=== PATIENT | male | born 1950 | race Caucasian/White ===

== ENCOUNTER 2023-06-19 11:35 | Inpatient (IN) | payer BC, MEDICARE ==
--- NOTE | 2023-06-19 12:15 | ED ---
Abdominal Pain HPI - General Chief Complaint: Abdominal Pain Stated Complaint: ABD pain Time Seen by Provider: 06/19/23 11:50 Source: patient, RN notes reviewed Mode of arrival: EMS Limitations: no limitations - History of Present Illness Initial Comments: Patient is a 72-year-old man who presents to the ED via EMS with a chief complaint of abdominal pain. Patient states this pain started 2 weeks ago and has been increasing since. Patient's pain is localized to the left lower quadrant and periumbilical region and is colicky in nature. Patient denies constipation, but endorses diarrhea over the past 2 days. Denies dark or tarry stools or blood in stool, urinary frequency and urgency. Patient saw his PCP last week, who ordered an abdominal x-ray, which revealed no acute process and was informed by PCP to visit ER for further evaluation due to worsening pain. Patient has a history of multiple abdominal aneurysms, and follows with a vascular team where he is scheduled to see them in August. Patient had reconstructive surgery of his abdominal aorta multiple times. Denies history of CVA and NV. Patient is not on a blood thinner. - Related Data Allergies Allergy/AdvReac Type Severity Reaction Status Date / Time Sulfa (Sulfonamide Allergy Rash/Hives Verified 06/19/23 11:44 Antibiotics) Review of Systems ROS Statement: Those systems with pertinent positive or pertinent negative responses have been documented in the HPI. ROS Other: All systems not noted in ROS Statement are negative. Past Medical History Past Medical History: Diabetes Mellitus, Hypertension Additional Past Medical History / Comment(s): AAA - 2009 History of Any Multi-Drug Resistant Organisms: None Reported Additional Past Surgical History / Comment(s): Aortic aneurysm repair Past Psychological History: No Psychological Hx Reported Smoking Status: Never smoker Past Alcohol Use History: Rare Past Drug Use History: None Reported General Exam Limitations: no limitations General appearance: alert, in no apparent distress Head exam: Present: atraumatic, normocephalic, normal inspection Eye exam: Present: normal appearance, PERRL, EOMI. Absent: scleral icterus, conjunctival injection, periorbital swelling Respiratory exam: Present: normal lung sounds bilaterally. Absent: respiratory distress, wheezes, rales, rhonchi, stridor Cardiovascular Exam: Present: regular rate, normal rhythm, normal heart sounds. Absent: systolic murmur, diastolic murmur, rubs, gallop, clicks GI/Abdominal exam: Present: soft, distended, tenderness (left lower quadrant and periumbilical region), normal bowel sounds Extremities exam: Present: normal inspection, full ROM, normal capillary refill. Absent: tenderness, pedal edema, joint swelling, calf tenderness Back exam: Present: normal inspection Neurological exam: Present: alert, oriented X3, CN II-XII intact Course Vital Signs 06/19/23 11:38 Temperature 98.3 F Pulse Rate 64 Respiratory 18 Rate Blood Pressure 160/81 O2 Sat by Pulse 65 L Oximetry Medical Decision Making - Medical Decision Making Was pt. sent in by a medical professional or institution (, PA, [employer], urgent care, hospital, or longterm...) When possible be specific @ -Was instructed by PCP to come to the ER to be further evaluated for his abdominal pain Did you speak to anyone other than the patient for history (EMS, parent, family, police, friend...)? What history was obtained from this source @ -No Did you review nursing and triage notes (agree or disagree)? Why? @ -I reviewed and agree with nursing and triage notes Were old charts reviewed (outside hosp., previous admission, EMS record, old EKG, old radiological studies, urgent care reports/EKG's, longterm records)? Report findings @ -No old charts were reviewed Differential Diagnosis (chest pain, altered mental status, abdominal pain women, abdominal pain men, vaginal bleeding, weakness, fever, dyspnea, syncope, headache, dizziness, GI bleed, back pain, seizure, CVA, palpatations, mental health, musculoskeletal)? @ -Differential Abdominal Pain Men: Appendicitis, cholecystitis, diverticulosis, ischemic bowel, pancreatitis, hepatitis, UTI, gastroenteritis, AAA, incarcerated hernia, bowel obstruction, constipation, inflammatory bowel, hepatitis, peptic ulcer disease, splenic infarction, perforated viscus, testicular torsion, this is not meant to be an all-inclusive list EKG interpreted by me (3pts min.). @ -None X-rays interpreted by me (1pt min.). @ -None done CT interpreted by me (1pt min.). @ -Ct revealed pathological fracture of the T10 vertebral body and Scattered pulmonary nodules determined by radiology. U/S interpreted by me (1pt. min.). @ -None done What testing was considered but not performed or refused? (CT, X-rays, U/S, labs)? Why? @ -None What meds were considered but not given or refused? Why? @ -None Did you discuss the management of the patient with other professionals (professionals i.e. , PA, [employer], lab, RT, psych nurse, criminal justice social worker, time clock repairer, teacher, prison officer, rn field case manager)? Give summary @ -Discussed with attending admission for further evaluation and treatment by Ortho and oncology Was smoking cessation discussed for >3mins.? @ -No Was critical care preformed (if so, how long)? @ -No Were there social determinants of health that impacted care today? How? (Homelessness, low income, unemployed, alcoholism, drug addiction, transportation, low edu. Level, literacy, decrease access to med. care, fci, r ehab)? @ -No Was there de-escalation of care discussed even if they declined (Discuss DNR or withdrawal of care, Hospice)? DNR status @ -No What co-morbidities impacted this encounter? (DM, HTN, Smoking, COPD, CAD, Cancer, CVA, ARF, Chemo, Hep., AIDS, mental health diagnosis, sleep apnea, morbid obesity)? @ -Diabetes Was patient admitted / discharged? Hospital course, mention meds given and route, prescriptions, significant lab abnormalities, going to OR and other pertinent info. @ -Admitted. 89-year-old male presented to the ED with chief complaint of abdominal pain. CT results concerning for pathological fracture in T10, and multiple scattered nodules in the lungs with a recommendation for metastatic workup. Significant for mild acidosis, fluid bolus given. Patient's pain given IV push of morphine for pain control. Undiagnosed new problem with uncertain prognosis? @ - Yes. Concern for potential metastatic disease. Drug Therapy requiring intensive monitoring for toxicity (Heparin, Nitro, Insulin, Cardizem)? @ -No Were any procedures done? @ -No Diagnosis/symptom? @ -Pathological fracture and metastatic disease Acute, or Chronic, or Acute on Chronic? @ -Acute Uncomplicated (without systemic symptoms) or Complicated (systemic symptoms)? @ -Complicated Side effects of treatment? @ -No Exacerbation, Progression, or Severe Exacerbation? @ -No Poses a threat to life or bodily function? How? (Chest pain, USA, NV, pneumonia, PE, COPD, DKA, ARF, appy, cholecystitis, CVA, Diverticulitis, Homicidal, Suicidal, threat to staff... and all critical care pts) @ -Yes, Probable. CT results likely reveal underlying metastatic disease. - Lab Data Result diagrams: 06/19/23 12:53 06/19/23 12:53 Lab Results 06/19/23 06/19/23 06/19/23 Range/Units 12:53 12:53 12:53 WBC 8.4 (3.8-10.6) k/uL RBC 4.62 (4.30-5.90) m/uL Hgb 15.3 (13.0-17.5) gm/dL Hct 45.9 (39.0-53.0) % MCV 99.3 (80.0-100.0) fL MCH 33.1 (25.0-35.0) pg MCHC 33.3 (31.0-37.0) g/dL RDW 12.3 (11.5-15.5) % Plt Count 247 (150-450) k/uL MPV 7.7 Neutrophils % 77 % Lymphocytes % 12 % Monocytes % 6 % Eosinophils % 2 % Basophils % 1 % Neutrophils # 6.5 (1.3-7.7) k/uL Lymphocytes # 1.1 (1.0-4.8) k/uL Monocytes # 0.5 (0-1.0) k/uL Eosinophils # 0.2 (0-0.7) k/uL Basophils # 0.0 (0-0.2) k/uL Sodium 134 L (137-145) mmol/L Potassium 4.6 (3.5-5.1) mmol/L Chloride 107 (98-107) mmol/L Carbon Dioxide 20 L (22-30) mmol/L Anion Gap 7 mmol/L BUN 24 H (9-20) mg/dL Creatinine 1.35 H (0.66-1.25) mg/dL Est GFR (CKD-EPI)AfAm 60 (>60 ml/min/1.73 sqM) Est GFR (CKD-EPI)NonAf 52 (>60 ml/min/1.73 sqM) Glucose 175 H (74-99) mg/dL Plasma Lactic Acid Simone 1.2 (0.7-2.0) mmol/L Calcium 9.3 (8.4-10.2) mg/dL Total Bilirubin 1.1 (0.2-1.3) mg/dL AST 34 (17-59) U/L ALT 28 (4-49) U/L Alkaline Phosphatase 179 H (38-126) U/L Total Protein 6.8 (6.3-8.2) g/dL Albumin 3.9 (3.5-5.0) g/dL Amylase 65 (30-110) U/L Disposition Clinical Impression: Pathological fracture, Pulmonary nodules/lesions, multiple Disposition: ADMITTED IP TO THIS HOSP Condition: Good Referrals: Ambrocio Senior MD [Primary Care Provider] - 1-2 days Time of Disposition: 15:15
[2023-06-19 12:58] LABS: Basophils % (A) 1 %; Eosinophils # (A) 0.2 k/uL (0-0.7); Eosinophils % (A) 2 %; HCT 45.9 % (39.0-53.0); HGB 15.3 gm/dL (13.0-17.5); Lymphocytes # (A) 1.1 k/uL (1.0-4.8); Lymphocytes % (A) 12 %; MCH 33.1 pg (25.0-35.0); MCHC 33.3 g/dL (31.0-37.0); MCV 99.3 fL (80.0-100.0); Mean Platelet Volume 7.7; Monocytes # (A) 0.5 k/uL (0-1.0); Monocytes % (A) 6 %; Neutrophils # (A) 6.5 k/uL (1.3-7.7); Neutrophils % (A) 77 %; Platelet Count 247 k/uL (150-450); RBC 4.62 m/uL (4.30-5.90); RDW 12.3 % (11.5-15.5); WBC 8.4 k/uL (3.8-10.6)
[2023-06-19 13:11] LABS: ALT 28 U/L (4-49); AST 34 U/L (17-59); African American GFR (CKD) 60 (>60 ml/min/1.73 sqM); Albumin 3.9 g/dL (3.5-5.0); Alkaline Phosphatase 179 U/L (38-126); Amylase 65 U/L (30-110); Anion Gap 7 mmol/L; Blood Urea Nitrogen 24 mg/dL (9-20); Calcium 9.3 mg/dL (8.4-10.2); Carbon Dioxide 20 mmol/L (22-30); Chloride 107 mmol/L (98-107); Glucose 175 mg/dL (74-99); Non-African American GFR(CKD) 52 (>60 ml/min/1.73 sqM); Potassium 4.6 mmol/L (3.5-5.1); Sodium 134 mmol/L (137-145); Total Bilirubin 1.1 mg/dL (0.2-1.3); Total Protein 6.8 g/dL (6.3-8.2)
[2023-06-19] MEDS: SODIUM CHLORIDE 0.9% 500 ML 500 ML IV STA (13:28)
[2023-06-19] MEDS: ONDANSETRON 4 MG/2 ML VIAL IVP STA (14:46)
[2023-06-19] MEDS: MORPHINE SULFATE 2 MG/ML SYRINGE IVP ONE (14:48)
--- NOTE | 2023-06-19 14:48 | CT ---
EXAMINATION TYPE: CT abdomen pelvis w con CT DLP: 2028.9 mGycm, Automated exposure control for dose reduction was used. DATE OF EXAM: 06/19/2023 2:30 PM COMPARISON: None CLINICAL INDICATION:Male, 72 years old with history of pain; LLQ pain TECHNIQUE: Axial CT abdomen pelvis w con;Sagittal and coronal reformats were created on a separate w orkstation. Contrast used:80 mL of Isovue 300 with IV Contrast, (none if empty) Oral contrast used: without Oral Contrast (none if empty) FINDINGS: LOWER CHEST: Scattered pulmonary nodules measuring up to 11 mm in the left lower lobe and millimeters in the right lower lobe. Heart is mildly enlarged for size. Gynecomastia changes. ABDOMEN LIVER: Diffusely hypoattenuating parenchyma. GALLBLADDER AND BILE DUCTS: Unremarkable. PANCREAS: Unremarkable. SPLEEN: Unremarkable. ADRENAL GLANDS: Unremarkable. KIDNEYS AND URETERS: No evidence of hydronephrosis or renal calculus. The ureters are unremarkable. PELVIS BLADDER: Unremarkable REPRODUCTIVE: Prostate is enlarged in size measuring 5.5 cm in transverse dimension. ABDOMEN & PELVIS STOMACH AND BOWEL: No evidence of bowel obstruction. PERITONEUM/RETROPERITONEUM: No evidence of pneumoperitoneum or free fluid. VASCULATURE: No evidence of aortic aneurysm. Left common iliac artery stent graft is patent. Fusiform dilation of the celiac axis just after its origin measuring up to 13 mm. MUSCULOSKELETAL: There is a lucent lesion in the T10 vertebral body and possibly involving T9 and T11 vertebral bodies. There is a fracture line extending through the T10 vertebral body anterior to post erior with extension into the posterior elements the pedicle on the right. Vertebral body series 301 image 19. Moderate disc degeneration changes are present throughout the thoracolumbar spine. Pseudoar throsis of the spinous processes with severe facet joint arthropathy throughout the lower spine. LYMPH NODES: No gross evidence for lymphadenopathy. SOFT TISSUE/ABDOMINAL WALL: Fat-containing inguinal hernias. Fat-containing umbilical hernia. IMPRESSION: 1. Pathologic fracture of the T10 vertebral body. Given there is bridging syndesmophytes throughout the spine, this makes this fracture a pathologic brittle back fracture. Spinal surgical consultation recommended. Further workup for malignancy also recommended. 2. Scattered pulmonary nodules partially visualized consistent for metastatic disease. Further leonora p for malignancy also recommended. 3. 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 4. Prostatomegaly correlate with serum PSA. 5. Hepatic steatosis 6. Left iliac artery stent graft is patent.
[2023-06-19] MEDS ORDERED: NALOXONE 0.4 MG/ML 1 ML VIAL IV PRN (15:39)
[2023-06-19 21:35] LABS: INR 0.9 (<1.2); Partial Thromboplastin Time 23.9 sec (22.0-30.0); Prothrombin Time 10.3 sec (10.0-12.5)
[2023-06-19] MEDS: MORPHINE SULFATE 4 MG/ML SYRINGE IV PRN (23:35)
[2023-06-19] MEDS: ONDANSETRON 4 MG/2 ML VIAL IVP PRN (23:36)
--- NOTE | 2023-06-20 06:48 | P.HPIM ---
History of Present Illness this is a pleasant 72 yo male with past medical history of diabetes , mellitus and hypertension , hyperlipidemia , peripheral vascular disease who present because of abdominal pain , he has this pain for about two weeks now and it started as mild pain in the lower and middle abdomen on the left side at the area of the left flank and was radiating to the front at the level of the umbilicus , he went to see his pcp who did xray for him but this came back negative , it is thought to be a pulled muscle by his doctor so prescribed some excersizes for him , but over the last few days his pain became really worse so he decided to come to the hospital, his pain is 0 without movement shortness of 28-9/10 in severity with movement besides his abdominal exam is benign soft with no abdominal tenderness. The pain feels like sharp. No associated nausea vomiting, he has little bowel movement yesterday. No diarrhea. Patient denies chest pain dyspnea or coughing. No urinary complaints. No weakness or tingling in upper or lower extremities. No headache or dizziness. Patient states he never smoked cigarettes, no alcohol or illicit drugs. He denies any trauma or falling. He just moved from [place] back to [place] last December. 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 However recently his movement. More difficult because of his abdominal pain. Hemodynamically he is stable Laps were unremarkable including CBC, INR, liver enzymes and BMP except for mildly elevated creatinine 1.35, unknown baseline so this could be elements of chronic kidney disease versus multitude kidney injury CT of the abdomen and pelvis with contrast showing pathological fracture of T10 and scattered pulmonary nodule suspicious for metastatic disease. This information were related to the patient and he agrees with the management so far. Currently is on aspirin 81 mg, metoprolol, losartan, hydralazine which are his home medication. Past Medical History Past Medical History: Diabetes Mellitus, Hypertension Additional Past Medical History / Comment(s): AAA - 2010 History of Any Multi-Drug Resistant Organisms: None Reported Additional Past Surgical History / Comment(s): Aortic aneurysm repair Past Psychological History: No Psychological Hx Reported Smoking Status: Never smoker Past Alcohol Use History: Rare Past Drug Use History: None Reported Medications and Allergies Home Medications Medication Instructions Recorded Confirmed Type Ascorbic Acid [Vitamin C] 1,000 mg PO DAILY 06/19/23 06/19/23 History Aspirin EC [Ecotrin Low Dose] 81 mg PO HS 06/19/23 06/19/23 History Atorvastatin Calcium [Lipitor] 80 mg PO HS 06/19/23 06/19/23 History Cholecalciferol [Vitamin D3 (25 25 mcg PO DAILY@1200 06/19/23 06/19/23 History Mcg = 1000 Iu)] Dapagliflozin Propanediol [Farxiga] 10 mg PO DAILY@119906/19/23 06/19/23 History Ezetimibe [Zetia] 10 mg PO 06/19/23 06/19/23 History Famotidine [Pepcid] 20 mg PO BID 06/19/23 06/19/23 History Fenofibrate Nanocrystallized 48 mg PO DAILY@119906/19/23 06/19/23 History [Fenofibrate] Finasteride [Proscar] 5 mg PO DAILY@119906/19/23 06/19/23 History Glimepiride [Amaryl] 2 mg PO DAILY@119906/19/23 06/19/23 History Losartan [Cozaar] 25 mg PO 06/19/23 06/19/23 History Metoprolol Tartrate [Lopressor] 100 mg PO BID 06/19/23 06/19/23 History Mv-Min/Folic/K1/Lycopen/Lutein 1 tab PO DAILY@119906/19/23 06/19/23 History [Centrum Silver Men Tablet] Ninole-3/Dha/Epa/Fish Oil [Fish Oil 1 cap PO DAILY 06/19/23 06/19/23 History 1,000 mg Softgel] cilostazoL 100 mg PO DAILY 06/19/23 06/19/23 History hydrALAZINE HCL [Apresoline] 10 mg PO TID 06/19/23 06/19/23 History Allergies Allergy/AdvReac Type Severity Reaction Status Date / Time Sulfa (Sulfonamide Allergy Rash/Hives Verified 06/19/23 16:19 Antibiotics) Physical Exam Vitals: Vital Signs Temp Pulse Resp BP Pulse Ox 06/20/23 04:38 97.2 F L 72 16 96/61 95 06/19/23 23:40 74 18 119/72 95 06/19/23 16:25 61 18 133/78 93 L 06/19/23 11:38 98.3 F 64 18 160/81 65 L Intake and Output 06/19/23 06/19/23 06/20/23 14:59 22:59 06:59 Output Total 275 Balance -275 Output: Urine 275 Other: # Voids 3 Weight 117.934 kg Results CBC & Chem 7: 06/19/23 12:53 06/19/23 12:53 Labs: Abnormal Lab Results - Last 24 Hours (Table) 06/19/23 Range/Units 12:53 Sodium 134 L (137-145) mmol/L Carbon Dioxide 20 L (22-30) mmol/L BUN 24 H (9-20) mg/dL Creatinine 1.35 H (0.66-1.25) mg/dL Glucose 175 H (74-99) mg/dL Alkaline Phosphatase 179 H (38-126) U/L Assessment and Plan Assessment: Pathological fracture of T10 vertebra suspicious for metastatic disease Abdominal pain secondary to above Multiple pulmonary nodules suspicious for metastatic disease, unknown primary source Hypertension Diabetes mellitus Obesity with BMI of 35.3. Peripheral vascular disease. Continue with pain management Plan: Bedrest with pain management Gentle hydration for 24 hours Orthopedic team consult Patient required to rule out malignancy, he might benefit from biopsy on and/or PET scan hematology/oncology team consult Labs and medication were reviewed.. Continue same treatment. Continue with sym ptomatic treatment. Resume home medication. Monitor labs and vitals. DVT and GI prophylaxis. Further recommendations as per clinical course of the patient DVT prophylaxis: Subcutaneous heparin GI Prophylaxis: Pepcid Prognosis is guarded
[2023-06-20] MEDS: SODIUM CHLORIDE 0.9% 1,000 ML IV SCH (06:59)
[2023-06-20 08:09] LABS: Glucose,Whole Blood 118 mg/dL (70-110)
[2023-06-20] MEDS: METOPROLOL TARTRATE 50 MG TAB PO SCH (08:19)
[2023-06-20] MEDS: FAMOTIDINE 20 MG TAB PO SCH (08:19)
[2023-06-20] MEDS: HEPARIN SODIUM,PORCINE 5,000 UNIT/ML 1 ML VIAL SQ SCH (08:20)
--- NOTE | 2023-06-20 10:52 | P.CNOR ---
History of Present Illness - [facility] Consult date: 06/20/23 Consult reason: other (New left abdominal pain with lesions at T7-8-9 and 10) History of present illness: Patient is a pleasant very pleasant 72-year-old male who is seen and examined at bedside in the emergency room. He is accompanied by his son and his . The patient's primary complaint is that of abdominal pain on his left abdomen which has been worsening over the past several days but started a few weeks ago. He has come to the point where he was having great difficulty trying to get in and out of bed or up at home and presented to the hospital last night. The patient says the pain is at his left abdomen and radiates down along his anterior abdominal wall towards his navel. He says he is not having back pain. He denies any new injury. He is not having changes bowel bladder function. He says he has a history of vascular issues and has had aortic valve and his aorta stented and essentially replaced. He says that was 13 years ago. He says he has had difficulty with his ambulation since that time. He denies any new changes in his lower extremities. He says he is having greater difficulty getting around because of the pain in his abdomen. He says that typically over the past few months he has been having some difficulty walking more than quarter mile or half mile and then has to sit down where his pain subsides and he can get up and walk again. He says he is not having any pain at all while he sits. He says he can lay down without pain but gets uncomfortable because he cannot move well. He denies any chest pain or shortness of breath. He denies any fevers chills or night sweats. He denies any history of any cancers. He admits to history of diabetes. He admits to his significant history with his aorta and aortic surgery at [facility] where he essentially had what sounds like aortic grafting due to significant complications with vascular stenting. He still follows regularly with MRIs yearly for this. He had been having his treatment in [place] where he lives but moved back to [place] about 6 months ago. His issues with his left abdomen are new for him over the past several weeks but have been worsening. He denies any weakness in his lower extremities but has difficulty getting around in general and has been having much more difficulty getting around due to the pain in his abdomen. He denies any specific trauma. He denies any back pain. Review of Systems As stated per HPI. Denies any chest pain shortness of breath. Denies changes of bowel bladder function. Denies any new weakness in his lower extremities but he has had chronic weakness in his lower extremities since his aortic surgery 13 years ago. Past Medical History Past Medical History: Diabetes Mellitus, Hypertension Additional Past Medical History / Comment(s): AAA - 2010 History of Any Multi-Drug Resistant Organisms: None Reported Additional Past Surgical History / Comment(s): Aortic aneurysm repair Past Psychological History: No Psychological Hx Reported Smoking Status: Never smoker Past Alcohol Use History: Rare Past Drug Use History: None Reported Medications and Allergies Home Medications Medication Instructions Recorded Confirmed Type Ascorbic Acid [Vitamin C] 1,000 mg PO DAILY 06/19/23 06/19/23 History Aspirin EC [Ecotrin Low Dose] 81 mg PO HS 06/19/23 06/19/23 History Atorvastatin Calcium [Lipitor] 80 mg PO 06/19/23 06/19/23 History Cholecalciferol [Vitamin D3 (25 25 mcg PO DAILY@119906/19/23 06/19/23 History Mcg = 1000 Iu)] Dapagliflozin Propanediol [Farxiga] 10 mg PO DAILY@119906/19/23 06/19/23 History Ezetimibe [Zetia] 10 mg PO 06/19/23 06/19/23 History Famotidine [Pepcid] 20 mg PO BID 06/19/23 06/19/23 History Fenofibrate Nanocrystallized 48 mg PO DAILY@119906/19/23 06/19/23 History [Fenofibrate] Finasteride [Proscar] 5 mg PO DAILY@119906/19/23 06/19/23 History Glimepiride [Amaryl] 2 mg PO DAILY@119906/19/23 06/19/23 History Losartan [Cozaar] 25 mg PO 06/19/23 06/19/23 History Metoprolol Tartrate [Lopressor] 100 mg PO BID 06/19/23 06/19/23 History Mv-Min/Folic/K1/Lycopen/Lutein 1 tab PO DAILY@119906/19/23 06/19/23 History [Centrum Silver Men Tablet] [place]-3/Dha/Epa/Fish Oil [Fish Oil 1 cap PO DAILY 06/19/23 06/19/23 History 1,000 mg Softgel] cilostazoL 100 mg PO DAILY 06/19/23 06/19/23 History hydrALAZINE HCL [Apresoline] 10 mg PO TID 06/19/23 06/19/23 History Allergies Allergy/AdvReac Type Severity Reaction Status Date / Time Sulfa (Sulfonamide Allergy Rash/Hives Verified 06/19/23 16:19 Antibiotics) Physical Examination Osteopathic Statement: *. No significant issues noted on an osteopathic structural exam other than those noted in the History and Physical/Consult. - L Spine: dermatomal strength & reflexes bilateral Strength: hip flexion: 4/5 (At his bilateral lower extremities he is able to lift his legs up. He is sitting up in a chair when I walked in and says that he feels good while sitting. He is able to flex his hips bilaterally with about 4+ out of 5 strength equal bilaterally. 4+ out of 5 strength with knee e xtension. 5 out of) Strength: hip extension: 4/5 (5 out of 5 strength with dorsiflexion plantarflexion. No significant pain with internal/external rotation of his hips. Calves and thighs soft nontender.) Strength: ankle dorsiflexion: 5/5 (His abdomen is distended. He has a well- healed incision at the left lower abdomen. He locates that where his pain is. Towards his navel. There is some firmness. He has some tenderness with palpation) Results The CT scan results are reviewed as are the images. It shows his prior surgical intervention of his abdominal aorta. I can see the changes at the vertebral bodies at T8-9 and 10 with bony erosion. There is some expansion through T10 and a fracture line at the posterior aspect of the T10 vertebral body. 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 There is marginal syndesmophytes throughout. There is no gross dislocation of the vertebral bodies or joints. There is pseudoarthrosis through the spinous processes with severe facet arthropathy throughout. There is significant disc degeneration at his lower lumbar spine with loss of disc height. - Labs Labs: Abnormal Lab Results - Last 24 Hours (Table) 06/19/23 06/20/23 Range/Units 12:53 08:08 Sodium 134 L (137-145) mmol/L Carbon Dioxide 20 L (22-30) mmol/L BUN 24 H (9-20) mg/dL Creatinine 1.35 H (0.66-1.25) mg/dL Glucose 175 H (74-99) mg/dL POC Glucose (mg/dL) 118 H (70-110) mg/dL Alkaline Phosphatase 179 H (38-126) U/L H & H 06/19/23 Range/Units 12:53 Hgb 15.3 (13.0-17.5) gm/dL Hct 45.9 (39.0-53.0) % Coagulation 06/19/23 Range/Units 20:31 INR 0.9 (<1.2) Result Diagrams: 06/19/23 12:53 06/19/23 12:53 Assessment and Plan Assessment: Multiple thoracic bony lesions T8-9 and 10 with expansile lesion at T10 fracture line at the posterior aspect of the vertebral body of T10 Unknown pathologic diagnosis for bony lesions with possible metastasis of uncertain etiology Abdominal pain at the left towards the umbilicus which may correlate with radiculopathy from T10 level History of significant abdominal and abdominal aorta surgery Enlarged prostate Plan: Multiple thoracic bony lesions T8-9 and 10 with expansile lesion at T10 fracture line at the posterior aspect of the vertebral body of T10 Unknown pathologic diagnosis for bony lesions with possible metastasis of uncertain etiology Abdominal pain at the left towards the umbilicus which may correlate with radi culopathy from T10 level History of significant abdominal and abdominal aorta surgery Enlarged prostate The patient has a number of significant changes at his thoracic spine. There are some potential bony changes at the lumbar spine as well. With the erosive lesions and his pain I think that he needs further imaging. We will need to obtain an MRI of his thoracic spine and his lumbar spine to determine if there are specific lesions and how much they may involve the canal. Will order stat thoracic and lumbar MRIs with and without contrast. He seems to have metastatic lesions at his spine with unknown primary. Hematology oncology has been consulted and will need further workup. In regards to his spine he has significant ankylosis which can put his spine at further risk in terms of stability. For now I have him on bedrest. He may elevate his bed up to 30 degrees without a brace on. Beyond 30 degrees he should have a brace on up to 45 degrees. He should not be getting out of bed. When I saw him he was sitting at bedside and feeling very comfortable without any pain in his back. He has pain over his left abdomen toward his navel and this can correlate with T10 radicular issues and we will have further recommendations based on MRI findings. He should continue with his pain control. It is okay for him to eat today and will obtain the MRIs of his thoracic and lumbar spine as soon as possible. We have ordered a brace for him. I discussed at length the nature of the findings at the CT scan within his vertebrae. He understands that we will need much more workup and evaluation to try to determine the source of the bony erosions. We are initiating this workup now and having further consultation with multiple services. It is difficult to determine how involved this may become and will have further recommendations once we have more information with the MRI and further consulting services.
[2023-06-20] MEDS: FINASTERIDE 5 MG TAB PO SCH (12:34)
[2023-06-20] MEDS: CHOLECALCIFEROL 25 MCG (1000 IU) TABLET PO SCH (12:34)
[2023-06-20] MEDS: DAPAGLIFLOZIN PROPANEDIOL 10 MG TABLET PO SCH (14:54)
[2023-06-20] MEDS: FENOFIBRATE 54 MG TAB PO SCH (14:54)
--- NOTE | 2023-06-20 14:54 | P.CONS ---
History of Present Illness - Reason for Consult Consult date: 06/20/23 Concern for malignancy - Chief Complaint Abdominal pain - History of Present Illness Mr. Estrada is a 72-year-old gentleman with a past medical history significant for abdominal aortic aneurysm requiring vascular stenting for whom we are consulted with regards to metastatic lesions in the thoracic spine. Prior to admission, he noted pain in the left flank/abdomen precipitated by movement over the past 2 weeks. He notes the pain became progressive since onset without nausea, vomiting, diarrhea, or constipation. He denies any bladder/bowel incontinence. He denies any progressive focal weakness in the extremities or saddle anesthesia. Due to the progressive nature of the pain, he presented to [facility] ED for additional management. CT of the abdomen/pelvis on 06/19/2023 noted pathologic fracture of the T10 vertebral body in addition to lucent lesion involving T9-T11 vertebral bodies with fracture at T10 extending into the posterior elements of the pedicle on the right. There is also concern for scattered pulmonary nodules concerning for metastatic disease in addition to prostatomegaly. CMP noted creatinine 1.35 with alkaline phosphatase 179. CBC was normal. Orthopedics has been consulted with MRI of the thoracic and lumbar spine ordered. Currently, he denies any back pain, focal neurologic deficits, or constitutional symptoms. While he has nocturia, he denies any hematuria or dysuria. He denies any history of cigarette smoking or alcohol abuse. He had a brother who had esophageal cancer and mother who had lung cancer. Review of Systems 14 point review of systems was conducted with pertinent positives and negatives as noted per HPI Past Medical History Past Medical History: Diabetes Mellitus, Hypertension Additional Past Medical History / Comment(s): AAA - 2010 History of Any Multi-Drug Resistant Organisms: None Reported Additional Past Surgical History / Comment(s): Aortic aneurysm repair Past Psychological History: No Psychological Hx Reported Smoking Status: Never smoker Past Alcohol Use History: Rare Past Drug Use History: None Reported Medications and Allergies Home Medications Medication Instructions Recorded Confirmed Type Ascorbic Acid [Vitamin C] 1,000 mg PO DAILY 06/19/23 06/19/23 History Aspirin EC [Ecotrin Low Dose] 81 mg PO HS 06/19/23 06/19/23 History Atorvastatin Calcium [Lipitor] 80 mg PO HS 06/19/23 06/19/23 History Cholecalciferol [Vitamin D3 (25 25 mcg PO DAILY@1200 06/19/23 06/19/23 History Mcg = 1000 Iu)] Dapagliflozin Propanediol [Farxiga] 10 mg PO DAILY@1200 06/19/23 06/19/23 History Ezetimibe [Zetia] 10 mg PO HS 06/19/23 06/19/23 History Famotidine [Pepcid] 20 mg PO BID 06/19/23 06/19/23 History Fenofibrate Nanocrystallized 48 mg PO DAILY@1200 06/19/23 06/19/23 History [Fenofibrate] Finasteride [Proscar] 5 mg PO DAILY@1200 06/19/23 06/19/23 History Glimepiride [Amaryl] 2 mg PO DAILY@1200 06/19/23 06/19/23 History Losartan [Cozaar] 25 mg PO 06/19/23 06/19/23 History Metoprolol Tartrate [Lopressor] 100 mg PO BID 06/19/23 06/19/23 History Mv-Min/Folic/K1/Lycopen/Lutein 1 tab PO DAILY@1200 06/19/23 06/19/23 History [Centrum Silver Men Tablet] [place]-3/Dha/Epa/Fish Oil [Fish Oil 1 cap PO DAILY 06/19/23 06/19/23 History 1,000 mg Softgel] cilostazoL 100 mg PO DAILY 06/19/23 06/19/23 History hydrALAZINE HCL [Apresoline] 10 mg PO TID 06/19/23 06/19/23 History Allergies Allergy/AdvReac Type Severity Reaction Status Date / Time Sulfa (Sulfonamide Allergy Rash/Hives Verified 06/19/23 16:19 Antibiotics) Physical Exam Vitals: Vital Signs Temp Pulse Resp BP Pulse Ox 06/20/23 07:30 98.0 F 68 18 133/77 92 L 06/20/23 04:38 97.2 F L 72 16 96/61 95 06/19/23 23:40 74 18 119/72 95 06/19/23 16:25 61 18 133/78 93 L Intake and Output 06/19/23 06/20/23 06/20/23 22:59 06:59 14:59 Output Total 275 Balance -275 Output: Urine 275 Other: # Voids 3 - Constitutional General appearance: cooperative, no acute distress - EENT Eyes: EOMI - Neck Neck: no lymphadenopathy - Respiratory Respiratory: bilateral: CTA - Cardiovascular Rhythm: regular - Gastrointestinal General gastrointestinal: distended, soft, no tenderness - Integumentary Integumentary: normal, no rash - Neurologic Neurologic: CNII-XII intact - Psychiatric Psychiatric: A&O x's 3 Results CBC & Chem 7: 06/19/23 12:53 06/19/23 12:53 Labs: Abnormal Lab Results - Last 24 Hours (Table) 06/20/23 Range/Units 08:08 POC Glucose (mg/dL) 118 H (70-110) mg/dL CT scan - abdomen: report reviewed, image reviewed Assessment and Plan (1) Pathological fracture Current Visit: Yes Status: Acute Code(s): M84.40XA - PATHOLOGICAL FRACTURE, UNSP SITE, INIT ENCNTR FOR FRACTURE SNOMED Code(s): 185919777 (2) Pulmonary nodules/lesions, multiple Current Visit: Yes Status: Acute Code(s): R91.8 - OTHER NONSPECIFIC ABNORMAL FINDING OF LUNG FIELD SNOMED Code(s): 050633791 Plan: #Pathological fracture, lesions in the spine -Mr. Estrada had progressive left flank/abdominal pain of 2 weeks duration -CT abdomen/pelvis with contrast noted pathological fracture at T10 with expansile lesion to the posterior pedicles as well as the lesion involving the vertebral bodies of T9-T11 along with the presence of scattered pulmonary nodules bilaterally and prostatomegaly -He denies any saddle anesthesia, focal weakness, or bladder/bowel incontinence -Ortho consulted and recommended bed rest along with MRI of the thoracic and lumbar spine -Agree with MRIs ordered -Pending the results of MRIs, he may require surgical intervention to be guided by orthopedics -He likely 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 Estrada and his family, who expressed understanding of the plan as outlined above Sam Malone MD Time with Patient: Greater than 30
--- NOTE | 2023-06-20 15:11 | MR ---
EXAMINATION TYPE: MR estela/lspine wo/w con DATE OF EXAM: 06/20/2023 2:40 PM CLINICAL INDICATION:Male, 72 years old with history of Bony erosions T9-10-11, ankylosing spondylosis , back pain, pathologic fractures, mets COMPARISON: TECHNIQUE: Multi planar, multi sequence imaging was performed utilizing: T1-weighted, T2-weighted, a nd turbo inversion recovery imaging of the thoracic and lumbar spine. IV Contrast: 12 cc Gadavist. None. FINDINGS: Alignment: The thoracic and lumbar vertebral bodies have preserved heights and alignment. Cord: The conus medullaris and the distal spinal cord appear unremarkable with regards to their signa l intensity and morphology. Bones/Discs: Scattered abnormal bone marrow signal is seen throughout the spine most pronounced at th e T9 and T10 levels which extends down into the T11 vertebral body. The T10 vertebral body is and to lesser extent the T9 vertebrae are nearly completely replaced soft tissue mass. There are other scatt ered high inversion recovery signal lesions throughout the spine at nearly every vertebral level incl uding within the lumbar spine. Bridging syndesmophytes are better appreciated on CT imaging. Facet miguel int arthropathy throughout the spine worse in the lower lumbar spine particularly L4-L5. THORACIC: Pathologic fracture of T9 with edema anterior to the vertebral bodies at T9 T10-T11. There is soft tissue mass replacing the T9-T10 and T11 vertebral bodies which extends to the posterior endp late of the T10 vertebral body. The spinal canal at T10 is patent. There is mild narrowing posterior to the T10 vertebral body. LUMBAR: T12-L1: No evidence of significant spinal canal stenosis or neural foraminal stenosis. L1-L2: Disc bulge and facet joint arthropathy result in mild spinal canal and mild to moderate bilate ral neural foraminal stenosis. L2-L3: Disc bulge and facet joint arthropathy result in mild spinal canal and mild to moderate bilate ral neural foraminal stenosis. Moderate facet joint arthropathy at this level. L3-L4: Disc bulge and facet joint arthropathy result in mild spinal canal and mild to moderate bilate ral neural foraminal stenosis. L4-L5: Disc bulge and facet joint arthropathy result in mild spinal canal and moderate right and mode rate to severe left neural foraminal stenosis. Severe facet joint arthropathy at this level. L5-S1: The disc is rounded posterior morphology without significant spinal canal stenosis. Facet join t arthropathy with severe bilateral neural foraminal stenosis. Severe facet joint arthropathy at this level. Other findings: None. IMPRESSION: 1. Findings confirmed with pathologic fracture of T10 vertebral body with complete replacement of th e T10 vertebral body and to a lesser extent T9 vertebral body with soft tissue mass. Mass also extend s into the superior aspect of the anterior T11 vertebral body. Posterior extension of the tumor into the spinal canal without significant spinal canal stenosis at this time. 2. Scattered other tiny foci of suspected metastatic disease at nearly every vertebral body level. C orrelate with pet/CT. 3. No evidence for significant spinal canal stenosis in the thoracic spine. No significant neural fo raminal stenosis within the thoracic spine. 4. Degeneration changes in the lumbar spine worse at L4-L5 and L5-S1 with severe facet joint arthrop athy resulting in severe bilateral L5-S1 and moderate to severe left and moderate right L4-L5 neural foraminal stenosis.
[2023-06-20] MEDS: ATORVASTATIN 80 MG TAB PO SCH (21:41)
[2023-06-20] MEDS: EZETIMIBE 10 MG TAB PO SCH (21:41)
[2023-06-20] MEDS: ASPIRIN 81 MG PO SCH (21:42)
[2023-06-20] MEDS: LOSARTAN 25 MG TAB PO SCH (21:42)
[2023-06-20 23:39] LABS: Immunoglobulin M 73.6 mg/dL (40.0-280.0)
[2023-06-21 03:35] LABS: Basophils % (A) 1 %; Eosinophils # (A) 0.1 k/uL (0-0.7); Eosinophils % (A) 4 %; HCT 48.8 % (39.0-53.0); HGB 16.2 gm/dL (13.0-17.5); Lymphocytes # (A) 0.4 k/uL (1.0-4.8); Lymphocytes % (A) 22 %; MCH 33.7 pg (25.0-35.0); MCHC 33.2 g/dL (31.0-37.0); MCV 101.6 fL (80.0-100.0); Mean Platelet Volume 8.7; Monocytes # (A) 0.1 k/uL (0-1.0); Monocytes % (A) 7 %; Neutrophils # (A) 1.3 k/uL (1.3-7.7); Neutrophils % (A) 66 %; Platelet Count 163 k/uL (150-450); RDW 12.2 % (11.5-15.5); WBC 1.9 k/uL (3.8-10.6)
[2023-06-21] MEDS: SODIUM CHLORIDE 0.9% 500 ML 500 ML IV ONE (06:38)
[2023-06-21 06:54] LABS: Glucose,Whole Blood 117 mg/dL (70-110)
--- NOTE | 2023-06-21 07:05 | XR ---
EXAM: XR chest 1V portable CLINICAL INDICATION:Male, 72 years old with history of Increased oxygen needs; [facility] COMPARISON: None. TECHNIQUE: Chest single view. FINDINGS: Lines/tubes/devices: None. Cardiomediastinum: Cardiac silhouette appears moderately enlarged. Mediastinum is somewhat prominent possibilities include lipomatosis. Vasculature: Pulmonary vascular congestion. Mildly increased interstitial markings can be related to congestion or infiltrates. Lungs/pleura: No consolidation, sizeable effusion, or visible pneumothorax. Lung volumes are diminished. Bones/soft tissues: Bony thorax appears grossly intact as seen. Regional soft tissues appear unremarkable. IMPRESSION: Cardiomegaly with vascular congestion and increased interstitial markings, likely edema.
[2023-06-21 07:11] LABS: Glucose,Whole Blood 122 mg/dL (70-110)
[2023-06-21] MEDS: SODIUM CHLORIDE 0.9% 1,000 ML IV ONE (08:33)
[2023-06-21 09:08] LABS: HCT 44.6 % (39.0-53.0); HGB 14.4 gm/dL (13.0-17.5); MCHC 32.3 g/dL (31.0-37.0); MCV 102.3 fL (80.0-100.0); Mean Platelet Volume 8.1; Platelet Count 148 k/uL (150-450); RBC 4.36 m/uL (4.30-5.90); RDW 12.2 % (11.5-15.5); WBC 9.4 k/uL (3.8-10.6)
[2023-06-21 09:09] LABS: Appearance,Urine Cloudy (Clear); Bacteria,Urine Rare /hpf; Bilirubin,Urine Negative (Negative); Blood,Urine Large (Negative); Color,Urine Yellow; Glucose,Urine (UA) 4+ (Negative); Ketones,Urine Negative (Negative); Leukocyte Esterase,Urine Moderate (Negative); Mucus,Urine Rare /hpf; Nitrite,Urine Negative (Negative); Protein,Urine Trace (Negative); RBC,Urine >182 /hpf (0-5); Squamous Epithelial Cell,Urine 1 /hpf (0-4); Urobilinogen,Urine <2.0 mg/dL (<2.0); WBC,Urine 23 /hpf (0-5)
[2023-06-21 09:15] LABS: ALT 22 U/L (4-49); AST 38 U/L (17-59); African American GFR (CKD) 31 (>60 ml/min/1.73 sqM); Alkaline Phosphatase 146 U/L (38-126); Anion Gap 10 mmol/L; Blood Urea Nitrogen 29 mg/dL (9-20); Calcium 8.7 mg/dL (8.4-10.2); Carbon Dioxide 18 mmol/L (22-30); Chloride 109 mmol/L (98-107); Glucose 96 mg/dL (74-99); Magnesium 1.7 mg/dL (1.6-2.3); Non-African American GFR(CKD) 27 (>60 ml/min/1.73 sqM); Phosphorus 1.6 mg/dL (2.5-4.5); Potassium 3.9 mmol/L (3.5-5.1); Sodium 137 mmol/L (137-145); Total Bilirubin 1.8 mg/dL (0.2-1.3); Total Protein 5.6 g/dL (6.3-8.2)
[2023-06-21 09:51] LABS: Band Neutrophils % 4 %; Lymphocytes # (M) 0.38 k/uL (1.0-4.8); Metamyelocytes # (M) 0.09 k/uL (0); Metamyelocytes % 1 %; Monocytes # (M) 0.19 k/uL (0-1.0); Myelocytes # (M) 0.09 k/uL (0); Myelocytes % 1 %; Neutrophils % (M) 89 %; Nucleated Red Blood Cells 0 /100 WBC (0-0); Total Cells Counted 200
--- NOTE | 2023-06-21 10:06 | P.PN ---
Progress Note - Text Progress Note Date: 06/21/23 The patient is seen and examined today at bedside in the intensive care unit. The patient had been on the regular medical floor yesterday evening after the emergency room and had been maintaining well however earlier this morning he was diaphoretic and was found to have significant hypotension with a systolic to the 60s. The 18 was called and he was transferred to the intensive care unit. They have been continuing to manage his blood pressure which remains slightly low but he is responsive and maintaining with his systolic in the 80s to 90s. He is on oxygen as he was slightly hypoxic. He is cardiac rhythm spontaneously switch from sinus to atrial fibrillation this morning as well. He has no history of atrial fibrillation in the past. He has some increase in his creatinine clearance as well. There was blood at his urethra but there is no gross hematuria. The patient denies any new neurologic changes in his lower extremities. He denies any back pain. He still has some soreness and pain in his left abdomen. His MRI of his thoracic spine and his lumbar spine was completed yesterday evening, and I have reviewed the images and the results. Physical Exam He is awake and alert answering questions appropriately. He is not complaining of specific pain. Tmax of 101 His pressure is 81/40 currently he is in atrial fibrillation Abdomen is obese with slight distention. He is on oxygen mask and breathing comfortably at 50%. Chest has good excursion deep and space expiration Extremities have not had neurologic change from yesterday. Calves and thighs were soft nontender without evidence of DVT. Thoracic and lumbar MRI is reviewed. There are degenerative changes in the lumbar spine which appear chronic. At the thoracic spine there is complete infiltration of bony mass within T10. It is expanding towards the canal but does not have severe canal compromise. There is expansion across the disc space to T9 as well and towards T11. There are a number of small spots that numerous vertebrae most severe at T9-10. There is significant signal change to indicate bony metastasis. Assessment/Plan New onset hypotension and new onset atrial fibrillation this morning being managed in the intensive care unit Pathologic fracture T9 and T10 with bony infiltration completely at the T10 and into T9 as well as T11, without neurologic compromise Ankylosing spondylitis Metastasis with unknown primary In regards to the patient's thoracic spine, there is complete bony infiltration at T10 and into T9 and T11 as well. There is evidence of pathologic fracture and I think there is instability at these levels. The patient also has ankylosing spondylitis and with the weakening of the vertebrae in multiple levels and the ankylosis I think the patient would be at risk for significant instability. I think that the patient would need surgical stabilization with mu ltilevel fusion at his thoracic to his lumbar spine. This may involve multiple levels above and below the infiltrative levels possibly from T6-L2 with potential corpectomy and anterior grafting. Certainly this would be an extensive procedure and would involve significant risk even without the other medical current issues. I think that this case would be extending beyond the scope of our service here at [facility] and he would best served with transfer to a tertiary facility. I discussed the case with his primary care physician who is willing to accept the patient at [facility] for further workup and definitive care. I discussed case with the family and they are considering this as well. The patient is continuing his medical management in intensive care unit for his multiple current issues including his hypotension and new onset atrial fibrillation. The patient's creatinine clearance has significantly increased and his renal function will be compromised as well. He is continuing his current workup and with further imaging and testing. He is going to be managed and stabilized in terms of his pressures and rhythm intensive care unit. I think the best course would be to plan to transfer the patient as soon as he is able to [facility] for continued medical management workup and definitive treatment. I discussed this with the the ICU physician as well as primary service, and nursing staff. I also discussed this with family and they seem to understand.
[2023-06-21] MEDS: NOREPINEPHRINE 4 MG in SODIUM CHLORIDE 0.9% 250 ML IV SCH (10:15)
[2023-06-21] MEDS: AMIODARONE 360 MG in DEXTROSE 5% IN WATER 200 ML IV ONE (10:20)
[2023-06-21] MEDS: DEXTROSE 5% IN WATER 100 ML with AMIODARONE 150 MG IV ONE (10:25)
[2023-06-21] MEDS: SODIUM CHLORIDE 0.9% 1,000 ML IV SCH (10:27)
--- NOTE | 2023-06-21 10:53 | P.NPCON ---
History of Present Illness - Reason for Consult acute renal failure - History of Present Illness Patient is a 72-year-old male with history of type 2 diabetes, hypertension and peripheral vascular disease who is admitted to the hospital with complaints of abdominal pain which has been going on for about 2-3 weeks. No history of nausea vomiting or abdominal pain. No history of fever or chills No urinary complaints CT of the abdomen showed pathology Fracture of T10 with scattered pulmonary nodules suspicious for metastatic disease. Patient was transferred to the ICU due to hypotension. He developed A. fib with RVR with systolic blood pressure in the 70s. Urine output has been low. Serum creatinine was 1.3 on initial admission and increased to 2.[address] of the abdomen did not show any evidence of obstructive uropathy. Maintained on losartan and Farxiga prior to admission. Urethral bleeding was noted yesterday prior to Rivera catheter placement. Review of Systems As per HPI Past Medical History Past Medical History: Diabetes Mellitus, Hypertension Additional Past Medical History / Comment(s): AAA - 2009 History of Any Multi-Drug Resistant Organisms: None Reported Additional Past Surgical History / Comment(s): Aortic aneurysm repair Past Anesthesia/Blood Transfusion Reactions: No Reported Reaction Past Psychological History: No Psychological Hx Reported Smoking Status: Never smoker Past Alcohol Use History: Rare Past Drug Use History: None Reported Medications and Allergies Home Medications Medication Instructions Recorded Confirmed Type Ascorbic Acid [Vitamin C] 1,000 mg PO DAILY 06/19/23 06/19/23 History Aspirin EC [Ecotrin Low Dose] 81 mg PO HS 06/19/23 06/19/23 History Atorvastatin Calcium [Lipitor] 80 mg PO HS 06/19/23 06/19/23 History Cholecalciferol [Vitamin D3 (25 25 mcg PO DAILY@119906/19/23 06/19/23 History Mcg = 1000 Iu)] Dapagliflozin Propanediol [Farxiga] 10 mg PO DAILY@119906/19/23 06/19/23 History Ezetimibe [Zetia] 10 mg PO HS 06/19/23 06/19/23 History Famotidine [Pepcid] 20 mg PO BID 06/19/23 06/19/23 History Fenofibrate Nanocrystallized 48 mg PO DAILY@119906/19/23 06/19/23 History [Fenofibrate] Finasteride [Proscar] 5 mg PO DAILY@119906/19/2306/18/24 History Glimepiride [Amaryl] 2 mg PO DAILY@1200 06/19/23 06/19/23 History Losartan [Cozaar] 25 mg PO HS 06/19/23 06/19/23 History Metoprolol Tartrate [Lopressor] 100 mg PO BID 06/19/23 06/19/23 History Mv-Min/Folic/K1/Lycopen/Lutein 1 tab PO DAILY@1200 06/19/23 06/19/23 History [Centrum Silver Men Tablet] Hobbs-3/Dha/Epa/Fish Oil [Fish Oil 1 cap PO DAILY 06/19/23 06/19/23 History 1,000 mg Softgel] cilostazoL 100 mg PO DAILY 06/19/23 06/19/23 History hydrALAZINE HCL [Apresoline] 10 mg PO TID 06/19/23 06/19/23 History Allergies Allergy/AdvReac Type Severity Reaction Status Date / Time Sulfa (Sulfonamide Allergy Rash/Hives Verified 06/19/23 16:19 Antibiotics) Physical Exam Vitals: Vital Signs Temp Pulse Pulse Resp BP BP Pulse Ox 06/21/23 09:15 107 H 16 82/53 90 L 06/21/23 09:00 120 H 21 82/47 84 L 06/21/23 08:45 81 23 82/53 06/21/23 08:30 81 17 81/47 89 L 06/21/23 08:15 80 18 78/49 92 L 06/21/23 08:00 101.7 F H 82 15 81/50 89 L 06/21/23 07:45 83 24 76/50 95 06/21/23 07:30 84 19 70/49 96 06/21/23 07:15 102.6 F H 90 22 65/49 91 L 06/21/23 06:30 100.1 F H 90 21 63/40 92 L 06/21/23 06:00 100.8 F H 95 20 77/41 95 06/21/23 02:43 97.6 F 90 20 164/81 94 L 06/20/23 20:32 98.3 F 62 20 128/74 93 L 06/20/23 14:56 98.0 F 68 20 137/83 93 L Intake and Output 06/20/23 06/21/23 06/21/23 22:59 06:59 14:59 Intake Total 190 595 7674 Output Total 480 30 Balance 846 993 4935 Intake: IV 2000 Sodium Chloride 0.9% 1, 2000 000 ml @ 999 mls/hr IV . Q1H1M ONE Rx#:[id number] Intake, IV Titration 150 Amount Sodium Chloride 0.9% 1, 150 000 ml @ 75 mls/hr IV . [id number] [facility] Rx#:[id number] Oral 650 Output: Urine 480 30 Other: Voiding Method Urinal Urinal Indwelling Catheter Patient is awake, comfortable, no acute distress Examination of the heart S1 and S2 Examination of the lungs bilateral breath sounds are heard Abdomen is soft nontender Examination of lower extremities shows no significant edema [employer] exam grossly intact Results - Lab Results Most recent lab results Calcium 8.7 mg/dL (8.4-10.2) 06/21/23 08:37 Phosphorus 1.6 mg/dL (2.5-4.5) L 06/21/23 08:37 Magnesium 1.7 mg/dL (1.6-2.3) 06/21/23 08:37 06/21/23 08:37 06/21/23 08:37 Assessment and Plan Assessment: 1. Acute kidney injury ATN currently oliguric secondary to hypotension and A. fib. Angiotensin receptor blockers currently on hold.No evidence of obstruction on CT of the abdomen. currently maintained on IV fluids. UA shows RBCs more than 182 WBCs 23 with trace protein. Currently with indwelling Rivera catheter 2. A. fib with RVR 3. Pathology occult fracture in T10 with multiple scattered pulmonary nodules suggestive of metastatic process 4. History of BPH maintained on Proscar 5. Type 2 diabetes maintained on S GLT2i Plan: Continue IV saline Patient continue off of losartan Add pressors as blood pressure remains low Antiarrhythmic medications as per cardiology. Continue with empiric antibiotics. Urine culture is pending Thank you for the consultation. We will continue to follow the patient with you during his hospitalization.
[2023-06-21 11:44] LABS: INR 1.1 (<1.2); Partial Thromboplastin Time 26.7 sec (22.0-30.0); Prothrombin Time 12.2 sec (10.0-12.5)
[2023-06-21 11:47] LABS: Creatine Kinase 165 U/L (55-170)
[2023-06-21 11:51] LABS: Glucose,Whole Blood 101 mg/dL (70-110)
[2023-06-21 12:05] LABS: Troponin I 0.169 ng/mL (0.000-0.034)
--- NOTE | 2023-06-21 12:11 | US ---
EXAMINATION TYPE: US venous doppler duplex LE DATE OF EXAM: 06/21/2023 10:05 AM COMPARISON: NONE CLINICAL INDICATION: Male, 72 years old with history of r/o blood clot, check flow; Portable ICU breanna ent. No redness. SIDE PERFORMED: Bilateral TECHNIQUE: The lower extremity deep venous system is examined utilizing real time linear array sonog alhaji with graded compression, doppler sonography and color-flow sonography. VESSELS IMAGED: Common Femoral Vein Deep Femoral Vein Greater Saphenous Vein * Femoral Vein Popliteal Vein Small Saphenous Vein * Proximal Calf Veins (* superficial vessels) Right Leg: Negative for DVT, CFV and GSV not visualized due to arterial line bandage Left Leg: Negative for DVT, GSV not visualized IMPRESSION: Grayscale, color doppler, spectral doppler imaging performed of the deep veins of the lo wer extremities. There is normal flow, compressibility, vascular waveforms.
--- NOTE | 2023-06-21 12:12 | US ---
EXAMINATION TYPE: US kidneys/renal and bladder DATE OF EXAM: 06/21/2023 COMPARISON: NONE CLINICAL INDICATION: Male, 72 years old with history of PAM; Abnormal labs. Bladder solis. EXAM MEASUREMENTS: Right Kidney: 11.5 x 4.7 x 5.9 cm Left Kidney: 10.74 x 4.3 x 6.0 cm Right Kidney: No hydronephrosis or masses seen Left Kidney: Inferior pole obscured by bowel gas Bladder: Unable to visualize There is no evidence for hydronephrosis at this point in time. No nephrolithiasis is seen. No betty s are identified. The urinary bladder demonstrates Solis catheter in place. IMPRESSION: No evidence for obstructive uropathy. No renal calculi definitively visualized.
[2023-06-21 12:16] LABS: C Reactive Protein 6.4 mg/dL (<1.0)
[2023-06-21] MEDS ORDERED: Potassium Replacement Protocol 1 EACH MISC MISCELLANE PRN (13:16)
[2023-06-21] MEDS ORDERED: Phosphorus Replacement Protoco 1 EACH MISC MISCELLANE PRN (13:16)
[2023-06-21] MEDS ORDERED: Magnesium Replacement Protocol 1 EACH MISC MISCELLANE PRN (13:18)
[2023-06-21] MEDS: MAGNESIUM SULFATE-D5W PMX 1 GM in DEXTROSE/WATER 1 100ML.BAG IVPB ONE (13:49)
[2023-06-21] MEDS: POTASSIUM CHLORIDE ER 20 MEQ TAB.ER PO SCH (13:50)
[2023-06-21] MEDS: SODIUM PHOSPHATE 30 MMOL in DEXTROSE 5% IN WATER 250 ML IVPB ONE (13:50)
[2023-06-21] MEDS: FUROSEMIDE 10 MG/ML 4 ML VIAL IV STA (13:55)
[2023-06-21] MEDS: FUROSEMIDE 10 MG/ML 4 ML VIAL ONE (13:56)
--- NOTE | 2023-06-21 14:58 | P.PN ---
Subjective Progress Note Date: 06/21/23 Principal diagnosis: Malignancy of unknown primary -MRI of the thoracic and lumbar spine noted soft tissue component replacing T10 vertebral body and most of the T9 vertebral body with protrusion into the spinal canal without stenosis or compression -Atrial fibrillation with RVR and hypotension developed overnight -He noted having shakes in his hands around the time he developed atrial fibrillation with RVR and does not recall being transferred to the ICU -He continues to deny any back pain or focal neurologic deficits Objective - Vital Signs Vital signs: Vital Signs Temp 100.4 F H 06/21/23 12:00 Pulse 109 H 06/21/23 13:15 Resp 28 H 06/21/23 13:15 BP 86/57 06/21/23 13:15 Pulse Ox 94 L 06/21/23 13:15 FiO2 Intake & Output 06/20/23 06/21/23 06/21/23 18:59 06:59 18:59 Intake Total 329 956 6236.223 Output Total 480 215 Balance 452 706 9032.223 Weight 117.934 kg Intake: IV 2699.99 Amiodarone 360 mg In 99.99 Dextrose 5% in Water 200 ml @ 1 MG/MIN 33.333 mls/ hr IV .Q6H ONE Rx#: [id number] Dextrose 5% in Water 100 100 ml @ 618 mls/hr IV .Q10M ONE with Amiodarone 150 mg Rx#:[id number] Sodium Chloride 0.9% 1, 500 000 ml @ 100 mls/hr IV . Q10H [facility] Rx#:[id number] Sodium Chloride 0.9% 1, 2000 000 ml @ 999 mls/hr IV . Q1H1M ONE Rx#:[id number] Intake, IV Titration 150 11.233 Amount Norepinephrine 4 mg In 11.233 Sodium Chloride 0.9% 250 ml @ 0.03 MCG/KG/MIN 13. 48 mls/hr IV .[id number] [facility] Rx#:[id number] Sodium Chloride 0.9% 1, 150 000 ml @ 75 mls/hr IV . [id number] [facility] Rx#:[id number] Oral 650 Output: Urine 480 215 Other: Voiding Method Urinal Indwelling Catheter ABP, PAP, CO, CI - Last Documented Arterial Blood Pressure 98/61 - Constitutional General appearance: Present: cooperative, no acute distress - EENT Eyes: Present: EOMI - Respiratory Respiratory: bilateral: CTA - Cardiovascular Rhythm: regularly irregular - Gastrointestinal General gastrointestinal: Present: distended, soft - Integumentary Integumentary: Present: pale. Absent: rash - Neurologic Neurologic: Present: CNII-XII intact. Absent: focal deficits - Psychiatric Psychiatric: Present: A&O x's 3 - Labs CBC & Chem 7: 06/21/23 08:37 06/21/23 08:37 Labs: Abnormal Lab Results - Last 24 Hours (Table) 06/21/23 06/21/23 06/21/23 Range/Units 02:59 06:52 07:10 WBC 1.9 L (3.8-10.6) k/uL MCV 101.6 H (80.0-100.0) fL Plt Count (150-450) k/uL Neutrophils # (Manual) (1.3-7.7) k/uL Lymphocytes # 0.4 L (1.0-4.8) k/uL Lymphocytes # (Manual) (1.0-4.8) k/uL Metamyelocytes # (Man) (0) k/uL Myelocytes # (Manual) (0) k/uL Chloride (98-107) mmol/L Carbon Dioxide (22-30) mmol/L BUN (9-20) mg/dL Creatinine (0.66-1.25) mg/dL POC Glucose (mg/dL) 117 H 122 H (70-110) mg/dL Phosphorus (2.5-4.5) mg/dL Total Bilirubin (0.2-1.3) mg/dL Alkaline Phosphatase (38-126) U/L Troponin I (0.000-0.034) ng/mL C-Reactive Protein (<1.0) mg/dL Total Protein (6.3-8.2) g/dL Albumin (3.5-5.0) g/dL Urine Protein (Negative) Urine Glucose (UA) (Negative) Urine Blood (Negative) Ur Leukocyte Esterase (Negative) Urine RBC (0-5) /hpf Urine WBC (0-5) /hpf Urine Bacteria (None) /hpf Urine Mucus (None) /hpf 06/21/23 06/21/23 06/21/23 Range/Units 08:07 08:37 08:37 WBC (3.8-10.6) k/uL MCV 102.3 H (80.0-100.0) fL Plt Count 148 L (150-450) k/uL Neutrophils # (Manual) 8.70 H (1.3-7.7) k/uL Lymphocytes # (1.0-4.8) k/uL Lymphocytes # (Manual) 0.38 L (1.0-4.8) k/uL Metamyelocytes # (Man) 0.09 H (0) k/uL Myelocytes # (Manual) 0.09 H (0) k/uL Chloride 109 H (98-107) mmol/L Carbon Dioxide 18 L (22-30) mmol/L BUN 29 H (9-20) mg/dL Creatinine 2.33 H (0.66-1.25) mg/dL POC Glucose (mg/dL) (70-110) mg/dL Phosphorus 1.6 L (2.5-4.5) mg/dL Total Bilirubin 1.8 H (0.2-1.3) mg/dL Alkaline Phosphatase 146 H (38-126) U/L Troponin I (0.000-0.034) ng/mL C-Reactive Protein (<1.0) mg/dL Total Protein 5.6 L (6.3-8.2) g/dL Albumin 3.0 L (3.5-5.0) g/dL Urine Protein Trace H (Negative) Urine Glucose (UA) 4+ H (Negative) Urine Blood Large H (Negative) Ur Leukocyte Esterase Moderate H (Negative) Urine RBC >182 H (0-5) /hpf Urine WBC 23 H (0-5) /hpf Urine Bacteria Rare H (None) /hpf Urine Mucus Rare H (None) /hpf 06/21/23 06/21/23 Range/Units 10:28 10:28 WBC (3.8-10.6) k/uL MCV (80.0-100.0) fL Plt Count (150-450) k/uL Neutrophils # (Manual) (1.3-7.7) k/uL Lymphocytes # (1.0-4.8) k/uL Lymphocytes # (Manual) (1.0-4.8) k/uL Metamyelocytes # (Man) (0) k/uL Myelocytes # (Manual) (0) k/uL Chloride (98-107) mmol/L Carbon Dioxide (22-30) mmol/L BUN (9-20) mg/dL Creatinine (0.66-1.25) mg/dL POC Glucose (mg/dL) (70-110) mg/dL Phosphorus (2.5-4.5) mg/dL Total Bilirubin (0.2-1.3) mg/dL Alkaline Phosphatase (38-126) U/L Troponin I 0.169 H* (0.000-0.034) ng/mL C-Reactive Protein 6.4 H (<1.0) mg/dL Total Protein (6.3-8.2) g/dL Albumin (3.5-5.0) g/dL Urine Protein (Negative) Urine Glucose (UA) (Negative) Urine Blood (Negative) Ur Leukocyte Esterase (Negative) Urine RBC (0-5) /hpf Urine WBC (0-5) /hpf Urine Bacteria (None) /hpf Urine Mucus (None) /hpf Assessment and Plan (1) Pathological fracture Current Visit: Yes Status: Acute Code(s): M84.40XA - PATHOLOGICAL FRACTURE, UNSP SITE, INIT ENCNTR FOR FRACTURE SNOMED Code(s): 683028949 (2) Pulmonary nodules/lesions, multiple Current Visit: Yes Status: Acute Code(s): R91.8 - OTHER NONSPECIFIC ABNORMAL FINDING OF LUNG FIELD SNOMED Code(s): 191501435 Plan: #Pathological fracture, metastatic malignancy -Mr. Estrada had progressive left flank/abdominal pain of 2 weeks duration -CT abdomen/pelvis with contrast noted pathological fracture at T10 with expansile lesion to the posterior pedicles as well as the lesion involving the vertebral bodies of T9-T11 along with the presence of scattered pulmonary nodules bilaterally and prostatomegaly -He denies any saddle anesthesia, focal weakness, or bladder/bowel incontinence -PSA along with myeloma labs ordered yesterday are still pending -MRI of the thoracic and lumbar spine performed on 06/20/2023 noted soft tissue replacement of the T10 vertebral body and most of the T9 vertebral body with protrusion into the spinal canal, but no evidence of stenosis -Clinically, he is neurologically stable -His hospital course early this morning was complicated by atrial fibrillation with RVR resulting in hypotension requiring amiodarone and Levophed for blood pressure support -His case was discussed between Dr. Haley and his PCP Dr. Senior in [place], [place] with plans to transfer to [facility] for surgical evaluation -I discussed with Mr. Estrada and his that he would have to be off of pressors and have stabilization of atrial fibrillation prior to proceeding with surgery -We also discussed that surgery would be both diagnostic and therapeutic and would help us obtain diagnosis -We discussed that complete staging workup would not be required prior to pursuing surgical intervention -Depending on diagnosis and his hospital course, PET/CT outpatient or CT chest with contrast and nuclear medicine bone scan inpatient could be performed -Mr. Estrada and his would like to follow-up with us upon discharge following any surgical intervention -Their information was obtained and we will make sure to arrange for follow-up #Atrial fibrillation with RVR -Developed early in the morning of 06/21/2023 -Currently on amiodarone and requiring Levophed for blood pressure support -Management per primary and cardiology teams -Would likely need cardiology clearance prior to pursuing surgical intervention Sam Malone MD
--- NOTE | 2023-06-21 15:58 | P.CNPUL ---
History of Present Illness Consult date: 06/21/23 Chief complaint: Hypotension History of present illness: This is a 72-year-old male patient was transferred to the intensive care unit for hypotension and acute kidney injury. The patient is 72 and he presented with pain in his left flank and abdomen of few weeks duration. He was also having some nausea and emesis. He has a primary care physician out of [facility]. He recently relocated to [facility]. CAT scan of the abdomen and pelvis was done on 06/19/2023 and the patient was noted to have a pathologic fracture of the T10 vertebral body in addition to lucent lesion in the T9-T11 vertebra body and fracture of the T10 extending into the posterior elements of the pedicle on the right. There were also scattered bilateral pulmonary nodules highly suggestive of metastatic disease. The patient is not known to have any underlying malignancy. He apparently has been having some bloody urine and currently has a Rivera catheter in place and urine output is nonbloody. He was admitted to the hospital and spine surgery was involved in his care along with medical oncology. MRI of the spine was also done that showed essentially similar findings. The patient has confirmation of a pathologic fracture of the level of T10 vertebral body and complete replacement of the T10 vertebral body and to a lesser extent involvement of the T9 vertebral body with soft tissue mass. The mass extended into the superior aspect of the T11 vertebral body. There is also posterior extension of the tumor into the spinal canal without causing any spinal stenosis or encroachment of the spine. Note that the patient was not having any motor function deficits prior to his admission. He denies having any back pain and he denies having any weakness in lower extremities. Spine surgery has been consulted and based on my conversati on with the spine surgeon, the spine itself is felt to be unstable. Subsequently, the patient becomes hypotensive. He was given several bolus of IV fluids on the medical floor and the patient continued to be hypotensive after a total of 2 L and following that he was transferred to the intensive care unit and was started on pressors which is currently running at 0.1 mcg/kg/min. At the same time, the patient has sustained an acute kidney injury. Creatinine is up to 2.3 with a BUN of 29. Sodium levels at 137. The white cell count of 9.4 with a hemoglobin 14.4 and platelet count of 148. Troponin was at 0.169. proBNP level is 4000. UA is showing 23 WBCs and multiple RBCs. Urine output is nonbloody at this point in time. The patient is currently on oxygen at 6 L/min nasal cannula with a pulse ox of 94%. Chest x-ray was done and it showed cardiomegaly with pulm vascular congestion and increased interstitial markings likely secondary to CHF. His baseline LV function is not known and echocardiogram has been ordered. Doppler of the lower extremity was done and it showed no evidence of any DVT. The patient is currently also in atrial fibrillation with rapid ventricular response. The patient was given amiodarone bolus and currently he is on amiodarone drip and rate is under better control. He was given IV Rocephin as an empiric antibiotic coverage. On his blood work, he did have a anion gap metabolic acidosis and he was started on a bicarb infusion at a rate of 75 cc an hour. 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 He has undergone previous abdominal aortic aneurysm repair back in 2009. Review of Systems Constitutional: Reports daytime sleepiness, Reports fatigue, Reports lethargy, Reports poor appetite, Reports weakness Eyes: denies as per HPI, denies blurred vision, denies bulging eye, denies decreased vision, denies diplopia, denies discharge, denies dry eye, denies irritation, denies itching, denies pain, denies photophobia, denies loss of peripheral vision, denies loss of vision, denies tunnel vision/blind spots Ears: deny: decreased hearing, ear discharge, earache, tinnitus Ears, nose, mouth and throat: Reports as per HPI Breasts: absent: as per HPI, gynecomastia Cardiovascular: Reports decreased exercise tolerance, Reports dyspnea on exertion, Reports irregular heart beat, Reports shortness of breath Respiratory: Reports dyspnea Gastrointestinal: Reports abdominal pain Genitourinary: Reports as per HPI Musculoskeletal: Reports as per HPI Musculoskeletal: bilateral: ankle swelling, absent: ankle pain, ankle stiffness Integumentary: Reports as per HPI Neurological: Reports as per HPI Psychiatric: Reports as per HPI Endocrine: Reports as per HPI, Reports fatigue Hematologic/Lymphatic: Reports as per HPI Past Medical History Past Medical History: Diabetes Mellitus, Hypertension Additional Past Medical History / Comment(s): AAA - 2010 History of Any Multi-Drug Resistant Organisms: None Reported Additional Past Surgical History / Comment(s): Aortic aneurysm repair Past Anesthesia/Blood Transfusion Reactions: No Reported Reaction Past Psychological History: No Psychological Hx Reported Smoking Status: Never smoker Past Alcohol Use History: Rare Past Drug Use History: None Reported Medications and Allergies Home Medications Medication Instructions Recorded Confirmed Type Ascorbic Acid [Vitamin C] 1,000 mg PO DAILY 06/19/23 06/19/23 History Aspirin EC [Ecotrin Low Dose] 81 mg PO HS 06/19/23 06/19/23 History Atorvastatin Calcium [Lipitor] 80 mg PO HS 06/19/23 06/19/23 History Cholecalciferol [Vitamin D3 (25 25 mcg PO DAILY@119906/19/23 06/19/23 History Mcg = 1000 Iu)] Dapagliflozin Propanediol [Farxiga] 10 mg PO DAILY@1200 06/19/23 06/19/23 History Ezetimibe [Zetia] 10 mg PO 06/19/23 06/19/23 History Famotidine [Pepcid] 20 mg PO BID 06/19/23 06/19/23 History Fenofibrate Nanocrystallized 48 mg PO DAILY@1200 06/19/23 06/19/23 History [Fenofibrate] Finasteride [Proscar] 5 mg PO DAILY@119906/19/23 06/19/23 History Glimepiride [Amaryl] 2 mg PO DAILY@1200 06/19/23 06/19/23 History Losartan [Cozaar] 25 mg PO 06/19/23 06/19/23 History Metoprolol Tartrate [Lopressor] 100 mg PO BID 06/19/23 06/19/23 History Mv-Min/Folic/K1/Lycopen/Lutein 1 tab PO DAILY@1200 06/19/23 06/19/23 History [Centrum Silver Men Tablet] [place]-3/Dha/Epa/Fish Oil [Fish Oil 1 cap PO DAILY 06/19/23 06/19/23 History 1,000 mg Softgel] cilostazoL 100 mg PO DAILY 06/19/23 06/19/23 History hydrALAZINE HCL [Apresoline] 10 mg PO TID 06/19/23 06/19/23 History Allergies Allergy/AdvReac Type Severity Reaction Status Date / Time Sulfa (Sulfonamide Allergy Rash/Hives Verified 06/19/23 16:19 Antibiotics) Physical Exam Vitals: Vital Signs Temp Pulse Pulse Resp BP BP Pulse Ox 06/21/23 13:15 109 H 28 H 86/57 94 L 06/21/23 13:00 131 H 22 94 L 06/21/23 12:45 113 H 23 94 L 06/21/23 12:30 122 H 19 103/67 95 06/21/23 12:15 117 H 22 81/62 94 L 06/21/23 12:00 100.4 F H 110 H 22 99/58 92 L 06/21/23 11:45 114 H 21 72/61 95 06/21/23 11:30 128 H 17 80/53 94 L 06/21/23 11:15 130 H 11 L 97/64 93 L 06/21/23 11:00 129 H 25 H 122/77 94 L 06/21/23 10:45 108 H 22 105/63 93 L 06/21/23 10:30 116 H 22 82/59 95 06/21/23 10:15 121 H 22 77/56 91 L 06/21/23 10:00 129 H 19 72/53 93 L 06/21/23 09:45 125 H 22 78/54 95 06/21/23 09:30 128 H 23 81/54 98 06/21/23 09:15 107 H 16 82/53 90 L 06/21/23 09:00 120 H 21 82/47 84 L 06/21/23 08:45 81 23 82/53 06/21/23 08:30 81 17 81/47 89 L 06/21/23 08:15 80 18 78/49 92 L 06/21/23 08:00 101.7 F H 82 15 81/50 89 L 06/21/23 07:45 83 24 76/50 95 06/21/23 07:30 84 19 70/49 96 06/21/23 07:15 102.6 F H 90 22 65/49 91 L 06/21/23 06:30 100.1 F H 90 21 63/40 92 L 06/21/23 06:00 100.8 F H 95 20 77/41 95 06/21/23 02:43 97.6 F 90 20 164/81 94 L 06/20/23 20:32 98.3 F 62 20 128/74 93 L Intake and Output 06/21/23 06/21/23 06/21/23 06:59 14:59 22:59 Intake Total 650 2711.223 Output Total 480 215 Balance 170 2496.223 Intake: IV 2699.99 Amiodarone 360 mg In 99.99 Dextrose 5% in Water 200 ml @ 1 MG/MIN 33.333 mls/ hr IV .Q6H ONE Rx#: [id number] Dextrose 5% in Water 100 100 ml @ 618 mls/hr IV .Q10M ONE with Amiodarone 150 mg Rx#:[id number] Sodium Chloride 0.9% 1, 500 000 ml @ 100 mls/hr IV . Q10H [facility] Rx#:[id number] Sodium Chloride 0.9% 1, 2000 000 ml @ 999 mls/hr IV . Q1H1M ONE Rx#:[id number] Intake, IV Titration 11.233 Amount Norepinephrine 4 mg In 11.233 Sodium Chloride 0.9% 250 ml @ 0.03 MCG/KG/MIN 13. 48 mls/hr IV .[id number] [facility] Rx#:[id number] Oral 650 Output: Urine 480 215 Other: Voiding Method Urinal Indwelling Catheter ABP, PAP, CO, CI - Last 8 Hours Arterial Blood Pressure 98/61 Arterial Blood Pressure 105/62 Arterial Blood Pressure 95/57 Arterial Blood Pressure 89/56 Arterial Blood Pressure 114/67 Arterial Blood Pressure 91/53 Arterial Blood Pressure 98/59 Arterial Blood Pressure 92/59 Arterial Blood Pressure 108/64 Arterial Blood Pressure 118/48 General appearance the patient is lethargic, weak, seems to be quite debilitated. No significant respiratory distress and the patient is currently on oxygen by nasal cannula at 6 L Head exam was generally normal. There was no scleral icterus or corneal arcus. Mucous membranes were moist. Neck was supple and without jugular venous distension, thyromegaly, or carotid bruits. Carotids were easily palpable bilaterally. There was no adenopathy. Lung sounds are diminished bilaterally specially lung bases Heart sounds are irregular, tachycardic, positive S1-S2. No significant murmurs could be appreciated and the overall heart sounds are distant. Abdominal exam revealed normal bowel sounds. The abdomen was soft, non-tender, and without masses, organomegaly, or appreciable enlargement of the abdominal aorta. Scars of previous abdominal surgery over the left lateral abdominal wall. Examination of the extremities diminished pulses in all 4 extremities. There was no cyanosis, clubbing or edema. Examination of the skin revealed no evidence of significant rashes, suspicious appearing nevi or other concerning lesions. Neurologically, lethargic. Awake and alert and moving all 4 extremities without limitation Results - Laboratory Findings CBC and BMP: 06/21/23 08:37 06/21/23 08:37 PT/INR, D-dimer PT 12.2 sec (10.0-12.5) 06/21/23 10:28 INR 1.1 (<1.2) 06/21/23 10:28 Abnormal lab findings: Abnormal Labs 06/19/23 06/20/23 06/21/23 12:53 08:08 02:59 WBC 1.9 L MCV 101.6 H Plt Count Neutrophils # (Manual) Lymphocytes # 0.4 L Lymphocytes # (Manual) Metamyelocytes # (Man) Myelocytes # (Manual) Sodium 134 L Chloride Carbon Dioxide 20 L BUN 24 H Creatinine 1.35 H Glucose 175 H POC Glucose (mg/dL) 118 H Phosphorus Total Bilirubin Alkaline Phosphatase 179 H Troponin I C-Reactive Protein Total Protein Albumin Urine Protein Urine Glucose (UA) Urine Blood Ur Leukocyte Esterase Urine RBC Urine WBC Urine Bacteria Urine Mucus 06/21/23 06/21/23 06/21/23 06:52 07:10 08:07 WBC MCV Plt Count Neutrophils # (Manual) Lymphocytes # Lymphocytes # (Manual) Metamyelocytes # (Man) Myelocytes # (Manual) Sodium Chloride Carbon Dioxide BUN Creatinine Glucose POC Glucose (mg/dL) 117 H 122 H Phosphorus Total Bilirubin Alkaline Phosphatase Troponin I C-Reactive Protein Total Protein Albumin Urine Protein Trace H Urine Glucose (UA) 4+ H Urine Blood Large H Ur Leukocyte Esterase Moderate H Urine RBC >182 H Urine WBC 23 H Urine Bacteria Rare H Urine Mucus Rare H 06/21/23 06/21/23 06/21/23 08:37 08:37 10:28 WBC MCV 102.3 H Plt Count 148 L Neutrophils # (Manual) 8.70 H Lymphocytes # Lymphocytes # (Manual) 0.38 L Metamyelocytes # (Man) 0.09 H Myelocytes # (Manual) 0.09 H Sodium Chloride 109 H Carbon Dioxide 18 L BUN 29 H Creatinine 2.33 H Glucose POC Glucose (mg/dL) Phosphorus 1.6 L Total Bilirubin 1.8 H Alkaline Phosphatase 146 H Troponin I 0.169 H* C-Reactive Protein Total Protein 5.6 L Albumin 3.0 L Urine Protein Urine Glucose (UA) Urine Blood Ur Leukocyte Esterase Urine RBC Urine WBC Urine Bacteria Urine Mucus 06/21/23 10:28 WBC MCV Plt Count Neutrophils # (Manual) Lymphocytes # Lymphocytes # (Manual) Metamyelocytes # (Man) Myelocytes # (Manual) Sodium Chloride Carbon Dioxide BUN Creatinine Glucose POC Glucose (mg/dL) Phosphorus Total Bilirubin Alkaline Phosphatase Troponin I C-Reactive Protein 6.4 H Total Protein Albumin Urine Protein Urine Glucose (UA) Urine Blood Ur Leukocyte Esterase Urine RBC Urine WBC Urine Bacteria Urine Mucus Assessment and Plan Plan: Assessment 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 Please refer to the CAT scan of the abdomen and the MRI of the spine that showed a pathologic fracture at the level of T10 with replacement of the T10 vertebral body and to lesser extent involvement of the T9 vertebral body with a soft tissue mass and the mass was also extending into the superior aspect of the T11 vertebral body. No evidence of any cord compression at this point in time. Neurologically, the patient is able to move his lower extremities without any limitation. Metastatic cancer with bilateral pulmonary nodules. Chest x-ray shows left hilar fullness. The patient is a lifetime non-smoker. Exact origin of the primary malignancy is not established at this point in time Acute hypotension, not responsive to IV fluids under investigation. Could be septic. Less likely to be neurologic in nature. The patient did have some troponin leak along with elevated proBNP level and increased pulmonary vascular markings and underlying CHF/cardiogenic heart failure cannot be completely ruled out Acute hypoxic respiratory failure currently in 6s of O2 nasal cannula CHF, clinically suspected, awaiting an echocardiogram. proBNP level is elevated along with increased pulm vascular markings bilaterally and cardiomegaly Atrial fibrillation with RVR, centimeter on drip Abnormal troponins, no ST segment elevation or depression. The patient is free of any chest pain at this point in time. Acute kidney injury, consider ATN secondary to hypotension. Rivera catheter in place and the patient is producing adequate amount of urine output. Ultrasound of the kidneys shows no evidence of an hydronephrosis. 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 Continue bicarb infusion and to resuscitate the patient with norepinephrine to maintain mean artery pressure above 65. Monitor renal function. The patient has noted to be given 2 L of IV fluid and currently is on a bicarb infusion and IV Rocephin as an empiric antibiotic coverage. Awaiting an echocardiogram. Stop ESSENCE inhibitor's. Continue amiodarone for rate control regarding his atrial fibrillation. No anticoagulants has been offered at this point. Echocardiogram Hold ESSENCE inhibitors Will establish lines. I was able to obtain a arterial line in the femoral artery. The patient has significant peripheral vascular disease and has been a difficult access. Case was discussed with the spine surgery. The ultimate plan is to stabilize the patient and transfer him to [facility]. He does have an unstable spine that needs further intervention. The primary source of the malignancy is not known at this point in time. Would benefit from a CAT scan of the chest at the later stage to evaluate the entire lung and look for any source of malignancy in his chest. Condition is critical and the patient will be kept here in the ICU for further monitoring. Time with Patient: Greater than 30
--- NOTE | 2023-06-21 15:59 | P.PCN ---
Date of Procedure: 06/21/23 Preoperative Diagnosis: Hypotension/shock Postoperative Diagnosis: same Procedure(s) Performed: arterial line Anesthesia: local Surgeon: Lokesh Mclean Pathology: none sent Condition: critical Disposition: ICU Operative Findings: Indication: Hemodynamic monitoring. A time-out was completed verifying correct patient, procedure, site, positioning, and implant(s) or special equipment if applicable. The patients right groin groin was prepped and draped in sterile fashion. 1% Lidocaine was used to anesthetize the area. An 18G Arrow arterial line was introduced into the right femoral artery. The catheter was threaded over the guide wire and the needle was removed with appropriate pulsatile blood return. Blood loss was minimal. The catheter was then sutured in place to the skin and a sterile dressing applied. Perfusion to the extremity distal to the point of catheter insertion was checked and found to be adequate. The patient tolerated the procedure well and there were no complications.
[2023-06-21] MEDS: ACETAMINOPHEN TAB 325 MG TAB PO PRN (16:04)
[2023-06-21] MEDS: DEXTROSE 5% IN WATER 1,000 ML with SODIUM BICARB (1 MEQ/ML) 150 ML IV SCH (16:17)
[2023-06-21] MEDS: AMIODARONE 450 MG in DEXTROSE 5% IN WATER 250 ML IV SCH (16:37)
--- NOTE | 2023-06-21 17:23 | P.CRDCN ---
History of Present Illness Consult date: 06/21/23 Chief complaint: Abdominal discomfort History of present illness: This is a 72-year-old gentleman who follows with a heel seater in [place] area with a past medical history significant for hypertension and dyslipidemia and chronic kidney disease and history of infrarenal abdominal aortic aneurysm status post multiple procedures one of them was performed at the [facility]. Initially the patient was admitted to the hospital after he presented to the emergency department complaining of abdominal discomfort with no nausea or vomiting and no fever or chills. The discomfort started few days ago. Further investigation performed including CT scan and that revealed pathologic fracture of T10 suspicious for possible metastasis likely coming from the lung. The patient was admitted initially to the floor. Subsequently he developed he maturia and low blood pressure. He was subsequently transferred to the intensive care unit where he was placed on norepinephrine and continues to be maintaining on norepinephrine to support his blood pressure. He also was found to be in acute renal failure. We consulted to see the patient because of an episode of atrial fibrillation. The patient currently is in normal sinus mechanism. Episode of atrial fibrillation lasted for few hours only. He was started on amiodarone and subsequently converted to normal sinus mechanism. According to the patient and his family no history of atrial fibrillation before. No coronary artery disease or congestive heart failure or any history of cardiac arrhythmia. Beside that her troponin was checked and came in to be slightly abnormal. Will follow-up with the serial cardiac enzymes. An echocardiogram was ordered but still pending at this point. The examination is remarkable for distant heart sounds with systolic murmur and clear breathing roland nds bilaterally and mild bilateral lower extremities edema noted Assessment Possible metastatic cancer of unknown origin could be coming from the lungs Acute on chronic renal failure Hypotension of unknown etiology requiring vasopressors Atrial fibrillation, new, currently the patient is in normal sinus mechanism History of infrarenal abdominal aortic aneurysm Multiple comorbid conditions Evidence of myocardial injury Plan I would avoid anticoagulation giving the history of hematuria recently Continue amiodarone IV and switch the patient to oral amiodarone Avoid any AV zohra jermaine agents beside the amiodarone at this point Follow-up with the serial cardiac enzymes Follow-up with the echo for more risk stratification Follow-up with the patient Past Medical History Past Medical History: Diabetes Mellitus, Hypertension Additional Past Medical History / Comment(s): AAA - 2009 History of Any Multi-Drug Resistant Organisms: None Reported Additional Past Surgical History / Comment(s): Aortic aneurysm repair Past Anesthesia/Blood Transfusion Reactions: No Reported Reaction Past Psychological History: No Psychological Hx Reported Smoking Status: Never smoker Past Alcohol Use History: Rare Past Drug Use History: None Reported Medications and Allergies Home Medications Medication Instructions Recorded Confirmed Type Ascorbic Acid [Vitamin C] 1,000 mg PO DAILY 06/19/23 06/19/23 History Aspirin EC [Ecotrin Low Dose] 81 mg PO HS 06/19/23 06/19/23 History Atorvastatin Calcium [Lipitor] 80 mg PO 06/19/23 06/19/23 History Cholecalciferol [Vitamin D3 (25 25 mcg PO DAILY@1200 06/19/23 06/19/23 History Mcg = 1000 Iu)] Dapagliflozin Propanediol [Farxiga] 10 mg PO DAILY@1200 06/19/23 06/19/23 History Ezetimibe [Zetia] 10 mg PO 06/19/23 06/19/23 History Famotidine [Pepcid] 20 mg PO BID 06/19/23 06/19/23 History Fenofibrate Nanocrystallized 48 mg PO DAILY@1200 06/19/23 06/19/23 History [Fenofibrate] Finasteride [Proscar] 5 mg PO DAILY@1200 06/19/23 06/19/23 History Glimepiride [Amaryl] 2 mg PO DAILY@1200 06/19/23 06/19/23 History Losartan [Cozaar] 25 mg PO 06/19/23 06/19/23 History Metoprolol Tartrate [Lopressor] 100 mg PO BID 06/19/23 06/19/23 History Mv-Min/Folic/K1/Lycopen/Lutein 1 tab PO DAILY@1200 06/19/23 06/19/23 History [Centrum Silver Men Tablet] [place]-3/Dha/Epa/Fish Oil [Fish Oil 1 cap PO DAILY 06/19/23 06/19/23 History 1,000 mg Softgel] cilostazoL 100 mg PO DAILY 06/19/23 06/19/23 History hydrALAZINE HCL [Apresoline] 10 mg PO TID 06/19/23 06/19/23 History Allergies Allergy/AdvReac Type Severity Reaction Status Date / Time Sulfa (Sulfonamide Allergy Rash/Hives Verified 06/19/23 16:19 Antibiotics) Physical Exam Vitals: Vital Signs Temp Pulse Pulse Resp BP BP Pulse Ox 06/21/23 16:00 100.0 F H 96 21 94 L 06/21/23 15:45 97 24 91 L 06/21/23 15:30 98 22 92 L 06/21/23 15:15 92 23 95 06/21/23 15:00 124 H 23 104/59 92 L 06/21/23 14:45 113 H 21 94 L 06/21/23 14:30 114 H 27 H 94 L 06/21/23 14:15 106 H 18 93 L 06/21/23 14:00 115 H 17 86/57 95 06/21/23 13:45 110 H 18 95 06/21/23 13:30 113 H 22 95 06/21/23 13:15 109 H 28 H 86/57 94 L 06/21/23 13:00 131 H 22 94 L 06/21/23 12:45 113 H 23 94 L 06/21/23 12:30 122 H 19 103/67 95 06/21/23 12:15 117 H 22 81/62 94 L 06/21/23 12:00 100.4 F H 110 H 22 99/58 92 L 06/21/23 11:45 114 H 21 72/61 95 06/21/23 11:30 128 H 17 80/53 94 L 06/21/23 11:15 130 H 11 L 97/64 93 L 06/21/23 11:00 129 H 25 H 122/77 94 L 06/21/23 10:45 108 H 22 105/63 93 L 06/21/23 10:30 116 H 22 82/59 95 06/21/23 10:15 121 H 22 77/56 91 L 06/21/23 10:00 129 H 19 72/53 93 L 06/21/23 09:45 125 H 22 78/54 95 06/21/23 09:30 128 H 23 81/54 98 06/21/23 09:15 107 H 16 82/53 90 L 06/21/23 09:00 120 H 21 82/47 84 L 06/21/23 08:45 81 23 82/53 06/21/23 08:30 81 17 81/47 89 L 06/21/23 08:15 80 18 78/49 92 L 06/21/23 08:00 101.7 F H 82 15 81/50 89 L 06/21/23 07:45 83 24 76/50 95 06/21/23 07:30 84 19 70/49 96 06/21/23 07:15 102.6 F H 90 22 65/49 91 L 06/21/23 06:30 100.1 F H 90 21 63/40 92 L 06/21/23 06:00 100.8 F H 95 20 77/41 95 06/21/23 02:43 97.6 F 90 20 164/81 94 L 06/20/23 20:32 98.3 F 62 20 128/74 93 L Intake and Output 06/21/23 06/21/23 06/21/23 06:59 14:59 22:59 Intake Total 650 3294.553 596.097 Output Total 563 544 3134 Balance 170 3059.553 -1053.903 Intake: IV 3283.32 353.33 Amiodarone 360 mg In 133.32 66.66 Dextrose 5% in Water 200 ml @ 1 MG/MIN 33.333 mls/ hr IV .Q6H ONE Rx#: [id number] Amiodarone 450 mg In 16.67 Dextrose 5% in Water 250 ml @ 0.5 MG/MIN 16.667 mls/hr IV .Q15H [facility] Rx#: [id number] Dextrose 5% in Water 1, 70 000 ml @ 70 mls/hr IV . [id number] [facility]O with Sodium Bicarb (1 Meq/ml) 150 ml Rx#:[id number] Dextrose 5% in Water 100 100 ml @ 618 mls/hr IV .Q10M ONE with Amiodarone 150 mg Rx#:[id number] Magnesium Sulfate-D5w Pmx 100 1 gm In Dextrose/Water 1 100ml.bag @ 100 mls/hr IVPB ONCE ONE Rx#: [id number] Sodium Chloride 0.9% 1, 600 200 000 ml @ 100 mls/hr IV . Q10H [facility]ANO Rx#:[id number] Sodium Chloride 0.9% 1, 2000 000 ml @ 999 mls/hr IV . Q1H1M ONE Rx#:[id number] Sodium Phosphate 30 mmol 250 In Dextrose 5% in Water 250 ml @ 65 mls/hr IVPB ONCE ONE Rx#:[id number] cefTRIAXone 1 gm In 100 Sodium Chloride 0.9% 50 ml @ 100 mls/hr IVPB ONCE STA Rx#:[id number] Intake, IV Titration 11.233 242.767 Amount Norepinephrine 4 mg In 242.767 Sodium Chloride 0.9% 250 ml @ 0.03 MCG/KG/MIN 13. 48 mls/hr IV .[id number] [facility] Rx#:[id number] Oral 650 Output: Urine 402 327 4426 Other: Voiding Method Urinal Indwelling Catheter ABP, PAP, CO, CI - Last 8 Hours Arterial Blood Pressure 120/80 Arterial Blood Pressure 109/66 Arterial Blood Pressure 102/61 Arterial Blood Pressure 106/62 Arterial Blood Pressure 114/65 Arterial Blood Pressure 99/60 Arterial Blood Pressure 119/67 Arterial Blood Pressure 103/62 Arterial Blood Pressure 112/68 Arterial Blood Pressure 104/64 Arterial Blood Pressure 70/65 Arterial Blood Pressure 98/61 Arterial Blood Pressure 105/62 Arterial Blood Pressure 95/57 Arterial Blood Pressure 89/56 Arterial Blood Pressure 114/67 Arterial Blood Pressure 91/53 Arterial Blood Pressure 98/59 Arterial Blood Pressure 92/59 Arterial Blood Pressure 108/64 Arterial Blood Pressure 118/48 Results 06/21/23 08:37 06/21/23 08:37 Cardiac Enzymes 06/21/23 06/21/23 Range/Units 08:37 10:28 AST 38 (17-59) U/L CK-MB (CK-2) Not Reportable Troponin I 0.169 H* (0.000-0.034) ng/mL Coagulation 06/21/23 Range/Units 10:28 PT 12.2 (10.0-12.5) sec APTT 26.7 (22.0-30.0) sec CBC 06/21/23 06/21/23 Range/Units 02:59 08:37 WBC 1.9 L 9.4 (3.8-10.6) k/uL RBC 4.80 4.36 (4.30-5.90) m/uL Hgb 16.2 14.4 (13.0-17.5) gm/dL Hct 48.8 44.6 (39.0-53.0) % Plt Count 163 148 L (150-450) k/uL Comprehensive Metabolic Panel 06/21/23 Range/Units 08:37 Sodium 137 (137-145) mmol/L Potassium 3.9 (3.5-5.1) mmol/L Chloride 109 H (98-107) mmol/L Carbon Dioxide 18 L (22-30) mmol/L BUN 29 H (9-20) mg/dL Creatinine 2.33 H (0.66-1.25) mg/dL Glucose 96 (74-99) mg/dL Calcium 8.7 (8.4-10.2) mg/dL AST 38 (17-59) U/L ALT 22 (4-49) U/L Alkaline Phosphatase 146 H (38-126) U/L Total Protein 5.6 L (6.3-8.2) g/dL Albumin 3.0 L (3.5-5.0) g/dL Current Medications Generic Name Dose Route Start Last Admin Trade Name Freq PRN Reason Stop Dose Admin Acetaminophen 650 mg 06/19/23 15:39 06/21/23 16:04 Acetaminophen Tab 325 Mg Tab PO 650 mg Q6HR PRN Administration Mild Pain or Fever > 100.5 Aspirin 81 mg 06/20/23 21:00 06/20/23 21:42 Aspirin 81 Mg PO 81 mg HS SILVIANO Administration Atorvastatin Calcium 80 mg 06/20/23 21:00 06/20/23 21:41 Atorvastatin 80 Mg Tab PO 80 mg HS SILVIANO Administration Cholecalciferol 25 mcg 06/20/23 12:00 06/21/23 13:50 Cholecalciferol 25 Mcg (1000 Iu) Tablet PO 25 mcg DAILY@1200 SILVIANO Administration Dapagliflozin 10 mg 06/20/23 12:00 06/21/23 14:21 Dapagliflozin Propanediol 10 Mg Tablet PO 10 mg DAILY@1200 SIL[facility]ANO Administration Ezetimibe 10 mg 06/20/23 21:00 06/20/23 21:41 Ezetimibe 10 Mg Tab PO 10 mg HS SILVIANO Administration Famotidine 20 mg 06/22/23 09:00 Famotidine 20 Mg Tab PO DAILY SILVIANO Fenofibrate 54 mg 06/20/23 12:00 06/21/23 14:21 Fenofibrate 54 Mg Tab PO 54 mg DAILY@1200 SILVIANO Administration Finasteride 5 mg 06/20/23 12:00 06/21/23 14:21 Finasteride 5 Mg Tab PO 5 mg DAILY@1200 SILVIANO Administration Heparin Sodium (Porcine) 5,000 unit 06/20/23 09:00 06/21/23 13:50 Heparin Sodium,Porcine 5,000 Unit/Ml 1 Ml Vial SQ 5,000 unit Q12HR SILVIANO Administration Norepinephrine Bitartrate 4 mg 254 mls @ 13.48 mls/hr 06/21/23 10:00 06/21/23 16:14 / Sodium Chloride IV Infused .[id number] SIL[facility]O Titration Protocol 0.03 MCG/KG/MIN Amiodarone HCl 450 mg/ 250 mls @ 16.667 mls/hr 06/21/23 16:00 06/21/23 16:37 Dextrose/Water IV 06/22/23 09:59 0.5 mg/min .Q15H SIL[facility]O 16.667 mls/hr Administration Protocol 0.5 MG/MIN Ceftriaxone Sodium 2 gm/ 50 mls @ 100 mls/hr 06/22/23 08:00 Sodium Chloride IVPB Q24H [facility]O Protocol Sodium Bicarbonate 150 ml/ 1,150 mls @ 70 mls/hr 06/21/23 13:15 06/21/23 16:17 Dextrose/Water IV 70 mls/hr .[id number] S[facility]ANO Administration Sodium Phosphate 30 mmol/ 260 mls @ 65 mls/hr 06/21/23 13:30 06/21/23 13:50 Dextrose/Water IVPB 06/21/23 17:29 65 mls/hr ONCE ONE Administration Protocol Miscellaneous Information 1 each 06/21/23 13:16 Potassium Replacement Protocol 1 Each [facility] [place] DA[place] PRN Per Protocol Protocol Miscellaneous Information 1 each 06/21/23 13:16 Phosphorus Replacement Protoco 1 Each Mis MISCELLANE DAILY PRN Per Protocol Protocol Miscellaneous Information 1 each 06/21/23 13:18 Magnesium Replacement Protocol 1 Each Misc MISCELLANE DAILY PRN Per Protocol Protocol Morphine Sulfate 4 mg 06/19/23 15:39 06/21/23 01:39 Morphine Sulfate 4 Mg/Ml Syringe IV 4 mg Q4HR PRN Administration Severe Pain (Scale 7 to 10) Naloxone HCl 0.2 mg 06/19/23 15:39 Naloxone 0.4 Mg/Ml 1 Ml Vial IV Q2M PRN Opioid Reversal Ondansetron HCl 4 mg 06/19/23 15:39 06/20/23 09:00 Ondansetron 4 Mg/2 Ml Vial IVP 4 mg Q8HR PRN Administration Nausea And Vomiting Intake and Output 06/21/23 06/21/23 06/21/23 06:59 14:59 22:59 Intake Total 650 3294.553 596.097 Output Total 211 962 7187 Balance 170 3059.553 -1053.903 Intake: IV 3283.32 353.33 Amiodarone 360 mg In 133.32 66.66 Dextrose 5% in Water 200 ml @ 1 MG/MIN 33.333 mls/ hr IV .Q6H ONE Rx#: [id number] Amiodarone 450 mg In 16.67 Dextrose 5% in Water 250 ml @ 0.5 MG/MIN 16.667 mls/hr IV .Q15H [facility] Rx#: [id number] Dextrose 5% in Water 1, 70 000 ml @ 70 mls/hr IV . [id number] [facility] with Sodium Bicarb (1 Meq/ml) 150 ml Rx#:[id number] Dextrose 5% in Water 100 100 ml @ 618 mls/hr IV .Q10M ONE with Amiodarone 150 mg Rx#:[id number] Magnesium Sulfate-D5w Pmx 100 1 gm In Dextrose/Water 1 100ml.bag @ 100 mls/hr IVPB ONCE ONE Rx#: [id number] Sodium Chloride 0.9% 1, 600 200 000 ml @ 100 mls/hr IV . Q10H [facility] Rx#:[id number] Sodium Chloride 0.9% 1, 2000 000 ml @ 999 mls/hr IV . Q1H1M ONE Rx#:[id number] Sodium Phosphate 30 mmol 250 In Dextrose 5% in Water 250 ml @ 65 mls/hr IVPB ONCE ONE Rx#:[id number] cefTRIAXone 1 gm In 100 Sodium Chloride 0.9% 50 ml @ 100 mls/hr IVPB ONCE STA Rx#:[id number] Intake, IV Titration 11.233 242.767 Amount Norepinephrine 4 mg In 11.233 242.767 Sodium Chloride 0.9% 250 ml @ 0.03 MCG/KG/MIN 13. 48 mls/hr IV .[id number] [facility] Rx#:[id number] Oral 650 Output: Urine 939 403 7079 Other: Voiding Method Urinal Indwelling Catheter 06/21/23 08:37 06/21/23 08:37
[2023-06-21] MEDS: MELATONIN 3 MG TABLET PO PRN (20:56)
[2023-06-21] MEDS: QUEtiapine 25 MG TAB PO PRN (23:20)
[2023-06-22] MEDS: LORazepam 2 MG/ML INJ IV STA (01:31)
[2023-06-22 04:07] LABS: HCT 37.7 % (39.0-53.0); HGB 12.8 gm/dL (13.0-17.5); MCH 33.7 pg (25.0-35.0); MCHC 33.9 g/dL (31.0-37.0); MCV 99.6 fL (80.0-100.0); Mean Platelet Volume 8.6; Platelet Count 139 k/uL (150-450); RBC 3.79 m/uL (4.30-5.90); RDW 12.2 % (11.5-15.5); WBC 25.6 k/uL (3.8-10.6)
[2023-06-22 04:25] LABS: African American GFR (CKD) 35 (>60 ml/min/1.73 sqM); Anion Gap 5 mmol/L; Blood Urea Nitrogen 33 mg/dL (9-20); Calcium 7.8 mg/dL (8.4-10.2); Carbon Dioxide 24 mmol/L (22-30); Chloride 105 mmol/L (98-107); Glucose 198 mg/dL (74-99); Magnesium 1.7 mg/dL (1.6-2.3); Non-African American GFR(CKD) 30 (>60 ml/min/1.73 sqM); Potassium 4.1 mmol/L (3.5-5.1); Sodium 134 mmol/L (137-145)
[2023-06-22 04:33] LABS: Band Neutrophils % 50 %; Lymphocytes # (M) 0.77 k/uL (1.0-4.8); Metamyelocytes # (M) 0.77 k/uL (0); Metamyelocytes % 3 %; Monocytes # (M) 0.51 k/uL (0-1.0); Neutrophils % (M) 42 %; Nucleated Red Blood Cells 0 /100 WBC (0-0); Total Cells Counted 200
[2023-06-22 04:34] LABS: Toxic Granulation Present; Toxic Vacuolation Present
--- NOTE | 2023-06-22 09:36 | XR ---
EXAMINATION TYPE: XR chest 1V DATE OF EXAM: 06/22/2023 COMPARISON: 06/21/2023 HISTORY: 72-year-old male vascular congestion TECHNIQUE: Single frontal view of the chest is obtained. FINDINGS: Heart is borderline enlarged. Diffuse interstitial and perihilar densities persist. No siz able pleural effusion or desiree consolidation. IMPRESSION: Ongoing CHF with similar pulmonary vascular congestion.
[2023-06-22] MEDS: AMIODARONE 200 MG TAB PO SCH (09:39)
[2023-06-22] MEDS: FAMOTIDINE 20 MG TAB PO SCH (09:39)
[2023-06-22] MEDS: SODIUM CHLORIDE 0.9% 1,000 ML IV SCH (09:41)
--- NOTE | 2023-06-22 10:10 | CA ---
Transthoracic Echo Report Name: Dennis Estrada Age: 72 Gender: M : 1950 Exam Date: 06/22/2023 07:43 Exam Location: [facility] Ht (in): 72 Wt (lb): 260 Ordering Physician: Lokesh Mclean MD Attending/Referring Phys: [employer] Analia Stone RDCS Procedure CPT: Indications: EF Cardiac Hx: Technical Quality: Technically difficult study Contrast 1: Lumason Total Dose (mL): 2 Contrast 2: Total Dose (mL): MEASUREMENTS (Male / Female) Normal Values 2D ECHO LV Diastolic Diameter PLAX 4.7 cm 4.2 - 5.9 / 3.9 - 5.3 cm LV Systolic Diameter PLAX 3.4 cm IVS Diastolic Thickness 1.5 cm 0.6 - 1.0 / 0.6 - 0.9 cm LVPW Diastolic Thickness 1.1 cm 0.6 - 1.0 / 0.6 - 0.9 cm LV Relative Wall Thickness 0.5 RV Internal Dim ED PLAX 3.2 cm LA Volume 84.2 cm??? 18 - 58 / 22 - 52 cm??? LA Volume Index 33.9 cm???/m??? 16 - 28 cm???/m??? M-MODE Aortic Root Diameter MM 3.8 cm LA Systolic Diameter MM 4.3 cm LA Ao Ratio MM 1.1 AV Cusp Separation MM 2.3 cm DOPPLER AV Peak Velocity 132.8 cm/s AV Peak Gradient 7.1 mmHg AV Mean Velocity 95.7 cm/s AV Mean Gradient 4.0 mmHg AV Velocity Time Integral 21.5 cm LVOT Peak Velocity 95.6 cm/s LVOT Peak Gradient 3.7 mmHg LVOT Velocity Time Integral 16.2 cm MV Area PHT 2.9 cm??? Mitral E Point Velocity 82.7 cm/s Mitral A Point Velocity 53.8 cm/s Mitral E to A Ratio 1.5 MV Deceleration Time 263.6 ms MV E' Velocity 10.2 cm/s Mitral E to MV E' Ratio 8.1 TR Peak Velocity 301.4 cm/s TR Peak Gradient 36.3 mmHg Right Ventricular Systolic Press 41.3 mmHg FINDINGS Left Ventricle Moderately increased left ventricular wall thickness. Left ventricular cavity size normal. Normal left ventricular systolic function with no obvious regional wall motion abnormalities. Left ventricular ejection fraction is estimated at 55-60 %. Right Ventricle Normal right ventricular size and function. Right Atrium Normal right atrial size. Left Atrium Mildly increased left atrial volume. Mildly increased left atrial area. Mitral Valve Structurally normal mitral valve. No mitral stenosis, regurgitation or prolapse. Aortic Valve No aortic valve stenosis or regurgitation. Tricuspid Valve Structurally normal tricuspid valve. Mild tricuspid regurgitation. Pulmonic Valve Structurally normal pulmonic valve. Pericardium No pericardial effusion. Aorta Normal size aortic root and proximal ascending aorta. CONCLUSIONS Normal LV systolic function Previewed by: Dr. Edenilson Tran MD (Electronically Signed) Final Date: 22 June 2023 10:09
--- NOTE | 2023-06-22 10:59 | P.PN ---
Subjective Patient is seen for follow-up for acute kidney injury mostly associated with hypotension and hemodynamic instability with A. fib with RVR. Urine output has improved to about 100-200 mL per hour. Blood pressure is improved and patient is almost off of levo fed Maintained on IV bicarb. Plans for possible transfer to [place] from orthopedic standpoint. Objective - Vital Signs Vital signs: Vital Signs Temp 98.1 F 06/22/23 08:00 Pulse 82 06/22/23 10:00 Resp 22 06/22/23 10:00 BP 150/67 06/22/23 08:45 Pulse Ox 94 L 06/22/23 10:00 FiO2 Intake & Output 06/21/23 06/22/23 06/22/23 18:59 06:59 18:59 Intake Total 4075.424 1317.848 564 Output Total 2160 1985 795 Balance 1915.424 -667.152 -231 Weight 120.8 kg Intake: IV 3723.32 926.67 210 Amiodarone 360 mg In 199.98 Dextrose 5% in Water 200 ml @ 1 MG/MIN 33.333 mls/ hr IV .Q6H ONE Rx#: [id number] Amiodarone 450 mg In 33.34 16.67 Dextrose 5% in Water 250 ml @ 0.5 MG/MIN 16.667 mls/hr IV .Q15H [facility] Rx#: [id number] Dextrose 5% in Water 1, 140 910 210 000 ml @ 70 mls/hr IV . [id number] [facility] with Sodium Bicarb (1 Meq/ml) 150 ml Rx#:[id number] Dextrose 5% in Water 100 100 ml @ 618 mls/hr IV .Q10M ONE with Amiodarone 150 mg Rx#:[id number] Magnesium Sulfate-D5w Pmx 100 1 gm In Dextrose/Water 1 100ml.bag @ 100 mls/hr IVPB ONCE ONE Rx#: [id number] Sodium Chloride 0.9% 1, 800 000 ml @ 100 mls/hr IV . Q10H [facility] Rx#:[id number] Sodium Chloride 0.9% 1, 2000 000 ml @ 999 mls/hr IV . Q1H1M ONE Rx#:[id number] Sodium Phosphate 30 mmol 250 In Dextrose 5% in Water 250 ml @ 65 mls/hr IVPB ONCE ONE Rx#:[id number] cefTRIAXone 1 gm In 100 Sodium Chloride 0.9% 50 ml @ 100 mls/hr IVPB ONCE STA Rx#:[id number] Intake, IV Titration 352.104 391.178 254 Amount Amiodarone 450 mg In 235.282 Dextrose 5% in Water 250 ml @ 0.5 MG/MIN 16.667 mls/hr IV .Q15H [facility] Rx#: [id number] Norepinephrine 4 mg In 352.104 155.896 254 Sodium Chloride 0.9% 250 ml @ 0.03 MCG/KG/MIN 13. 48 mls/hr IV .[id number] [facility] Rx#:[id number] Oral 100 Output: Urine 2160 1985 795 Other: Voiding Method Indwelling Catheter Indwelling Catheter ABP, PAP, CO, CI - Last Documented Arterial Blood Pressure 107/55 - Exam Patient is awake, comfortable, no acute distress Examination of the heart S1 and S2 Examination of the lungs bilateral breath sounds are heard Abdomen is soft nontender Examination of lower extremities shows no significant edema [employer] exam grossly intact - Labs CBC & Chem 7: 06/22/23 03:50 06/22/23 03:50 Labs: Abnormal Lab Results - Last 24 Hours (Table) 06/21/23 06/21/23 06/21/23 Range/Units 10:28 10:28 17:40 WBC (3.8-10.6) k/uL RBC (4.30-5.90) m/uL Hgb (13.0-17.5) gm/dL Hct (39.0-53.0) % Plt Count (150-450) k/uL Neutrophils # (Manual) (1.3-7.7) k/uL Lymphocytes # (Manual) (1.0-4.8) k/uL Metamyelocytes # (Man) (0) k/uL Sodium (137-145) mmol/L BUN (9-20) mg/dL Creatinine (0.66-1.25) mg/dL Glucose (74-99) mg/dL Calcium (8.4-10.2) mg/dL Troponin I 0.169 H* 0.092 H* (0.000-0.034) ng/mL C-Reactive Protein 6.4 H (<1.0) mg/dL 06/22/23 06/22/2324 Range/Units 00:15 03:50 03:50 WBC 25.6 H (3.8-10.6) k/uL RBC 3.79 L (4.30-5.90) m/uL Hgb 12.8 L (13.0-17.5) gm/dL Hct 37.7 L (39.0-53.0) % Plt Count 139 L (150-450) k/uL Neutrophils # (Manual) 23.50 H (1.3-7.7) k/uL Lymphocytes # (Manual) 0.77 L (1.0-4.8) k/uL Metamyelocytes # (Man) 0.77 H (0) k/uL Sodium 134 L (137-145) mmol/L BUN 33 H (9-20) mg/dL Creatinine 2.11 H (0.66-1.25) mg/dL Glucose 198 H (74-99) mg/dL Calcium 7.8 L (8.4-10.2) mg/dL Troponin I 0.061 H* (0.000-0.034) ng/mL C-Reactive Protein (<1.0) mg/dL Microbiology - Last 24 Hours (Table) 06/21/23 08:07 Urine Culture - Preliminary Urine,Catheterized Gram Neg Bacilli Assessment and Plan Assessment: 1. Acute kidney injury ATN currently oliguric secondary to hypotension and A. fib. Angiotensin receptor blockers currently on hold. No evidence of obstruction on CT of the abdomen. currently maintained on IV fluids. UA shows RBCs more than 182 WBCs 23 with trace protein. Currently with indwelling Rivera catheter 2. A. fib with RVR 3. Pathology occult fracture in T10 with multiple scattered pulmonary nodules suggestive of metastatic process 4. History of BPH maintained on Proscar 5. Type 2 diabetes maintained on S GLT2i 6. Pyuria rule out UTI Plan: Switch to normal saline continue off of losartan Antiarrhythmic medications as per cardiology. Continue with empiric antibiotics. Urine culture is pending
[2023-06-22] MEDS: MAGNESIUM SULFATE-D5W PMX 1 GM in DEXTROSE/WATER 1 100ML.BAG IVPB SCH (12:24)
--- NOTE | 2023-06-22 14:51 | P.PN ---
Subjective Progress Note Date: 06/22/23 Principal diagnosis: Acute pathological fracture of T10 vertebral spine This is a 72-year-old male patient was transferred to the intensive care unit for hypotension and acute kidney injury. The patient is 72 and he presented with pain in his left flank and abdomen of few weeks duration. He was also having some nausea and emesis. He has a primary care physician out of [facility]. He recently relocated to [facility]. CAT scan of the abdomen and pelvis was done on 06/19/2023 and the patient was noted to have a pathologic fracture of the T10 vertebral body in addition to lucent lesion in the T9-T11 vertebra body and fracture of the T10 extending into the posterior elements of the pedicle on the right. There were also scattered bilateral pulmonary nodules highly suggestive of metastatic disease. The patient is not known to have any underlying malignancy. He apparently has been having some bloody urine and currently has a Rivera catheter in place and urine output is nonbloody. He was admitted to the hospital and spine surgery was involved in his care along with medical oncology. MRI of the spine was also done that showed essentially similar findings. The patient has confirmation of a pathologic fracture of the level of T10 vertebral body and complete replacement of the T10 vertebral body and to a lesser extent involvement of the T9 vertebral body with soft tissue mass. The mass extended into the superior aspect of the T11 vertebral body. There is also posterior extension of the tumor into the spinal canal without causing any spinal stenosis or encroachment of the spine. Note that the patient was not having any motor function deficits prior to his admission. He denies having any back pain and he denies having any weakness in lower extremities. Spine surgery has been consulted and based on my conversation with the spine surgeon, the spine itself is felt to be unstable. Subsequently, the patient becomes hypotensive. He was given several bolus of IV fluids on the medical floor and the patient continued to be hypotensive after a total of 2 L and following that he was transferred to the intensive care unit and was started on pressors which is currently running at 0.1 mcg/kg/min. At the same time, the patient has sustained an acute kidney injury. Creatinine is up to 2.3 with a BUN of 29. Sodium levels at 137. The white cell count of 9.4 with a hemoglobin 14.4 and platelet count of 148. Troponin was at 0.169. proBNP level is 4000. UA is showing 23 WBCs and multiple RBCs. Urine output is nonbloody at this point in time. The patient is currently on oxygen at 6 L/min nasal cannula with a pulse ox of 94%. Chest x-ray was done and it showed cardiomegaly with pulm vascular congestion and increased interstitial markings likely secondary to CHF. His baseline LV function is not known and echocardiogram has been ordered. Doppler of the lower extremity was done and it showed no evidence of any DVT. The patient is currently also in atrial fibrillation with rapid ventricular response. The patient was given amiodarone bolus and currently he is on amiodarone drip and rate is under better control. He was given IV Rocephin as an empiric antibiotic coverage. On his blood work, he did have a anion gap metabolic acidosis and he was started on a bicarb infusion at a rate of 75 cc an hour. 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 He has undergone previous abdominal aortic aneurysm repair back in 2009. Patient was reevaluated today on 06/22/2023, patient is on 4 L nasal cannula, he is comfortable, not in distress, has back pain upon movement. Patient is on norepinephrine at 0.05 mcg/kg/min, he is also on amiodarone for atrial fibrillation with RVR, and he is also receiving sodium bicarb. Supposedly the plan initially was to transfer this patient to [facility] for his pathological fractures consistent with malignancy involving the thoracic and lumbar spine, and this is supposedly in progress, however patient may have to change his mind about the transfer, and I would leave it up to the oncologist to decide regarding definitive tissue diagnosis. Patient may require interventional radiology consultation for CT-guided needle biopsy of his compression fractures/mass of T9 and T10 in the meantime continue present supportive care measures, it is almost impossible to get a PET scan during this admission although the patient could have a bone scan, and I will leave it up to oncology to decide chest x-ray today is showing evidence of interstitial edema. WBC count today is 25.6 hemoglobin 12.8 basic metabolic profile is normal BUN is 33 creatinine 2.11. Troponin is high at 0.061, and BNP level is also high over 4000 Objective - Vital Signs Vital signs: Vital Signs Temp 98.0 F 06/22/23 12:00 Pulse 81 06/22/23 14:00 Resp 16 06/22/23 14:00 BP 150/67 06/22/23 13:00 Pulse Ox 91 L 06/22/23 14:00 FiO2 Intake & Output 06/21/23 06/22/23 06/22/23 18:59 06:59 18:59 Intake Total 4075.424 1960.881 7468.740 Output Total 2160 1985 1545 Balance 1915.424 -667.152 -177.260 Weight 120.8 kg Intake: IV 3723.32 926.67 510 Amiodarone 360 mg In 199.98 Dextrose 5% in Water 200 ml @ 1 MG/MIN 33.333 mls/ hr IV .Q6H ONE Rx#: [id number] Amiodarone 450 mg In 33.34 16.67 Dextrose 5% in Water 250 ml @ 0.5 MG/MIN 16.667 mls/hr IV .Q15H SILVIANO Rx#: [id number] Dextrose 5% in Water 1, 140 910 210 000 ml @ 70 mls/hr IV . [id number] SILVIANO with Sodium Bicarb (1 Meq/ml) 150 ml Rx#:[id number] Dextrose 5% in Water 100 100 ml @ 618 mls/hr IV .Q10M ONE with Amiodarone 150 mg Rx#:[id number] Magnesium Sulfate-D5w Pmx 100 1 gm In Dextrose/Water 1 100ml.bag @ 100 mls/hr IVPB ONCE ONE Rx#: [id number] Sodium Chloride 0.9% 1, 800 000 ml @ 100 mls/hr IV . Q10H SILVIANO Rx#:[id number] Sodium Chloride 0.9% 1, 300 000 ml @ 75 mls/hr IV . [id number] SILVIANO Rx#:[id number] Sodium Chloride 0.9% 1, 2000 000 ml @ 999 mls/hr IV . Q1H1M ONE Rx#:[id number] Sodium Phosphate 30 mmol 250 In Dextrose 5% in Water 250 ml @ 65 mls/hr IVPB ONCE ONE Rx#:[id number] cefTRIAXone 1 gm In 100 Sodium Chloride 0.9% 50 ml @ 100 mls/hr IVPB ONCE STA Rx#:[id number] Intake, IV Titration 352.104 391.178 277.740 Amount Amiodarone 450 mg In 235.282 Dextrose 5% in Water 250 ml @ 0.5 MG/MIN 16.667 mls/hr IV .Q15H SILVIANO Rx#: [id number] Norepinephrine 4 mg In 352.104 155.896 277.740 Sodium Chloride 0.9% 250 ml @ 0.03 MCG/KG/MIN 13. 48 mls/hr IV .[id number] SILVIANO Rx#:[id number] Oral 580 Output: Urine 2160 1985 1545 Other: Voiding Method Indwelling Catheter Indwelling Catheter Indwelling Catheter ABP, PAP, CO, CI - Last Documented Arterial Blood Pressure 92/44 - Exam General: Reveals 72-year-old white male in no distress Head: Atraumatic, normocephalic Skin: Skin is warm and dry and no rashes or lesions are noted. Eye: Pupils are equal, round and reactive to light, extra-ocular movements are intact; there is normal conjunctiva bilaterally. Ears, nose, mouth and throat: There are moist mucous membranes and no oral lesions. Neck: The neck is supple, there is no tenderness or JVD. Cardiovascular: Irregularly irregular rhythm, normal S1-S2, no S3 gallop Respiratory: Lear bilaterally no crackles rhonchi or wheezes Gastrointestinal: Soft, non-distended, non-tender abdomen without masses or org anomegaly noted. There is no rebound or guarding present. Bowel sounds are unremarkable. Back: There is no tenderness to palpation in the midline. There is no obvious deformity. Musculoskeletal: Normal ROM, no tenderness, There is no pedal edema. There is no calf tenderness or swelling. No cords were appreciated. Neurological: CN II-XII intact, Cranial nerves III through XII are intact. Ther e are no obvious motor or sensory deficits. Coordination appears grossly intact. Speech is normal. Psychiatric: Cooperative, appropriate mood & affect, normal judgment. - Labs CBC & Chem 7: 06/22/23 03:50 06/22/23 03:50 Labs: Abnormal Lab Results - Last 24 Hours (Table) 06/21/23 06/22/23 06/22/23 Range/Units 17:40 00:15 03:50 WBC (3.8-10.6) k/uL RBC (4.30-5.90) m/uL Hgb (13.0-17.5) gm/dL Hct (39.0-53.0) % Plt Count (150-450) k/uL Neutrophils # (Manual) (1.3-7.7) k/uL Lymphocytes # (Manual) (1.0-4.8) k/uL Metamyelocytes # (Man) (0) k/uL Sodium 134 L (137-145) mmol/L BUN 33 H (9-20) mg/dL Creatinine 2.11 H (0.66-1.25) mg/dL Glucose 198 H (74-99) mg/dL Calcium 7.8 L (8.4-10.2) mg/dL Troponin I 0.092 H* 0.061 H* (0.000-0.034) ng/mL 06/22/23 Range/Units 03:50 WBC 25.6 H (3.8-10.6) k/uL RBC 3.79 L (4.30-5.90) m/uL Hgb 12.8 L (13.0-17.5) gm/dL Hct 37.7 L (39.0-53.0) % Plt Count 139 L (150-450) k/uL Neutrophils # (Manual) 23.50 H (1.3-7.7) k/uL Lymphocytes # (Manual) 0.77 L (1.0-4.8) k/uL Metamyelocytes # (Man) 0.77 H (0) k/uL Sodium (137-145) mmol/L BUN (9-20) mg/dL Creatinine (0.66-1.25) mg/dL Glucose (74-99) mg/dL Calcium (8.4-10.2) mg/dL Troponin I (0.000-0.034) ng/mL Microbiology - Last 24 Hours (Table) 06/21/23 08:07 Urine Culture - Preliminary Urine,Catheterized Gram Neg Bacilli Assessment and Plan Assessment: Impression: Acute pathological fractures of T10 and T9 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 Acute non-ST elevation myocardial infarction Type 2 diabetes History of aortic aneurysm requiring repair in 2010 Peripheral vessel occlusive disease Acute hypotension, most likely cardiogenic in nature and related to atrial fibrillation could also be neurologic in nature, doubt septic nature to his hypotension. Recommendations: Continue to monitor in the ICU Continue oxygen and titrate accordingly Continue amiodarone and heparin Echocardiogram is pending Hold blood pressure medications for now Tissue diagnosis will have to be addressed by oncology consider CT of the chest Consider interventional radiology evaluation for CT-guided needle biopsy of his T9/T10 mass/compression fracture Will continue to follow. Prognosis is relatively poor and guarded. Patient is supposed to be transferred to [facility], however this may be on hold for now Time with Patient: Less than 30
--- NOTE | 2023-06-22 16:17 | P.PN ---
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 Initially the patient was admitted to the hospital after he presented to the emergency department complaining of abdominal discomfort with no nausea or vomiting and no fever or chills. The discomfort started few days ago. Further investigation performed including CT scan and that revealed pathologic fracture of T10 suspicious for possible metastasis likely coming from the lung. The patient was admitted initially to the floor. Subsequently he developed hematuria and low blood pressure. He was subsequently transferred to the intensive care unit where he was placed on norepinephrine and continues to be maintaining on norepinephrine to support his blood pressure. He also was found to be in acute renal failure. We consulted to see the patient because of an episode of atrial fibrillation. The patient currently is in normal sinus mechanism. Episode of atrial fibrillation lasted for few hours only. He was started on amiodarone and subsequently converted to normal sinus mechanism. According to the patient and his family no history of atrial fibrillation before. No coronary artery disease or congestive heart failure or any history of cardiac arrhythmia. Beside that her troponin was checked and came in to be slightly abnormal. Will follow-up with the serial cardiac enzymes. An echocardiogram was ordered but still pending at this point. The examination is remarkable for distant heart sounds with systolic murmur and clear breathing sounds bilaterally and mild bilateral lower extremities edema noted 06/22/2023 Patient was seen and examined at bedside this a.m. Patient continues to be in sinus rhythm today over last 24 hours. Hemodynamically stable. Blood pressure 101 over 56 mmHg. He is off pressors. He is off amiodarone drip. Appears euvolemic with no swelling in bilateral lower extremity On exam Regular rate rhythm, S1-S2 audible, no murmurs appreciated Normal JVD No swelling in bilateral lower extremity Diminished breath sounds at bilateral lung valero with no crackles or rhonchi Assessment Possible metastatic cancer of unknown origin could be coming from the lungs Acute on chronic renal failure Hypotension of unknown etiology requiring vasopressors Atrial fibrillation, new, currently the patient is in normal sinus mechanism History of infrarenal abdominal aortic aneurysm Multiple comorbid conditions Evidence of myocardial injury Echo shows an EF of 50 to 55% with no major valvular abnormality. Plan I would avoid anticoagulation giving the history of hematuria recently, metastasis and pathological fracture of T10 Amiodarone 200 mg p.o. Avoid any AV zohra jermaine agents beside the amiodarone at this point Objective - Vital Signs Vital signs: Vital Signs Temp 98.0 F 06/22/23 12:00 Pulse 81 06/22/23 14:00 Resp 16 06/22/23 14:00 BP 150/67 06/22/23 13:00 Pulse Ox 91 L 06/22/23 14:00 FiO2 Intake & Output 06/21/23 06/22/23 06/22/23 18:59 06:59 18:59 Intake Total 4075.424 6401.460 4939.740 Output Total 2160 1985 1545 Balance 1915.424 -667.152 -177.260 Weight 120.8 kg Intake: IV 3723.32 926.67 510 Amiodarone 360 mg In 199.98 Dextrose 5% in Water 200 ml @ 1 MG/MIN 33.333 mls/ hr IV .Q6H ONE Rx#: [id number] Amiodarone 450 mg In 33.34 16.67 Dextrose 5% in Water 250 ml @ 0.5 MG/MIN 16.667 mls/hr IV .Q15H SILVIANO Rx#: [id number] Dextrose 5% in Water 1, 140 910 210 000 ml @ 70 mls/hr IV . [id number] SILVIANO with Sodium Bicarb (1 Meq/ml) 150 ml Rx#:[id number] Dextrose 5% in Water 100 100 ml @ 618 mls/hr IV .Q10M ONE with Amiodarone 150 mg Rx#:[id number] Magnesium Sulfate-D5w Pmx 100 1 gm In Dextrose/Water 1 100ml.bag @ 100 mls/hr IVPB ONCE ONE Rx#: [id number] Sodium Chloride 0.9% 1, 800 000 ml @ 100 mls/hr IV . Q10H SILVIANO Rx#:[id number] Sodium Chloride 0.9% 1, 300 000 ml @ 75 mls/hr IV . [id number] SILVIANO Rx#:[id number] Sodium Chloride 0.9% 1, 2000 000 ml @ 999 mls/hr IV . Q1H1M ONE Rx#:[id number] Sodium Phosphate 30 mmol 250 In Dextrose 5% in Water 250 ml @ 65 mls/hr IVPB ONCE ONE Rx#:[id number] cefTRIAXone 1 gm In 100 Sodium Chloride 0.9% 50 ml @ 100 mls/hr IVPB ONCE STA Rx#:[id number] Intake, IV Titration 352.104 391.178 277.740 Amount Amiodarone 450 mg In 235.282 Dextrose 5% in Water 250 ml @ 0.5 MG/MIN 16.667 mls/hr IV .Q15H SILVIANO Rx#: [id number] Norepinephrine 4 mg In 352.104 155.896 277.740 Sodium Chloride 0.9% 250 ml @ 0.03 MCG/KG/MIN 13. 48 mls/hr IV .[id number] SILVIANO Rx#:[id number] Oral 580 Output: Urine 2160 1985 1545 Other: Voiding Method Indwelling Catheter Indwelling Catheter Indwelling Catheter ABP, PAP, CO, CI - Last Documented Arterial Blood Pressure 92/44 - Labs CBC & Chem 7: 06/22/23 03:50 06/22/23 03:50 Labs: Abnormal Lab Results - Last 24 Hours (Table) 06/21/23 06/22/23 06/22/23 Range/Units 17:40 00:15 03:50 WBC (3.8-10.6) k/uL RBC (4.30-5.90) m/uL Hgb (13.0-17.5) gm/dL Hct (39.0-53.0) % Plt Count (150-450) k/uL Neutrophils # (Manual) (1.3-7.7) k/uL Lymphocytes # (Manual) (1.0-4.8) k/uL Metamyelocytes # (Man) (0) k/uL Sodium 134 L (137-145) mmol/L BUN 33 H (9-20) mg/dL Creatinine 2.11 H (0.66-1.25) mg/dL Glucose 198 H (74-99) mg/dL Calcium 7.8 L (8.4-10.2) mg/dL Troponin I 0.092 H* 0.061 H* (0.000-0.034) ng/mL 06/22/23 Range/Units 03:50 WBC 25.6 H (3.8-10.6) k/uL RBC 3.79 L (4.30-5.90) m/uL Hgb 12.8 L (13.0-17.5) gm/dL Hct 37.7 L (39.0-53.0) % Plt Count 139 L (150-450) k/uL Neutrophils # (Manual) 23.50 H (1.3-7.7) k/uL Lymphocytes # (Manual) 0.77 L (1.0-4.8) k/uL Metamyelocytes # (Man) 0.77 H (0) k/uL Sodium (137-145) mmol/L BUN (9-20) mg/dL Creatinine (0.66-1.25) mg/dL Glucose (74-99) mg/dL Calcium (8.4-10.2) mg/dL Troponin I (0.000-0.034) ng/mL Microbiology - Last 24 Hours (Table) 06/21/23 08:07 Urine Culture - Preliminary Urine,Catheterized Gram Neg Bacilli
--- NOTE | 2023-06-22 16:29 | P.PN ---
Subjective Progress Note Date: 06/22/23 No acute events. Pt now in NSR, amio drip stopped. BP improved, requiring less pressors. Pt reports feeling depressed regarding diagnosis. Service was paged today in regards to possible transfer to [facility]. Pt is not wanting to transfer for surgical evaluation, until he has more information in regards to extent of metastasis, as he is unsure if he would want to undergo surgical intervention or systemic treatment if disease is extensive and has wide spread metastasis Objective - Vital Signs Vital signs: Vital Signs Temp 98.1 F 06/22/23 08:00 Pulse 82 06/22/23 11:00 Resp 26 H 06/22/23 11:00 BP 150/67 06/22/23 08:45 Pulse Ox 96 06/22/23 11:00 FiO2 Intake & Output 06/21/23 06/22/23 06/22/23 18:59 06:59 18:59 Intake Total 4075.424 1317.848 662.740 Output Total 2160 1985 995 Balance 1915.424 -667.152 -332.260 Weight 120.8 kg Intake: IV 3723.32 926.67 285 Amiodarone 360 mg In 199.98 Dextrose 5% in Water 200 ml @ 1 MG/MIN 33.333 mls/ hr IV .Q6H ONE Rx#: [id number] Amiodarone 450 mg In 33.34 16.67 Dextrose 5% in Water 250 ml @ 0.5 MG/MIN 16.667 mls/hr IV .Q15H [facility] Rx#: [id number] Dextrose 5% in Water 1, 140 910 210 000 ml @ 70 mls/hr IV . [id number] [facility] with Sodium Bicarb (1 Meq/ml) 150 ml Rx#:[id number] Dextrose 5% in Water 100 100 ml @ 618 mls/hr IV .Q10M ONE with Amiodarone 150 mg Rx#:[id number] Magnesium Sulfate-D5w Pmx 100 1 gm In Dextrose/Water 1 100ml.bag @ 100 mls/hr IVPB ONCE ONE Rx#: [id number] Sodium Chloride 0.9% 1, 800 000 ml @ 100 mls/hr IV . Q10H [facility] Rx#:[id number] Sodium Chloride 0.9% 1, 75 000 ml @ 75 mls/hr IV . [id number] [facility] Rx#:[id number] Sodium Chloride 0.9% 1, 2000 000 ml @ 999 mls/hr IV . Q1H1M ONE Rx#:[id number] Sodium Phosphate 30 mmol 250 In Dextrose 5% in Water 250 ml @ 65 mls/hr IVPB ONCE ONE Rx#:[id number] cefTRIAXone 1 gm In 100 Sodium Chloride 0.9% 50 ml @ 100 mls/hr IVPB ONCE STA Rx#:[id number] Intake, IV Titration 352.104 391.178 277.740 Amount Amiodarone 450 mg In 235.282 Dextrose 5% in Water 250 ml @ 0.5 MG/MIN 16.667 mls/hr IV .Q15H [facility] Rx#: [id number] Norepinephrine 4 mg In 352.104 155.896 277.740 Sodium Chloride 0.9% 250 ml @ 0.03 MCG/KG/MIN 13. 48 mls/hr IV .[id number] [facility] Rx#:[id number] Oral 100 Output: Urine 2160 1985 995 Other: Voiding Method Indwelling Catheter Indwelling Catheter Indwelling Catheter ABP, PAP, CO, CI - Last Documented Arterial Blood Pressure 105/54 - Constitutional General appearance: Present: average body habitus, no acute distress - EENT Eyes: Present: anicteric sclerae, EOMI ENT: Present: hearing grossly normal - Respiratory Details: breathing is even and unlabored - Cardiovascular Details: well-perfused - Integumentary Integumentary: Absent: cyanotic - Neurologic Neurologic Comment(s): no focal deficits, generalized weakness - Musculoskeletal Musculoskeletal: Present: generalized weakness - Psychiatric Psychiatric: Present: A&O x's 3 - Labs CBC & Chem 7: 06/22/23 03:50 06/22/23 03:50 Labs: Abnormal Lab Results - Last 24 Hours (Table) 06/21/23 06/22/23 06/22/23 Range/Units 17:40 00:15 03:50 WBC (3.8-10.6) k/uL RBC (4.30-5.90) m/uL Hgb (13.0-17.5) gm/dL Hct (39.0-53.0) % Plt Count (150-450) k/uL Neutrophils # (Manual) (1.3-7.7) k/uL Lymphocytes # (Manual) (1.0-4.8) k/uL Metamyelocytes # (Man) (0) k/uL Sodium 134 L (137-145) mmol/L BUN 33 H (9-20) mg/dL Creatinine 2.11 H (0.66-1.25) mg/dL Glucose 198 H (74-99) mg/dL Calcium 7.8 L (8.4-10.2) mg/dL Troponin I 0.092 H* 0.061 H* (0.000-0.034) ng/mL 06/22/23 Range/Units 03:50 WBC 25.6 H (3.8-10.6) k/uL RBC 3.79 L (4.30-5.90) m/uL Hgb 12.8 L (13.0-17.5) gm/dL Hct 37.7 L (39.0-53.0) % Plt Count 139 L (150-450) k/uL Neutrophils # (Manual) 23.50 H (1.3-7.7) k/uL Lymphocytes # (Manual) 0.77 L (1.0-4.8) k/uL Metamyelocytes # (Man) 0.77 H (0) k/uL Sodium (137-145) mmol/L BUN (9-20) mg/dL Creatinine (0.66-1.25) mg/dL Glucose (74-99) mg/dL Calcium (8.4-10.2) mg/dL Troponin I (0.000-0.034) ng/mL Microbiology - Last 24 Hours (Table) 06/21/23 08:07 Urine Culture - Preliminary Urine,Catheterized Gram Neg Bacilli Assessment and Plan (1) Pathological fracture Current Visit: Yes Status: Acute Priority: High Code(s): M84.40XA - PATHOLOGICAL FRACTURE, UNSP SITE, INIT ENCNTR FOR FRACTURE SNOMED Code(s): 437590522 (2) Pulmonary nodules/lesions, multiple Current Visit: Yes Status: Acute Priority: High Code(s): R91.8 - OTHER NONSPECIFIC ABNORMAL FINDING OF LUNG FIELD SNOMED Code(s): 866956052 Plan: #Pathological fracture, metastatic malignancy -Mr. Estrada had progressive left flank/abdominal pain of 2 weeks duration -CT abdomen/pelvis with contrast noted pathological fracture at T10 with expansile lesion to the posterior pedicles as well as the lesion involving the vertebral bodies of T9-T11 along with the presence of scattered pulmonary nodules bilaterally and prostatomegaly -He denies any saddle anesthesia, focal weakness, or bladder/bowel incontinence -PSA along with myeloma labs ordered yesterday are still pending -MRI of the thoracic and lumbar spine performed on 06/20/2023 noted soft tissue replacement of the T10 vertebral body and most of the T9 vertebral body with protrusion into the spinal canal, but no evidence of stenosis -Clinically, he is neurologically stable -His hospital course was complicated by atrial fibrillation with RVR resulting in hypotension requiring amiodarone and Levophed for blood pressure support -His case was discussed between Dr. Haley and his PCP Dr. Senior in [place], [place] with plans to transfer to [facility] for surgical evaluation -I discussed with Mr. Estrada and his that he would have to be off of pressors and have stabilization of atrial fibrillation prior to proceeding with surgery -We also discussed that surgery would be both diagnostic and therapeutic and would help us obtain diagnosis -We discussed that complete staging workup would not be required prior to pursuing surgical intervention -Depending on diagnosis and his hospital course, PET/CT outpatient or CT chest with contrast and nuclear medicine bone scan inpatient could be performed -Service was paged today in regards to family wanting to speak with oncology regarding possible transfer. Pt states he is not wanting to transfer for surgical evaluation, until he has better idea in regards to extent of metastasis, as he is unsure if he would want to undergo surgical intervention or systemic treatment if disease is extensive and wide spread. It was discussed with patient and spouse during consult that even though he is currently neurologically stable symptoms could progress. Patient is requesting staging imaging be completed before considering transfer. It was discussed that PET CT can not be obtained inpt due to insurance coverage and that even though PET would be preferred testing in regards to staging, could obtain CT chest and bone scan inpt, but due to PAM, contrast studies could not be obtained at this time. Kidney function has slightly improved today. Did discuss we could see what kidney function is tomorrow, and if in safe range we could proceed with contrast imaging. If labs do not show meaningful improvement will have to rediscuss transfer with patient, as we do want to delay care further, waiting days or even longer to obtain staging imaging #Atrial fibrillation with RVR -Developed early in the morning of 06/21/2023 -Was started on amiodarone and requiring Levophed for blood pressure support. Now in NSR, amio drip stopped. BP improved, requiring less pressors. -Management per primary and cardiology teams
--- NOTE | 2023-06-22 17:19 | P.PN ---
Progress Note - Text Progress Note Date: 06/22/23 The patient is seen and examined again today at bedside in the intensive care unit. His and son are at bedside with him. He is not having new complaints. He says his left abdomen hurts significantly when he tried to roll him onto his left side. He denies any new changes in his neurologic status or new weakness. He is getting supportive care for his blood pressure intensive care unit. He has not been able to obtain other imaging studies as they are continue to manage his pressures actively. On exam he is still able to perform dorsiflexion plantarflexion EHL on his lower extremities. He is able to lift his legs but has pain of his back when he does not. His abdomen is obese is nontender to palpation. His upper extremities have good active and passive range of motion. Assessment and plan 60 Pathologic fracture T10 Bony metastasis at multiple areas of the spine with complete involvement of the vertebral body at the 10 and significant bone at T9 and T11 without obvious neurologic loss Hypotension being supported with medication and answered care unit Metastatic cancer throughout the spine with nodules of the lungs of uncertain primary Ankylosing spondylitis I again discussed at length the nature of the patient's issues with the family. We discussed the fact that there is significant bony destruction at his thoracic spine involving T9-T10 and T11 with pathologic fracture. I think that he has instability due to these and this is causing his significant pain when he tries to roll or move. We have kept him on bedrest thus far. He is not having neurologic decline or change. I think that in order to for him to be able to mobilize that he would require surgical intervention with stabilization through his thoracic and lumbar spine. I have discussed this with him at length. The patient has been having severe medical issues with hypotension and has sign ificant history from his abdominal aortic aneurysm surgeries. The patient has significant risk and it is difficult to predict how treatment may be tolerated. I explained to him that surgical intervention at his spine would be best served at a tertiary facility. I discussed the case with his primary care doctor yesterday who was asking for him to be transferred to [facility] in [place]. I think that is appropriate for him. I think that transfer would allow him to continue his further workup evaluation and definitive treatment that is beyond the scope at this hospital. I explained that to them at length today. I recommended to them that the pursue transfer to [facility]. We planned for this transfer yesterday and initiated the transfer however the family hesitated with for the transfer while considering further testing here. We have not been able to obtain the testing given the patient's medical status thus far. They will discuss this further and likely plan for transfer to [facility] for continued workup evaluation and treatment.
[2023-06-22 17:34] VITALS: PULSE 82
--- NOTE | 2023-06-22 19:23 | P.DS ---
Providers Date of admission: 06/19/23 15:10 Attending physician: Harish Austin Consults: 06/19/23 15:39 Consult Physician Urgent Consulting Provider: Sam Malone Consult Reason/Comments: Metastatic disease, pathological fracture Do you want consulting provider notified?: Yes Consult Physician Urgent Consulting Provider: Milton Brush Consult Reason/Comments: vertebral fracture Do you want consulting provider notified?: Yes 06/21/23 07:36 Consult Physician Urgent Consulting Provider: Lokesh Mclean Consult Reason/Comments: ICU management Do you want consulting provider notified?: Already Contacted 06/21/23 09:57 Consult Physician Routine Consulting Provider: Olegario Seaman Consult Reason/Comments: new onset AFIB Do you want consulting provider notified?: Already Contacted Consult Physician Routine Consulting Provider: Sienna Huertas Consult Reason/Comments: PAM Do you want consulting provider notified?: Already Contacted Primary care physician: Ambrocio Senior Hospital Course: Diagnoses: Acute hypotension And shock state (multifactorial due to dehydration, infection, cardiac disease and suspected cancer) Pathological fracture of T10 vertebra suspicious for metastatic disease Abdominal pain secondary to above, referred pain. Differential diagnosis infection, stone, malignancy Multiple pulmonary nodules suspicious for metastatic disease, unknown primary source Acute kidney injury acute urinary tract infection, urine cultures growing gram-negative bacilli Hypertension Diabetes mellitus Obesity with BMI of 35.3. Peripheral vascular disease. Hospital course: this is a pleasant 72 yo male with past medical history of diabetes , mellitus and hypertension , hyperlipidemia , peripheral vascular disease who present because of abdominal pain , he has this pain for about two weeks now and it started as mild pain in the lower and middle abdomen on the left side at the area of the left flank and was radiating to the front at the level of the umbilicus , he went to see his pcp who did xray for him but this came back negative , it is thought to be a pulled muscle by his doctor so prescribed some excersizes for him , but over the last few days his pain became really worse so he decided to come to the hospital, his pain is 0 without movement but jumps to 8-9/10 in severity with movement besides his abdominal exam is benign soft with no abdominal tenderness. The pain feels like sharp. CT of the abdomen and pelvis with contrast showing pathological fracture of T10 and scattered pulmonary nodule suspicious for cancer. Orthopedic team was consulted and thought the pathological fracture of T10 vertebra is beyond capability of this facility and recommended transfer the patient to tertiary care center. During first day of admission overnight patient developed hypotension and he will needed to be transferred to the ICU to receive pressors, he was in the intensive care unit for the last 2 days were received higher dose of pressors Levophed 0.08 but today it was stopped also he received several boluses of normal saline and started treating for antibiotic as his urine analysis was suspicious for infection and urine culture is growing gram-negative bacilli pending final result. Also patient had fever 102 on 06/20, today has been afebrile. Yesterday his white cell count was 9000 and today jumped to 25.600, however patient denies specific urinary symptoms of dysuria or urgency currently. Blood culture is requested and is pending On admission patient has mildly elevated troponin 0.16, 0.09 and 0.06 evaluated by cell technician for his atrial fibrillation however because of hypotension he was treated with amiodarone and responded to that well. Anticoagulation were held given his possible cancer and spinal metastasis and other medical problems per recommendation of cell technician. He was placed on aspirin 81 mg amiodarone 200 mg twice daily and statin. While his home dose of metoprolol and losartan and hydralazine were held for now. On admission his creatinine was 1.35, unknown baseline increase yesterday to 2.3 and today start improving 2.0. Currently he is on normal saline at 75 mL/h. This morning family wanted to hold the transferred to [facility] however after Dr. Haley from orthopedic follow-up today in the afternoon family change their mind again and they want him to be transferred to [facility], I d iscussed the case with Dr. Andersen and discussed the case with him and he kindly accepted the patient at [facility] Patient and family agreeable to be transferred as well per my discussion with him earlier per staff. Patient currently of Levophed and patient was cleared for critical care team to be transfer to general medical floor at stepdown select units. He is pending bed availability. Patient is medically stable and guarded prognosis to be transferred to [facility] Problems and management plan were discussed with the patient and he verbalized understanding and acceptance Physical exam -Gen: patient is a AAOx3, mildly drowsy, no distress, patient feels generally weak CVS: S1-S2, RRR, no murmur Lungs: B/L CTA, no wheezing Abdomen: soft, no distention, no tenderness, positive bowel sounds Extremity: no leg edema or induration Neuro: Cranial nerves are grossly intact. Strength 5/5. Sensation intact. Meningeal signs absent. Time spent more than 35 minutes Patient Condition at Discharge: Good Plan - Discharge Summary Discharge Rx Participant: No New Discharge Prescriptions: No Action Mv-Min/Folic/K1/Lycopen/Lutein [Centrum Silver Men Tablet] 1 tab PO DAILY@1200 Ascorbic Acid [Vitamin C] 1,000 mg PO DAILY Finasteride [Proscar] 5 mg PO DAILY@1200 Aspirin EC [Ecotrin Low Dose] 81 mg PO HS hydrALAZINE HCL [Apresoline] 10 mg PO TID Famotidine [Pepcid] 20 mg PO BID Atorvastatin Calcium [Lipitor] 80 mg PO HS cilostazoL 100 mg PO DAILY Metoprolol Tartrate [Lopressor] 100 mg PO BID Dapagliflozin Propanediol [Farxiga] 10 mg PO DAILY@1200 [place]-3/Dha/Epa/Fish Oil [Fish Oil 1,000 mg Softgel] 1 cap PO DAILY Cholecalciferol [Vitamin D3 (25 Mcg = 1000 Iu)] 25 mcg PO DAILY@1200 Glimepiride [Amaryl] 2 mg PO DAILY@1200 Losartan [Cozaar] 25 mg PO HS Fenofibrate Nanocrystallized [Fenofibrate] 48 mg PO DAILY@1200 Ezetimibe [Zetia] 10 mg PO HS Discharge Medication List Ascorbic Acid [Vitamin C] 1,000 mg PO DAILY 06/19/23 [History] Aspirin EC [Ecotrin Low Dose] 81 mg PO HS 06/19/23 [History] Atorvastatin Calcium [Lipitor] 80 mg PO HS 06/19/23 [History] Cholecalciferol [Vitamin D3 (25 Mcg = 1000 Iu)] 25 mcg PO DAILY@1200 06/19/23 [History] Dapagliflozin Propanediol [Farxiga] 10 mg PO DAILY@1200 06/19/23 [History] Ezetimibe [Zetia] 10 mg PO HS 06/19/23 [History] Famotidine [Pepcid] 20 mg PO BID 06/19/23 [History] Fenofibrate Nanocrystallized [Fenofibrate] 48 mg PO DAILY@1200 06/19/23 [History] Finasteride [Proscar] 5 mg PO DAILY@1200 06/19/23 [History] Glimepiride [Amaryl] 2 mg PO DAILY@1200 06/19/23 [History] Losartan [Cozaar] 25 mg PO HS 06/19/23 [History] Metoprolol Tartrate [Lopressor] 100 mg PO BID 06/19/23 [History] Mv-Min/Folic/K1/Lycopen/Lutein [Centrum Silver Men Tablet] 1 tab PO DAILY@119906/19/23 [History] [place]-3/Dha/Epa/Fish Oil [Fish Oil 1,000 mg Softgel] 1 cap PO DAILY 06/19/23 [History] cilostazoL 100 mg PO DAILY 06/19/23 [History] hydrALAZINE HCL [Apresoline] 10 mg PO TID 06/19/23 [History] Follow up Appointment(s)/Referral(s): Ambrocio Senior MD [Primary Care Provider] - 1-2 days
[2023-06-22] MEDS: ALPRAZolam 0.25 MG TAB PO STA (20:29)
[2023-06-22 20:31] VITALS: BP 127/64; RESP 20; TEMP 98.7
--- NOTE | 2023-06-24 18:21 | CDI ---
Documentation Clarification Form Date: 06/24/2023 06:04:41 PM From: Ofelia Ortiz Phone: Admit Date: 06/19/2023 03:10:00 PM Patient Name: Dennis Estrada Visit Number: [id number] Discharge Date: 06/22/2023 10:00:00 PM ATTENTION: The Clinical Documentation Specialists (CDI) and [facility] Coding Staff appreciate your assistance in clarifying documentation. Please respond to the clarification below the line at the bottom and electronically sign. The CDI & [facility] Coding staff will review the response and follow-up if needed. Please note: Queries are made part of the Legal Health Record. If you have any questions, please contact the author of this message via ITS. Dr. Rahat Wiley NSTEMI is documented Consult 06/20. Additional clarification regarding the type of NC is requested. History/Risk Factors: 72yo M, hypotension d/tshock, CAD, pathological fracture of T9/G10mqlb/compression fracture, multiple pulmonary nodulessuspicious formets, PAM, UTI w gram- bacilli, HTN w CHF & CKD, DMII w PVD, obesity, AHRF Clinical Indicators: Troponin: 06/18 0.169 3/ 0.061-0.092 Treatment: Evaluated by information director for hisA Fibhowever because ofhypotensionhe was treated with amiodarone and responded to that well Please clarify the type of NC, if known: [ ] NSTEMI (type 1) [ ] Type II NC due to (please specify etiology) [ ] Unable to determine [x ] Other Condition, please specify: a fib (Template Last Revised: June 2020) MTDD
--- NOTE | 2023-06-24 19:04 | CDI ---
Documentation Clarification Form Date: 06/24/2023 06:22:00 PM From: Ofelia Ortiz Phone: Admit Date: 06/19/2023 03:10:00 PM Patient Name: Dennis Estrada Visit Number: [id number] Discharge Date: 06/22/2023 10:00:00 PM ATTENTION: The Clinical Documentation Specialists (CDI) and [facility] Coding Staff appreciate your assistance in clarifying documentation. Please respond to the clarification below the line at the bottom and electronically sign. The CDI & [facility] Coding staff will review the response and follow-up if needed. Please note: Queries are made part of the Legal Health Record. If you have any questions, please contact the author of this message via ITS. Dr. Giang E Sheet Your patient has the documented diagnosis of unspecified CHF Consult 06/20. Additional information regarding the type and acuity of CHF is requested. History/Risk Factors: 72yo M, hypotension d/t shock, CAD, pathological Fx T9/T10 mass/compression fracture, multiple pulmonary nodules suspicious for mets, PAM, UTI w gram- bacilli, HTN w CHF & CKD, DMII w PVD, obesity, AHRF Clinical Indicators: O2 Sat by Pulse: 65 06/19/23 BNP: 4000 Echo Results: EF of 50 to 55%with nomajor valvularabnormality Chest X Ray: Cardiomegalywith vascularcongestionand increased interstitial markings, likelyedema. Treatment: Noted to be given 2 L of IV fluid and currently is on a bicarbinfusionand IV Rocephin as an empiric Abxcoverage. Awaiting anEcho. Stop ESSENCE inhibitors. In your professional opinion, can you please clarify type and acuity of CHF if known? [ ] Acute Systolic Heart Failure (reduced EF) [ ] Chronic Systolic Heart Failure (reduced EF) [ ] Acute on Chronic Systolic Heart Failure (reduced EF) [ ] Acute Diastolic Heart Failure (preserved EF) [ ] Chronic Diastolic Heart Failure (preserved EF) [ ] Acute on Chronic Diastolic Heart Failure (preserved EF) [ ] Acute Systolic & Diastolic Heart Failure [ ] Chronic Systolic & Diastolic Heart Failure [ ] Acute on Chronic Heart Failure Systolic & Diastolic Heart Failure [ ] Other, please specify [ x ] Unable to determine (Template Last Revised: May 2020) MTDD
--- NOTE | 2023-06-24 19:29 | CDI ---
Documentation Clarification Form Date: 06/24/2023 07:04:44 PM From: Ofelia Ortiz Phone: Admit Date: 06/19/2023 03:10:00 PM Patient Name: Dennis Estrada Visit Number: [id number] Discharge Date: 06/22/2023 10:00:00 PM ATTENTION: The Clinical Documentation Specialists (CDI) and [facility] Coding Staff appreciate your assistance in clarifying documentation. Please respond to the clarification below the line at the bottom and electronically sign. The CDI & [facility] Coding staff will review the response and follow-up if needed. Please note: Queries are made part of the Legal Health Record. If you have any questions, please contact the author of this message via ITS. Dr. Rahat Wiley Unspecified CKD is documented Consult Note 3/3. Additional clarification regarding the stage of CKD is requested. History/Risk Factors: 72yo M, hypotension d/t shock, CAD, pathological Fx T9/T10 mass/compression fracture, multiple pulmonary nodules suspicious for mets, PAM, UTI w gram- bacilli, HTN w CHF & CKD, DMII w PVD, obesity, AHRF Patients Historical BUN/CR/GFR: unknownbaseline Clinical Indicators: Cr: 2.11 BUN: 33 AfAm: 35 Non AfAm: 30 Treatment: Angiotensin receptor blockers currently on hold. No evidence of obstructiononCT of the abdomen. Currently maintained on IV fluids. UA shows RBCs more than 182 WBCs 23 with trace protein. Currently with indwellingFoley catheter. Please clarify the stage of the CKD, if known: [ ] CKD Stage 3b [ ] CKD Stage 4 [ ] Other, please specify [ ] Unable to determine Reference: [employer] Stage 1 eGFR = 90 and kidney damage for =3 months Stage 2 eGFR 60-89 and kidney damage for =3 months Stage 3a eGFR 45-59 and kidney damage for =3 months Stage 3b eGFR 30-44 and kidney damage for =3 months Stage 4 eGFR 15-29 r and kidney damage for =3 months Stage 5 eGFR <15 and kidney damage for =3 months (Template last revised: April 2023) michelle burns
== END 2023-06-22 22:00 | disposition short-term general hospital (02) | DRG 542 ==
LOC: EC 11:35 → 4SSUR 15:10 → OBSVTOIN 15:10 → 4SSUR 16:25 → 2SICU 06-21 07:01
PROVIDERS: ADMIT Internal Medicine; ATTEND Internal Medicine
PROC: 04HY32Z Insertion of Monitoring Device into Lower Artery, Percutaneous Approach (ICD-10-PCS; principal; 2023-06-21)
PROC: 4A133B1 Monitoring of Arterial Pressure, Peripheral, Percutaneous Approach (ICD-10-PCS; 2023-06-21)
PROC: 4A133J1 Monitoring of Arterial Pulse, Peripheral, Percutaneous Approach (ICD-10-PCS; 2023-06-21)
PROC: 3E053XZ Introduction of Vasopressor into Peripheral Artery, Percutaneous Approach (ICD-10-PCS; 2023-06-21)
DX: M84.58XA Pathological fracture in neoplastic disease, other specified site, initial encounter for fracture (principal); J96.01 Acute respiratory failure with hypoxia; R57.8 Other shock; N17.0 Acute kidney failure with tubular necrosis; C79.51 Secondary malignant neoplasm of bone; C78.01 Secondary malignant neoplasm of right lung; C78.02 Secondary malignant neoplasm of left lung; E87.20 Acidosis, unspecified; N39.0 Urinary tract infection, site not specified; I72.8 Aneurysm of other specified arteries; E11.22 Type 2 diabetes mellitus with diabetic chronic kidney disease; E11.51 Type 2 diabetes mellitus with diabetic peripheral angiopathy without gangrene; C80.1 Malignant (primary) neoplasm, unspecified; I50.9 Heart failure, unspecified; I11.0 Hypertensive heart disease with heart failure; M45.9 Ankylosing spondylitis of unspecified sites in spine; I48.91 Unspecified atrial fibrillation; E86.0 Dehydration; E66.9 Obesity, unspecified; N36.8 Other specified disorders of urethra; N40.0 Benign prostatic hyperplasia without lower urinary tract symptoms; E78.5 Hyperlipidemia, unspecified; B96.89 Other specified bacterial agents as the cause of diseases classified elsewhere; Z68.35 Body mass index [BMI] 35.0-35.9, adult; R26.2 Difficulty in walking, not elsewhere classified; R31.9 Hematuria, unspecified; R35.1 Nocturia; Z79.82 Long term (current) use of aspirin; Z79.84 Long term (current) use of oral hypoglycemic drugs; Z79.02 Long term (current) use of antithrombotics/antiplatelets; Z79.899 Other long term (current) drug therapy; Z86.79 Personal history of other diseases of the circulatory system; Z88.2 Allergy status to sulfonamides
CPT/HCPCS: 71045; 72157; 72158; 74177; 76770; 80048; 80053; 81001; 82150; 82550; 82552; 82553; 82784; 83605; 83735; 83880; 83883; 84100; 84153; 84165; 84484; 85025; 85610; 85730; 86140; 86334; 87040; 87077; 87086; 87186; 93306; 93970; 96361; 96372; 96374; 96375; 96376; 99285

== ENCOUNTER → 2023-07-08 | Outpatient (CLI) | payer MEDICARE ==
--- NOTE | 2023-07-08 21:03 | MR ---
EXAMINATION TYPE: MR brain wo/w con DATE OF EXAM: 07/08/2023 7:17 PM CLINICAL INDICATION:Male, 72 years old with history of C34.31 MALIGNANT BRIANDA OF LOWER LOBE; PHH, Lung cancer COMPARISON: None TECHNIQUE: Multi planar, multi sequence imaging was performed through the brain including: T1, T2, In version recovery, susceptibility weighted imaging and gradient echo imaging and Diffusion weighted im aging. The patient was then given intravenous contrast and multi planar, T1 fat-saturation images wer e obtained. IV Contrast: 11.5 cc Gadavist FINDINGS: No evidence of diffusion restriction throughout the brain. The king-white junctions, ventricular syst em, basal cisterns appear unremarkable. The septum pellucidum appears slightly off center towards the left, judged to represent anatomic variation. The major vascular flow voids at the base of brain are preserved. Left vertebral is dominant, and the right vertebral likely ends as the PICA. Midline structures show no acute abnormality. Mild chronic degenerative change of the anterior C1-C2 articulation with minimal narrowing of the anterior canal. No cerebellar tonsillar ectopia or abnorma lity of the upper cervical cord suggested. Unremarkable corpus callosum. No distinct foci of T2/FLAIR signal hyperintensity is identified. No significant atrophy. The suscept ibility weighted images do not reveal any evidence for micro-hemorrhage. Postcontrast, there is no evidence of mass or other abnormal enhancement seen. There is preserved enh ancement of the intracranial vasculature with no gross abnormalities detected. Dural venous sinuses a ppear patent. The bone marrow signal is within normal limits. Paranasal sinuses and mastoid air cells: Lobular mucosal thickening along the periphery of the maxill bert sinuses. No abnormal signal in the mastoids. Mild nasal septal deviation towards the left. Globes and orbital contents appear unremarkable. IMPRESSION: 1. No evidence of intracranial mass, acute/subacute infarct, or abnormal enhancement. 2. Maxillary sinus mucosal thickening.
== END | disposition home or self-care (01) ==
LOC: RADMRIMAIN 18:10
PROVIDERS: ATTEND Internal Medicine Hematology & Oncology
DX: J34.89 Other specified disorders of nose and nasal sinuses (principal); C34.31 Malignant neoplasm of lower lobe, right bronchus or lung
CPT/HCPCS: 70553; A9585

== ENCOUNTER → 2023-07-10 | Outpatient (CLI) | payer MEDICARE ==
--- NOTE | 2023-07-13 12:37 | PE ---
EXAMINATION TYPE: PET CT fusion skull to thigh DATE OF EXAM: 07/10/2023 CLINICAL INDICATION:Male, 72 years old with history of C34.31 MALIGNANT NEOPLASM OF LOWER LOBE, RIGHT BRO; TECHNIQUE: Following the intravenous administration of 10.0 mCi of F-18 FDG, whole body images are performed from the skull base to the midthigh. Images are reviewed on the computer in the coronal, a xial, and sagittal planes. Reconstructed rotating images are created on independent workstation and reviewed on the computer. A non-contrast CT is performed in conjunction with the PET scan. Glucose level 110 mg/dL CT DLP: 1013. mGycm, Automated exposure control for dose reduction was used. COMPARISON: CT 06/19/2023, PET/CT None, MRI 06/20/2023, MRI brain 07/08/2023 FINDINGS: Mediastinal SUV mean is 2.6. Hepatic parenchyma SUV mean is 2.5. SKULL BASE AND NECK: CHEST, MEDIASTINUM, AND HILAR REGION: 1. Scattered pulmonary nodules throughout the lungs, largest left lower lung base max SUV 4.0 measur ing 9 mm, Right upper lung 9 mm nodule Max SUV 1.7 2. Left anterior pulmonary hilum max SUV 6.1. ABDOMEN AND PELVIS: No suspicious radiotracer activity. MUSCULOSKELETAL STRUCTURES: Scattered osseous abnormal uptake is seen on prior imaging. Examples include: * C3 max SUV 7.9. * T9 and T10 max SUV 19.2. * Left posterior acetabulum max SUV 7.6. * Right iliac bone max SUV 6 8.3. * L5 vertebrae accessory 7.9. * T6 max SUV 10.3. * Left rib 2 Max SUV 6.3 * Right inferior scapula max SUV 4.[address]: Atherosclerosis of the arterial vasculature including the carotid bifurcations. Bilateral f at-containing inguinal hernias. Left common iliac stent graft. IMPRESSION: Scattered abnormal uptake throughout the osseous structures with scattered pulmonary nodules and upta ke around the left superior lung large airway near the hilum. Findings are compatible with malignancy with metastatic disease.
== END | disposition home or self-care (01) ==
LOC: RADPETMAIN 10:34
PROVIDERS: ATTEND Internal Medicine Hematology & Oncology
DX: C34.31 Malignant neoplasm of lower lobe, right bronchus or lung (principal); R91.8 Other nonspecific abnormal finding of lung field
CPT/HCPCS: 78815; A9552

== ENCOUNTER 2023-07-11 08:25 | Emergency (ER) | payer MEDICARE ==
[2023-07-11 08:47] VITALS: TEMP 97.6
--- NOTE | 2023-07-11 09:24 | ED ---
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 Patient had received radiation and PET scan yesterday. Overnight he developed nausea vomiting with multiple episodes. He does report abdominal pain which she states has been present for the past several weeks and was the initial complaint that resulted in his diagnosis. He is not currently on chemotherapy. He denies fever. Denies chest pain. States no bowel movements in the past 2 days, no diarrhea. - Related Data Home Medications Medication Instructions Recorded Confirmed Ascorbic Acid [Vitamin C] 1,000 mg PO DAILY 06/19/23 06/19/23 Aspirin EC [Ecotrin Low Dose] 81 mg PO HS 06/19/23 06/19/23 Atorvastatin Calcium [Lipitor] 80 mg PO 06/19/23 06/19/23 Cholecalciferol [Vitamin D3 (25 25 mcg PO DAILY@119906/19/23 06/19/23 Mcg = 1000 Iu)] Dapagliflozin Propanediol [Farxiga] 10 mg PO DAILY@119906/19/23 06/19/23 Ezetimibe [Zetia] 10 mg PO 06/19/23 06/19/23 Famotidine [Pepcid] 20 mg PO BID 06/19/23 06/19/23 Fenofibrate Nanocrystallized 48 mg PO DAILY@119906/19/23 06/19/23 [Fenofibrate] Finasteride [Proscar] 5 mg PO DAILY@119906/19/23 06/19/23 Glimepiride [Amaryl] 2 mg PO DAILY@119906/19/23 06/19/23 Losartan [Cozaar] 25 mg PO HS 06/19/23 06/19/23 Metoprolol Tartrate [Lopressor] 100 mg PO BID 06/19/23 06/19/23 Mv-Min/Folic/K1/Lycopen/Lutein 1 tab PO DAILY@119906/19/23 06/19/23 [Centrum Silver Men Tablet] [place]-3/Dha/Epa/Fish Oil [Fish Oil 1 cap PO DAILY 06/19/23 06/19/23 1,000 mg Softgel] cilostazoL 100 mg PO DAILY 06/19/23 06/19/23 hydrALAZINE HCL [Apresoline] 10 mg PO TID 06/19/23 06/19/23 Previous Rx's Medication Instructions Recorded Ondansetron Odt [Zofran Odt] 4 mg PO Q8HR PRN #10 tab 07/11/23 Allergies Allergy/AdvReac Type Severity Reaction Status Date / Time Sulfa (Sulfonamide Allergy Rash/Hives Verified 07/11/23 08:30 Antibiotics) Review of Systems ROS Statement: Those systems with pertinent positive or pertinent negative responses have been documented in the HPI. ROS Other: All systems not noted in ROS Statement are negative. Past Medical History Past Medical History: Diabetes Mellitus, Hypertension Additional Past Medical History / Comment(s): AAA - 2009 History of Any Multi-Drug Resistant Organisms: None Reported Additional Past Surgical History / Comment(s): Aortic aneurysm repair Past Anesthesia/Blood Transfusion Reactions: No Reported Reaction Past Psychological History: No Psychological Hx Reported Smoking Status: Never smoker Past Alcohol Use History: Rare Past Drug Use History: None Reported General Exam Limitations: no limitations General appearance: alert, in no apparent distress Head exam: Present: atraumatic, normocephalic Eye exam: Present: normal appearance, PERRL ENT exam: Present: mucous membranes dry Neck exam: Present: normal inspection Respiratory exam: Present: normal lung sounds bilaterally. Absent: respiratory distress, wheezes Cardiovascular Exam: Present: regular rate, normal rhythm GI/Abdominal exam: Present: distended, tenderness Extremities exam: Present: normal inspection, normal capillary refill. Absent: calf tenderness Neurological exam: Present: alert, oriented X3, CN II-XII intact. Absent: motor sensory deficit Psychiatric exam: Present: normal affect, normal mood Skin exam: Present: warm, dry, intact Course Vital Signs 07/11/23 07/11/23 07/11/23 08:26 08:46 08:47 Temperature 97.6 F Pulse Rate 81 84 Respiratory 18 20 Rate Blood Pressure 169/91 154/76 154/76 O2 Sat by Pulse 95 95 94 L Oximetry 07/11/23 07/11/23 07/11/23 09:00 09:30 10:23 Temperature Pulse Rate Respiratory Rate Blood Pressure 154/76 153/79 O2 Sat by Pulse 96 92 L Oximetry Medical Decision Making - Medical Decision Making Was pt. sent in by a medical professional or institution (, [facility], [facility], urgent care, hospital, or fdc...) When possible be specific @ -No Did you speak to anyone other than the patient for history (EMS, parent, family, police, friend...)? What history was obtained from this source @ -[Patient's son and . Did you review nursing and triage notes (agree or disagree)? Why? @ -I reviewed and agree with nursing and triage notes Were old charts reviewed (outside hosp., previous admission, EMS record, old EKG, old radiological studies, urgent care reports/EKG's, fdc records)? Report findings @ -No old charts were reviewed Differential Diagnosis (chest pain, altered mental status, abdominal pain women, abdominal pain men, vaginal bleeding, weakness, fever, dyspnea, syncope, headache, dizziness, GI bleed, back pain, seizure, CVA, palpatations, mental health, musculoskeletal)? @Differential Abdominal Pain Men: Appendicitis, cholecystitis, diverticulosis, ischemic bowel, pancreatitis, hepatitis, UTI, gastroenteritis, AAA, incarcerated hernia, bowel obstruction, constipation, inflammatory bowel, hepatitis, peptic ulcer disease, splenic infarction, perforated viscus, testicular torsion, this is not meant to be an all-inclusive list EKG interpreted by me (3pts min.). @ -As above X-rays interpreted by me (1pt min.). @ -None done CT interpreted by me (1pt min.). @ -None done U/S interpreted by me (1pt. min.). @ -None done What testing was considered but not performed or refused? (CT, X-rays, U/S, labs)? Why? @ -None What meds were considered but not given or refused? Why? @ -None Did you discuss the management of the patient with other professionals (professionals i.e. [facility], [facility], lab, RT, psych nurse, web content & social media manager, coach tour driver, teacher, cavalry officer, cyanide case hardener)? Give summary @ -No Was smoking cessation discussed for >3mins.? @ -No Was critical care preformed (if so, how long)? @ -No Were there social determinants of health that impacted care today? How? (Homelessness, low income, unemployed, alcoholism, drug addiction, transportation, low edu. Level, literacy, decrease access to med. care, skilled nursing, rehab)? @ -No Was there de-escalation of care discussed even if they declined (Discuss DNR or withdrawal of care, Hospice)? DNR status @ -No What co-morbidities impacted this encounter? (DM, HTN, Smoking, COPD, CAD, Cancer, CVA, ARF, Chemo, Hep., AIDS, mental health diagnosis, sleep apnea, morbid obesity)? @ -[Recent diagnosis of cancer status postradiation yesterday Was patient admitted / discharged? Hospital course, mention meds given and route, prescriptions, significant lab abnormalities, going to OR and other pertinent info. @72-year-old male with acute nausea vomiting after radiation. Patient does have abdominal pain but states this has been chronic and is unchanged. No fever. Patient has mild lab abnormalities with stable hemoglobin, normal white blood cell count, negative lactic acid. Patient given IV fluid, antiemetics, and pain medication in the emergency department and feels significantly better. I did offer observation for continued treatment of symptoms patient declines. He prefers discharge at this time. Family is at bedside and is agreeable. Undiagnosed new problem with uncertain prognosis? @ -No Drug Therapy requiring intensive monitoring for toxicity (Heparin, Nitro, Insulin, Cardizem)? @ -No Were any procedures done? @ -No Diagnosis/symptom? @ -Nausea vomiting Acute, or Chronic, or Acute on Chronic? @ -acute Uncomplicated (without systemic symptoms) or Complicated (systemic symptoms)? @ -Default Side effects of treatment? @ -No Exacerbation, Progression, or Severe Exacerbation? @ -No Poses a threat to life or bodily function? How? (Chest pain, [place], [place], pneumonia, PE, COPD, DKA, ARF, appy, cholecystitis, CVA, Diverticulitis, Homicidal, Suicidal, threat to staff... and all critical care pts) @ -Low risk at this time - Lab Data Result diagrams: 07/11/23 09:07/11/23 09:24 Lab Results 07/11/23 07/11/23 07/11/23 Range/Units : 09: 09:24 WBC 10.4 (3.8-10.6) k/uL RBC 4.61 (4.30-5.90) m/uL Hgb 15.2 (13.0-17.5) gm/dL Hct 45.5 (39.0-53.0) % MCV 98.7 (80.0-100.0) fL MCH 32.9 (25.0-35.0) pg MCHC 33.3 (31.0-37.0) g/dL RDW 12.7 (11.5-15.5) % Plt Count 397 D (150-450) k/uL MPV 7.6 Neutrophils % 92 % Lymphocytes % 5 % Monocytes % 2 % Eosinophils % 1 % Basophils % 0 % Neutrophils # 9.5 H (1.3-7.7) k/uL Lymphocytes # 0.5 L (1.0-4.8) k/uL Monocytes # 0.2 (0-1.0) k/uL Eosinophils # 0.1 (0-0.7) k/uL Basophils # 0.0 (0-0.2) k/uL PT 10.6 (10.0-12.5) sec INR 1.0 (<1.2) APTT 24.1 (22.0-30.0) sec Sodium 136 L (137-145) mmol/L Potassium 4.7 (3.5-5.1) mmol/L Chloride 102 (98-107) mmol/L Carbon Dioxide 20 L (22-30) mmol/L Anion Gap 14 mmol/L BUN 23 H (9-20) mg/dL Creatinine 0.96 (0.66-1.25) mg/dL Est GFR (CKD-EPI)AfAm >90 (>60 ml/min/1.73 sqM) Est GFR (CKD-EPI)NonAf 79 (>60 ml/min/1.73 sqM) Glucose 158 H (74-99) mg/dL Plasma Lactic Acid Simone (0.7-2.0) mmol/L Calcium 10.5 H (8.4-10.2) mg/dL Magnesium 2.0 (1.6-2.3) mg/dL Total Bilirubin 1.4 H (0.2-1.3) mg/dL AST 41 (17-59) U/L ALT 24 (4-49) U/L Alkaline Phosphatase 317 H (38-126) U/L Total Protein 7.5 (6.3-8.2) g/dL Albumin 4.2 (3.5-5.0) g/dL Urine Color Urine Appearance (Clear) Urine pH (5.0-8.0) Ur Specific [place] (1.001-1.035) Urine Protein (Negative) Urine Glucose (UA) (Negative) Urine Ketones (Negative) Urine Blood (Negative) Urine Nitrite (Negative) Urine Bilirubin (Negative) Urine Urobilinogen (<2.0) mg/dL Ur Leukocyte Esterase (Negative) 07/11/23 07/11/23 Range/Units 09:24 11:34 WBC (3.8-10.6) k/uL RBC (4.30-5.90) m/uL Hgb (13.0-17.5) gm/dL Hct (39.0-53.0) % MCV (80.0-100.0) fL MCH (25.0-35.0) pg MCHC (31.0-37.0) g/dL RDW (11.5-15.5) % Plt Count (150-450) k/uL MPV Neutrophils % % Lymphocytes % % Monocytes % % Eosinophils % % Basophils % % Neutrophils # (1.3-7.7) k/uL Lymphocytes # (1.0-4.8) k/uL Monocytes # (0-1.0) k/uL Eosinophils # (0-0.7) k/uL Basophils # (0-0.2) k/uL PT (10.0-12.5) sec INR (<1.2) APTT (22.0-30.0) sec Sodium (137-145) mmol/L Potassium (3.5-5.1) mmol/L Chloride (98-107) mmol/L Carbon Dioxide (22-30) mmol/L Anion Gap mmol/L BUN (9-20) mg/dL Creatinine (0.66-1.25) mg/dL Est GFR (CKD-EPI)AfAm (>60 ml/min/1.73 sqM) Est GFR (CKD-EPI)NonAf (>60 ml/min/1.73 sqM) Glucose (74-99) mg/dL Plasma Lactic Acid Simone 1.2 (0.7-2.0) mmol/L Calcium (8.4-10.2) mg/dL Magnesium (1.6-2.3) mg/dL Total Bilirubin (0.2-1.3) mg/dL AST (17-59) U/L ALT (4-49) U/L Alkaline Phosphatase (38-126) U/L Total Protein (6.3-8.2) g/dL Albumin (3.5-5.0) g/dL Urine Color Light Yellow Urine Appearance Clear (Clear) Urine pH 5.0 (5.0-8.0) Ur Specific [place] 1.032 (1.001-1.035) Urine Protein Negative (Negative) Urine Glucose (UA) 4+ H (Negative) Urine Ketones 1+ H (Negative) Urine Blood Negative (Negative) Urine Nitrite Negative (Negative) Urine Bilirubin Negative (Negative) Urine Urobilinogen <2.0 (<2.0) mg/dL Ur Leukocyte Esterase Negative (Negative) Disposition Clinical Impression: Nausea & vomiting Disposition: HOME SELF-CARE Condition: Fair Instructions (If sedation given, give patient instructions): Acute Nausea and Vomiting (ED) Prescriptions: Ondansetron Odt [Zofran Odt] 4 mg PO Q8HR PRN #10 tab PRN Reason: Vomiting Is patient prescribed a controlled substance at d/c from ED?: No Referrals: Ambrocio Senior MD [Primary Care Provider] - 1-2 days Time of Disposition: 11:46
[2023-07-11 09:31] LABS: Basophils % (A) 0 %; Eosinophils # (A) 0.1 k/uL (0-0.7); Eosinophils % (A) 1 %; HCT 45.5 % (39.0-53.0); HGB 15.2 gm/dL (13.0-17.5); Lymphocytes # (A) 0.5 k/uL (1.0-4.8); Lymphocytes % (A) 5 %; MCH 32.9 pg (25.0-35.0); MCHC 33.3 g/dL (31.0-37.0); MCV 98.7 fL (80.0-100.0); Mean Platelet Volume 7.6; Monocytes # (A) 0.2 k/uL (0-1.0); Monocytes % (A) 2 %; Neutrophils # (A) 9.5 k/uL (1.3-7.7); Neutrophils % (A) 92 %; RBC 4.61 m/uL (4.30-5.90); RDW 12.7 % (11.5-15.5); WBC 10.4 k/uL (3.8-10.6)
[2023-07-11 09:41] LABS: Partial Thromboplastin Time 24.1 sec (22.0-30.0); Prothrombin Time 10.6 sec (10.0-12.5)
[2023-07-11 09:42] LABS: Platelet Count 397 k/uL (150-450)
[2023-07-11 09:43] LABS: ALT 24 U/L (4-49); AST 41 U/L (17-59); African American GFR (CKD) >90 (>60 ml/min/1.73 sqM); Albumin 4.2 g/dL (3.5-5.0); Alkaline Phosphatase 317 U/L (38-126); Anion Gap 14 mmol/L; Blood Urea Nitrogen 23 mg/dL (9-20); Calcium 10.5 mg/dL (8.4-10.2); Carbon Dioxide 20 mmol/L (22-30); Chloride 102 mmol/L (98-107); Glucose 158 mg/dL (74-99); Non-African American GFR(CKD) 79 (>60 ml/min/1.73 sqM); Potassium 4.7 mmol/L (3.5-5.1); Sodium 136 mmol/L (137-145); Total Bilirubin 1.4 mg/dL (0.2-1.3); Total Protein 7.5 g/dL (6.3-8.2)
[2023-07-11] MEDS: ONDANSETRON 4 MG/2 ML VIAL IVP STA (09:57)
[2023-07-11] MEDS: SODIUM CHLORIDE 0.9% 1,000 ML IV ONE (09:57)
[2023-07-11] MEDS: HYDROmorphone 0.5 MG/0.5 ML SYRINGE IVP STA (10:02)
[2023-07-11 11:39] LABS: Appearance,Urine Clear (Clear); Bilirubin,Urine Negative (Negative); Blood,Urine Negative (Negative); Color,Urine Light Yellow; Glucose,Urine (UA) 4+ (Negative); Ketones,Urine 1+ (Negative); Leukocyte Esterase,Urine Negative (Negative); Nitrite,Urine Negative (Negative); Protein,Urine Negative (Negative); Specific Gravity,Urine 1.032 (1.001-1.035); Urobilinogen,Urine <2.0 mg/dL (<2.0)
[2023-07-11 13:26] VITALS: BP 162/80; PULSE 91; RESP 18
== END 2023-07-11 13:20 | disposition home or self-care (01) ==
LOC: EC 08:25
DX: R11.2 Nausea with vomiting, unspecified (principal); Z88.2 Allergy status to sulfonamides
CPT/HCPCS: 36415; 93005; 80053; 83605; 83735; 85025; 85610; 85730; 81003; 99284; 96374; 96375; 96361 ×2; J2405; J1170

== ENCOUNTER 2023-08-04 14:33 | Emergency (ER) | payer MEDICARE ==
--- NOTE | 2023-08-04 15:16 | ED ---
General Adult HPI - General Source: patient, family, RN notes reviewed, old records reviewed Limitations: no limitations <Ulysses Torres - Last Filed: 08/04/23 15:06> <Donovan Edwards - Last Filed: 08/04/23 20:15> - General Stated complaint: DR referral, cancer Time Seen by Provider: 08/04/23 14:39 - History of Present Illness Initial comments: Quick note 72-year-old male presents emergency department from oncology office for evaluation of abdominal pain, hallucinations. Patient has recent diagnosis of cancer which has metastasized patient has had some radiation no chemotherapy. Patient having increased abdominal pain, reports of increasing confusion and h allucinations patient has had PET scan. Patient was sent over here for pain control and evaluation (Ulysses Torres) Dictation was produced using [employer] dictation software. please excuse any grammatical, word or spelling errors. Chief Complaint: 72-year-old male presents emergency department for constipation History of Present Illness: Patient 72-year-old male he has past medical history of lung cancer and back and abdominal cancer. He was told to come here to the emergency department for concerns of constipation. He allegedly has not had a bowel movement in 12 to 14 days. He has been passing some gas. Complains of some mild nausea and poor appetite however has still been eating. Complains of some left lower quadrant abdominal pain. Patient has been dealing with abdominal issues for the last several months. Denies any fever, chills or night sweats The ROS documented in this emergency department record has been reviewed and confirmed by me. Those systems with pertinent positive or negative responses have been documented in the HPI. All other systems are other negative and/or noncontributory. (Donovan Edwards) - Related Data Home Medications Medication Instructions Recorded Confirmed Ascorbic Acid [Vitamin C] 1,000 mg PO DAILY 06/19/23 08/04/23 Aspirin EC [Ecotrin Low Dose] 81 mg PO HS 06/19/23 08/04/23 Atorvastatin Calcium [Lipitor] 80 mg PO HS 06/19/23 08/04/23 Cholecalciferol [Vitamin D3 (25 75 mcg PO W/LUNCH 06/19/23 08/04/23 Mcg = 1000 Iu)] Dapagliflozin Propanediol [Farxiga] 10 mg PO DAILY 06/19/23 08/04/23 Ezetimibe [Zetia] 10 mg PO HS 06/19/23 08/04/23 Famotidine [Pepcid] 20 mg PO BID 06/19/23 08/04/23 Finasteride [Proscar] 5 mg PO DAILY 06/19/23 08/04/23 Metoprolol Tartrate [Lopressor] 50 mg PO BID 06/19/23 08/04/23 Mv-Min/Folic/K1/Lycopen/Lutein 1 tab PO W/LUNCH 06/19/23 08/04/23 [Centrum Silver Men Tablet] Victoria-3/Dha/Epa/Fish Oil [Fish Oil 1 cap PO TID 06/19/23 08/04/23 1,000 mg Softgel] cilostazoL 100 mg PO DAILY 06/19/23 08/04/23 Amiodarone [Cordarone] 200 mg PO DAILY 08/04/23 08/04/23 Apixaban [Eliquis] 5 mg PO BID 08/04/23 08/04/23 Gabapentin [Neurontin] 300 mg PO W/LUNCH 08/04/23 08/04/23 Gabapentin [Neurontin] 600 mg PO BID@0900,2100 08/04/23 08/04/23 Lactulose 10 gm PO DAILY PRN 08/04/23 08/04/23 Losartan [Cozaar] 25 mg PO HS 08/04/23 08/04/23 Morphine Sulfate Ir [MSIR] 15 mg PO Q4H PRN 08/04/23 08/04/23 Sennosides/Docusate Sodium 1 tab PO BID 08/04/23 08/04/23 [Senna-S 8.6-50 mg Tablet] fentaNYL 50MCG/HR PATCH [Duragesic 1 patch TRANSDERM Q72H 08/04/23 08/04/23 50MCG/HR] Allergies Allergy/AdvReac Type Severity Reaction Status Date / Time Sulfa (Sulfonamide Allergy Rash/Hives/ Verified 08/04/23 17:13 Antibiotics) SOB Review of Systems ROS Other: All systems not noted in ROS Statement are negative. <Ulysses Torres - Last Filed: 08/04/23 15:06> ROS Other: All systems not noted in ROS Statement are negative. <Donovan Edwards - Last Filed: 08/04/23 20:15> ROS Statement: Those systems with pertinent positive or pertinent negative responses have been documented in the HPI. Past Medical History Past Medical History: Diabetes Mellitus, Hypertension Additional Past Medical History / Comment(s): AAA - 2010 History of Any Multi-Drug Resistant Organisms: None Reported Additional Past Surgical History / Comment(s): Aortic aneurysm repair Past Anesthesia/Blood Transfusion Reactions: No Reported Reaction Past Psychological History: No Psychological Hx Reported Smoking Status: Never smoker Past Alcohol Use History: Rare Past Drug Use History: None Reported <Ulysses Torres - Last Filed: 08/04/23 15:06> General Exam <Ulysses Torres - Last Filed: 08/04/23 15:06> <Donovan Edwards - Last Filed: 08/04/23 20:15> - General Exam Comments Initial Comments: Visual Physical Exam Vital signs reviewed General: Well-appearing, nontoxic, no acute distress. Head: Normocephalic, atraumatic Eyes: PERRLA, EOMI ENT: Airway patent Chest: Nonlabored breathing Skin: No visual rash, normal skin tone Neuro: Alert and oriented 3 Musculoskeletal: No gross abnormalities (Ulysses Torres) PHYSICAL EXAM: General Impression: Alert and oriented x3, not in acute distress HEENT: Normocephalic atraumatic, extra-ocular movements intact, pupils equal and reactive to light bilaterally, mucous membranes moist. Cardiovascular: Heart regular rate and rhythm Chest: Able to complete full sentences, no retractions, no tachypnea Abdomen: abdomen soft, mild left lower quadrant tenderness r, non-distended, no organomegaly Musculoskeletal: Pulses present and equal in all extremities, no peripheral edema Motor: no focal deficits noted Neurological: CN II-XII grossly intact, no focal motor or sensory deficits noted Skin: Intact with no visualized rashes Psych: Normal affect and mood (Donovan Edwards) Course Vital Signs 08/04/23 15:18 Temperature 97.9 F Pulse Rate 75 Respiratory 16 Rate Blood Pressure 103/69 O2 Sat by Pulse 94 L Oximetry Medical Decision Making <Ulysses Torres - Last Filed: 08/04/23 15:06> - Lab Data Result diagrams: 08/04/23 16:00 08/04/23 16:00 <Donovan Edwards - Last Filed: 08/04/23 20:15> - Medical Decision Making I completed the quick note portion of this chart signed Ulysses Torres PA-C (Ulysses Torres) Was pt. sent in by a medical professional or institution (ELIZABETH Johnson, PIPED BUTTONHOLE MACHINE OPERATOR, urgent care, hospital, or fdc...) When possible be specific @ -Sent by midlevel provider from oncology office Did you speak to anyone other than the patient for history (EMS, parent, family, police, friend...)? What history was obtained from this source @ -History obtained from . She also reports that patient is having hallucinations. Patient amanda Villafuerte has been having some visual conte llucinations ongoing for the last month Did you review nursing and triage notes (agree or disagree)? Why? @ -I reviewed and agree with nursing and triage notes Were old charts reviewed (outside hosp., previous admission, EMS record, old EKG, old radiological studies, urgent care reports/EKG's, fdc records)? Report findings @ -No old charts were reviewed Differential Diagnosis (chest pain, altered mental status, abdominal pain women, abdominal pain men, vaginal bleeding, musculoskeletal, weakness, fever, dyspnea, syncope, headache, dizziness, GI bleed, back pain, seizure, CVA, palpatations, mental health)? @ -Differential Abdominal Pain Men: Appendicitis, cholecystitis, diverticulosis, ischemic bowel, pancreatitis, hepatitis, UTI, gastroenteritis, AAA, incarcerated hernia, bowel obstruction, constipation, inflammatory bowel, hepatitis, peptic ulcer disease, splenic infarction, perforated viscus, testicular torsion, this is not meant to be an all-inclusive list EKG interpreted by me (3pts min.). @ -None done X-rays interpreted by me (1pt min.). @ -KUB x-ray is nonacute CT interpreted by me (1pt min.). @ -CT brain is nonacute.. CT of the abdomen pelvis was obtained showing no acute processes. There is some mild fecal retention present. U/S interpreted by me (1pt. min.). @ -None done What testing was considered but not performed or refused? (CT, X-rays, U/S, labs)? Why? @ -None What meds were considered but not given or refused? Why? @ -None Did you discuss the management of the patient with other professionals (professionals i.e. , PA, PIPED BUTTONHOLE MACHINE OPERATOR, lab, RT, psych nurse, social work specialist, well servicing rig operator, teacher, adult parole officer, case mgr)? Give summary @ -No Was smoking cessation discussed for >3mins.? @ -No Was critical care preformed (if so, how long)? @ -No Were there social determinants of health that impacted care today? How? (Homelessness, low income, unemployed, alcoholism, drug addiction, transportation, low edu. Level, literacy, decrease access to med. care, [facility] [facility], rehab)? @ -No Was there de-escalation of care discussed even if they declined (Discuss DNR or withdrawal of care, Hospice)? DNR status @ -No What co-morbidities impacted this encounter? (DM, HTN, Smoking, COPD, CAD, Cancer, CVA, ARF, Chemo, Hep., AIDS, mental health diagnosis, sleep apnea, morbid obesity)? @ -None Was patient admitted / discharged? Hospital course, mention meds given and route, prescriptions, significant lab abnormalities, going to OR and other pertinent info. @ -72-year-old male presents to the emergency department for concerns of constipation. He is also having 1 month of hallucinations. Vital signs upon arrival are within acceptable limits. Physical exam is unremarkable. He is well-appearing at the bedside ANO x 4. He is in no acute distress. Laboratory evaluation obtained. CBC, coag and metabolic panel is unremarkable. Analysis negative. CT shows mild fecal retention. Patient given GoLytely to go home with advised to follow-up with primary care doctor. Family and patient are agreeable with plan. Undiagnosed new problem with uncertain prognosis? @ -No Drug Therapy requiring intensive monitoring for toxicity (Heparin, Nitro, Ins ulin, Cardizem)? @ -No Were any procedures done? @ -No Diagnosis/symptom? Acute, or Chronic, or Acute on Chronic? Uncomplicated (without systemic symptoms) or Complicated (systemic symptoms)? @ -Constipation Side effects of treatment? @ -No Exacerbation, Progression, or Severe Exacerbation? @ -No Poses a threat to life or bodily function? How? (Chest pain, USA, OR, pneumonia, PE, COPD, DKA, ARF, appy, cholecystitis, CVA, Diverticulitis, Homicidal, Suicidal, threat to staff... and all critical care pts) @ -No (Donovan Edwards - Lab Data Lab Results 08/04/23 08/04/23 08/04/23 Range/Units 16:00 16:00 16:00 WBC 5.6 (3.8-10.6) k/uL RBC 4.84 (4.30-5.90) m/uL Hgb 15.8 (13.0-17.5) gm/dL Hct 47.5 (39.0-53.0) % MCV 98.3 (80.0-100.0) fL MCH 32.7 (25.0-35.0) pg MCHC 33.2 (31.0-37.0) g/dL RDW 13.6 (11.5-15.5) % Plt Count 253 (150-450) k/uL MPV 7.9 Neutrophils % 68 % Lymphocytes % 14 % Monocytes % 10 % Eosinophils % 5 % Basophils % 1 % Neutrophils # 3.8 (1.3-7.7) k/uL Lymphocytes # 0.8 L (1.0-4.8) k/uL Monocytes # 0.6 (0-1.0) k/uL Eosinophils # 0.3 (0-0.7) k/uL Basophils # 0.1 (0-0.2) k/uL PT 10.6 (10.0-12.5) sec INR 1.0 (<1.2) APTT 24.7 (22.0-30.0) sec Sodium 136 L (137-145) mmol/L Potassium 4.4 (3.5-5.1) mmol/L Chloride 99 (98-107) mmol/L Carbon Dioxide 27 (22-30) mmol/L Anion Gap 10 mmol/L BUN 18 (9-20) mg/dL Creatinine 1.10 (0.66-1.25) mg/dL Est GFR (CKD-EPI)AfAm 77 (>60 ml/min/1.73 sqM) Est GFR (CKD-EPI)NonAf 66 (>60 ml/min/1.73 sqM) Glucose 93 (74-99) mg/dL Plasma Lactic Acid Simone (0.7-2.0) mmol/L Calcium 10.2 (8.4-10.2) mg/dL Magnesium 1.8 (1.6-2.3) mg/dL Total Bilirubin 1.2 (0.2-1.3) mg/dL AST 44 (17-59) U/L ALT 23 (4-49) U/L Alkaline Phosphatase 319 H (38-126) U/L Ammonia (<30) umol/L Total Protein 7.7 (6.3-8.2) g/dL Albumin 4.4 (3.5-5.0) g/dL Lipase 72 (23-300) U/L Urine Color Urine Appearance (Clear) Urine pH (5.0-8.0) Ur Specific [place] (1.001-1.035) Urine Protein (Negative) Urine Glucose (UA) (Negative) Urine Ketones (Negative) Urine Blood (Negative) Urine Nitrite (Negative) Urine Bilirubin (Negative) Urine Urobilinogen (<2.0) mg/dL Ur Leukocyte Esterase (Negative) 08/04/23 08/04/23 Range/Units 16:00 17:04 WBC (3.8-10.6) k/uL RBC (4.30-5.90) m/uL Hgb (13.0-17.5) gm/dL Hct (39.0-53.0) % MCV (80.0-100.0) fL MCH (25.0-35.0) pg MCHC (31.0-37.0) g/dL RDW (11.5-15.5) % Plt Count (150-450) k/uL MPV Neutrophils % % Lymphocytes % % Monocytes % % Eosinophils % % Basophils % % Neutrophils # (1.3-7.7) k/uL Lymphocytes # (1.0-4.8) k/uL Monocytes # (0-1.0) k/uL Eosinophils # (0-0.7) k/uL Basophils # (0-0.2) k/uL PT (10.0-12.5) sec INR (<1.2) APTT (22.0-30.0) sec Sodium (137-145) mmol/L Potassium (3.5-5.1) mmol/L Chloride (98-107) mmol/L Carbon Dioxide (22-30) mmol/L Anion Gap mmol/L BUN (9-20) mg/dL Creatinine (0.66-1.25) mg/dL Est GFR (CKD-EPI)AfAm (>60 ml/min/1.73 sqM) Est GFR (CKD-EPI)NonAf (>60 ml/min/1.73 sqM) Glucose (74-99) mg/dL Plasma Lactic Acid Simone 1.2 (0.7-2.0) mmol/L Calcium (8.4-10.2) mg/dL Magnesium (1.6-2.3) mg/dL Total Bilirubin (0.2-1.3) mg/dL AST (17-59) U/L ALT (4-49) U/L Alkaline Phosphatase (38-126) U/L Ammonia <9 (<30) umol/L Total Protein (6.3-8.2) g/dL Albumin (3.5-5.0) g/dL Lipase (23-300) U/L Urine Color Yellow Urine Appearance Clear (Clear) Urine pH 5.5 (5.0-8.0) Ur Specific [place] 1.034 (1.001-1.035) Urine Protein Trace H (Negative) Urine Glucose (UA) 4+ H (Negative) Urine Ketones 1+ H (Negative) Urine Blood Negative (Negative) Urine Nitrite Negative (Negative) Urine Bilirubin Negative (Negative) Urine Urobilinogen 3.0 (<2.0) mg/dL Ur Leukocyte Esterase Negative (Negative) Disposition <Ulysses Torres - Last Filed: 08/04/23 15:06> Is patient prescribed a controlled substance at d/c from ED?: No Time of Disposition: 20:15 <Donovan Edwards - Last Filed: 08/04/23 20:15> Clinical Impression: Constipation Disposition: HOME SELF-CARE Condition: Fair Instructions (If sedation given, give patient instructions): Constipation (ED) Referrals: Ambrocio Senior MD [Primary Care Provider] - 1-2 days
[2023-08-04 15:24] VITALS: RESP 16
[2023-08-04 16:19] LABS: Basophils # (A) 0.1 k/uL (0-0.2); Basophils % (A) 1 %; Eosinophils # (A) 0.3 k/uL (0-0.7); Eosinophils % (A) 5 %; HCT 47.5 % (39.0-53.0); HGB 15.8 gm/dL (13.0-17.5); Lymphocytes # (A) 0.8 k/uL (1.0-4.8); Lymphocytes % (A) 14 %; MCH 32.7 pg (25.0-35.0); MCHC 33.2 g/dL (31.0-37.0); MCV 98.3 fL (80.0-100.0); Mean Platelet Volume 7.9; Monocytes # (A) 0.6 k/uL (0-1.0); Monocytes % (A) 10 %; Neutrophils # (A) 3.8 k/uL (1.3-7.7); Neutrophils % (A) 68 %; Platelet Count 253 k/uL (150-450); RBC 4.84 m/uL (4.30-5.90); RDW 13.6 % (11.5-15.5); WBC 5.6 k/uL (3.8-10.6)
[2023-08-04 16:28] LABS: Lactic Acid, Venous 1.2 mmol/L (0.7-2.0)
[2023-08-04 16:30] LABS: ALT 23 U/L (4-49); AST 44 U/L (17-59); African American GFR (CKD) 77 (>60 ml/min/1.73 sqM); Albumin 4.4 g/dL (3.5-5.0); Alkaline Phosphatase 319 U/L (38-126); Anion Gap 10 mmol/L; Blood Urea Nitrogen 18 mg/dL (9-20); Calcium 10.2 mg/dL (8.4-10.2); Carbon Dioxide 27 mmol/L (22-30); Chloride 99 mmol/L (98-107); Glucose 93 mg/dL (74-99); Lipase 72 U/L (23-300); Magnesium 1.8 mg/dL (1.6-2.3); Non-African American GFR(CKD) 66 (>60 ml/min/1.73 sqM); Potassium 4.4 mmol/L (3.5-5.1); Sodium 136 mmol/L (137-145); Total Bilirubin 1.2 mg/dL (0.2-1.3); Total Protein 7.7 g/dL (6.3-8.2)
--- NOTE | 2023-08-04 17:05 | XR ---
EXAMINATION TYPE: XR KUB DATE OF EXAM: 08/04/2023 COMPARISON: None INDICATION: Abdomen pain TECHNIQUE: Single view abdomen upright view FINDINGS: No differential air-fluid levels are present. Couple of nonspecific air-fluid levels may b e in the epigastric region. There appears to be predominantly colonic. Psoas margins are normal. No organomegaly is present. IMPRESSION: 1. Nonspecific abdomen
[2023-08-04 17:37] LABS: Appearance,Urine Clear (Clear); Bilirubin,Urine Negative (Negative); Blood,Urine Negative (Negative); Color,Urine Yellow; Glucose,Urine (UA) 4+ (Negative); Ketones,Urine 1+ (Negative); Leukocyte Esterase,Urine Negative (Negative); Nitrite,Urine Negative (Negative); PH, Urine 5.5 (5.0-8.0); Protein,Urine Trace (Negative); Specific Gravity,Urine 1.034 (1.001-1.035)
[2023-08-04 17:38] LABS: Partial Thromboplastin Time 24.7 sec (22.0-30.0); Prothrombin Time 10.6 sec (10.0-12.5)
--- NOTE | 2023-08-04 17:52 | CT ---
EXAMINATION TYPE: CT brain wo con DATE OF EXAM: 08/04/2023 COMPARISON: MRI brain 07/08/2023 INDICATION: Confusion DLP: 1091.4 mGycm, Automated exposure control for dose reduction was used. CONTRAST: None CT of the brain is performed utilizing 3 mm thick sections through the posterior fossa and 3 mm thick sections through the remaining calvarium. Study is performed within 24 hours of arrival to the hosp ital. No abnormal hyperdensity is present to suggest an acute intracranial hemorrhage. No mass lesion is evident. No acute infarcts are evident. Ventricles and sulci are appropriate for the patient age. Paranasal sinuses and mastoid air cells within the [id number] are clear. IMPRESSION: 1. No acute intracranial process radiographically apparent. Follow-up can be performed as clinicall y indicated.
--- NOTE | 2023-08-04 18:45 | CT ---
EXAMINATION TYPE: CT abdomen pelvis w con DATE OF EXAM: 08/04/2023 COMPARISON: PET/CT 07/10/2023 INDICATION: abdominal pain DLP: 1793 mGycm, Automated exposure control for dose reduction was used. CONTRAST: 80 mL of Isovue 300. Study performed without Oral Contrast TECHNIQUE: Axial images were obtained from above the diaphragm to the pubic rami in the axial plane a t 5 mm thick sections. Reconstructed images are reviewed on the computer in the coronal plane. FINDINGS: Limited CT sections are obtained the lung bases. Multiple punctate nodules are at the lung bases. CT ABDOMEN: Liver: Mild fatty infiltration. Spleen: Normal Pancreas: Mildly atrophic Adrenal glands: The adrenal glands are normal. Gallbladder: Normal Kidneys: No masses are evident. No hydronephrosis is present. No cysts are present. Delayed images were obtained through the kidneys, which remain unremarkable. Aorta: Vascular calcification is within the aorta. There is mild prominence of the abdominal aorta w ith AP diameter 3.0 cm. This terminates at the bifurcation. Inferior vena cava: Normal. CT PELVIS: Loops of bowel within the abdomen and pelvis are normal. Fecal debris is within the colon. There a re loops of bowel which are incompletely distended or lack oral contrast limiting their evaluation. Appendix: Normal as visualized. Urinary bladder: Normal. Genitourinary structures: Prostate is prominent. Osseous structures: There may be a lytic lesion within the lower vertebral body, series 201 image 1. There is a large lytic lesion within the lower thoracic spine, image 13. Lytic lesions. Within the mason mbar vertebral bodies. Facet hypertrophy is at the lower lumbar spine. IMPRESSION: 1. No suspicious dilated loops of bowel suggest constipation or obstruction. There is some mild feca l retention present. 2. Multiple punctate nodules within the dependent lung bases suspicious for multiple metastatic lesio ns. 3. Multiple lytic lesions within the lower thoracic and lumbar spine
[2023-08-04] MEDS: polyethylene glycoL 3350 17 GM POWD.PACK PO STA (19:17)
[2023-08-04] MEDS: PEG 3350 (236 GM/BTL) + LYTES 4,000 ML BOTTLE PO ONE (20:34)
[2023-08-04 21:02] VITALS: BP 137/82; PULSE 73; TEMP 98.2
== END 2023-08-04 20:31 | disposition home or self-care (01) ==
LOC: EC 14:33
DX: K59.00 Constipation, unspecified (principal); Z88.2 Allergy status to sulfonamides
CPT/HCPCS: 36415; 80053; 82140; 83605; 83690; 83735; 85025; 85610; 85730; 81003; 74018; 70450; 74177; 99284; Q9967; 96361; 96374; 96375; 96376